=== PATIENT | male | born 1965 | race Caucasian/White ===

== ENCOUNTER 2018-02-19 07:22 | Emergency (ER) | payer BC ==
[2018-02-19] MEDS ORDERED: KETOROLAC 60 MG/2 ML VIAL IM STA (07:50)
--- NOTE | 2018-02-19 07:52 | ED ---
General Adult HPI - General Chief complaint: Fall Stated complaint: Fall-SHoulder and Hip Pain Time Seen by Provider: 02/19/18 07:22 Source: patient, RN notes reviewed Mode of arrival: ambulatory Limitations: no limitations - History of Present Illness Initial comments: This is a 53-year-old male who states she was standing on a chair when his left leg gave out which occasionally will he fell off the chair landed on his left shoulder and his left lower back. Patient comes in after a week of pain and states his shoulder still hurts in his left lower back hurts as well. Patient states the pain does not seem to be improving patient states not taking any pain medicines at all at this time he is not taking any Aleve or Motrin. Patient denies any head trauma or neck pain. Patient denies any chest pain or abdominal pain. Patient denies any upper back pain. Patient denies any other problems at this time. - Related Data Previous Rx's Medication Instructions Recorded Hydrocodone/Acetaminophen [[place] 1 each PO Q4HR PRN #14 tab 02/19/18 5-325] Ibuprofen [Motrin] 600 mg PO Q6HR PRN #20 tab 02/19/18 Allergies Allergy/AdvReac Type Severity Reaction Status Date / Time celecoxib [From Celebrex] Allergy Rash/Hives Verified 02/19/18 07:27 Review of Systems ROS Statement: Those systems with pertinent positive or pertinent negative responses have been documented in the HPI. ROS Other: All systems not noted in ROS Statement are negative. Past Medical History Additional Past Medical History / Comment(s): chronic back pain History of Any Multi-Drug Resistant Organisms: None Reported Past Surgical History: Back Surgery, Orthopedic Surgery Past Psychological History: No Psychological Hx Reported Smoking Status: Former smoker Past Alcohol Use History: Occasional Past Drug Use History: None Reported General Exam - General Exam Comments Initial Comments: GENERAL Patient is well-developed and well-nourished. Patient is in mild distress. EYES Patient's pupils are equal and round. Extraocular motion is intact SKIN Unremarkable NEURO The patient is alert and oriented 3 PYSCH Patient has normal interpersonal interactions. MUSCULOSKELETAL Patient has some tenderness in the left lower back. Patient has some lateral shoulder tenderness but he has full range of motion of that shoulder. Patient has full range of motion of his left hip as well. Limitations: no limitations Course Vital Signs 02/19/18 07:24 Temperature 98.0 F Pulse Rate 77 Respiratory 18 Rate Blood Pressure 150/85 O2 Sat by Pulse 99 Oximetry Medical Decision Making - Medical Decision Making Results the shoulder and hip pelvis and lumbar spine show no acute abnormalities. Disposition Clinical Impression: Shoulder contusion, Lumbar strain Disposition: HOME SELF-CARE Condition: Good Instructions: Low Back Strain (ED) Prescriptions: Hydrocodone/Acetaminophen [Waxhaw 5-325] 1 each PO Q4HR PRN #14 tab PRN Reason: Pain Ibuprofen [Motrin] 600 mg PO Q6HR PRN #20 tab PRN Reason: For pain Is patient prescribed a controlled substance at d/c from ED?: Yes When asked, does pt state using other controlled substances?: No Referrals: None,Stated [Primary Care Provider] - 1-2 days Time of Disposition: 08:49
--- NOTE | 2018-02-19 08:35 | XR ---
EXAMINATION TYPE: XR Hip Complete LT , 2 VIEWS DATE OF EXAM ORDERED: 02/19/2018 HISTORY: Pain. COMPARISON: None. FINDINGS: There is heterotopic new bone formation adjacent to the greater trochanter of the left hip . No fracture is identified. IMPRESSION: NO ACUTE OSSEOUS LESION.
--- NOTE | 2018-02-19 08:36 | XR ---
EXAMINATION TYPE: XR pelvis AP view , ONE VIEW DATE OF EXAM ORDERED: 02/19/2018 HISTORY: Pain. COMPARISON: None. FINDINGS: Osseous structures about the pelvis are normal. No fracture or dislocation is seen. There are degenerative changes of both hips. There is heterotopic new bone seen adjacent to the greater tro chanter of the left hip. IMPRESSION: NO ACUTE OSSEOUS LESION.
--- NOTE | 2018-02-19 08:38 | XR ---
EXAMINATION TYPE: XR lumbar spine 2 or 3V , 3 VIEWS DATE OF EXAM ORDERED: 02/19/2018 HISTORY: Pain. COMPARISON: Previous study dated 04/07/2009. FINDINGS: There is a mild dextroscoliosis. There is a mild retrograde listhesis of L3 on L4. Alignment otherwise maintained. There is degenerati ve disc disease most marked at L3-4. This hypertrophic spondylosis and mild spondylosis deformans. Th e pedicles are intact. There is no spondylolysis. IMPRESSION: 1. NO ACUTE OSSEOUS LESION. 2. MODERATE DEGENERATIVE CHANGE.
--- NOTE | 2018-02-19 08:40 | XR ---
EXAMINATION TYPE: XR shoulder complete LT , 3 VIEWS DATE OF EXAM ORDERED: 02/19/2018 HISTORY: Pain. COMPARISON: None. FINDINGS: There is osseous malunion of a fracture of the distal one third of the left clavicle. No a cute fracture is seen. No dislocation is evident. IMPRESSION: 1. NO ACUTE OSSEOUS LESION. 2. OLD, MALUNION FRACTURE OF THE DISTAL LEFT CLAVICLE. CODE P: SUBSEQUENT ENCOUNTER FOR CLOSED FRACTURE WITH MALUNION.
[2018-02-19 09:11] VITALS: BP 149/83; PULSE 73; RESP 16; TEMP 97.7
== END 2018-02-19 09:14 | disposition home or self-care (01) ==
LOC: EC 07:22
DX: S39.012A Strain of muscle, fascia and tendon of lower back, initial encounter (principal); S40.012A Contusion of left shoulder, initial encounter; Z87.891 Personal history of nicotine dependence; Z88.6 Allergy status to analgesic agent; W07.XXXA Fall from chair, initial encounter
CPT/HCPCS: 72100; 72170; 73030; 73502; 99283; 96372; J1885

== ENCOUNTER 2020-06-04 09:51 | Observation (INO) | payer BC, MEDICARE ==
[2020-06-04] MEDS ORDERED: IPRATROPIUM-ALBUTEROL 3 ML NEB INHALATION STA (10:38)
--- NOTE | 2020-06-04 10:39 | ED ---
Chest Pain HPI - General Chief Complaint: Chest Pain Stated Complaint: Chest pain Time Seen by Provider: 06/04/20 09:55 Source: patient Mode of arrival: ambulatory Limitations: no limitations - History of Present Illness Initial Comments: Patient is a 55-year-old male with past history of asthma who presents to the emergency department with reported chest pain and shortness of breath. Patient reports that for the past month he feels as if his asthma has been acting up on him. States he wakes up every day with chest pressure and inability to his br eath. Reports he does not have any inhalers at home to use. Has a mild productive cough with yellow sputum. No fevers or chills. No sick contacts or similar symptoms. No contact with anyone positive of Covid. Denies any calf pain or swelling. No recent travel. No history of DVT or PE. Patient reports that he has been drinking every day to help drowned out his symptoms. Attempts to try and quit drinking at home on his own however has been unsuccessful. Denies any withdrawal seizures. States he drinks a fifth per day. Reports to feeling depressed however not suicidal. Has had a previous stress test however this was when he was 31 years old. No ripping or tearing sensation to his back. No other alleviating, precipitating or modifying factors - Related Data Home Medications Medication Instructions Recorded Confirmed Multivitamins, Thera [Multivitamin 1 tab PO DAILY 06/04/20 06/04/20 (formulary)] Allergies Allergy/AdvReac Type Severity Reaction Status Date / Time celecoxib [From Celebrex] Allergy Rash/Hives Verified 06/04/20 11:00 Review of Systems ROS Statement: Those systems with pertinent positive or pertinent negative responses have been documented in the HPI. ROS Other: All systems not noted in ROS Statement are negative. EKG Findings - EKG Comments: EKG Findings:: EKG demonstrates a normal sinus rhythm with a ventricular rate of 80. ND interval 134. QRS 132. QTC of 463. Right bundle branch block present. No acute ST segment elevations or depressions concerning for ischemic changes or infarction. Past Medical History Past Medical History: Asthma Additional Past Medical History / Comment(s): chronic back pain History of Any Multi-Drug Resistant Organisms: None Reported Past Surgical History: Back Surgery, Orthopedic Surgery Additional Past Surgical History / Comment(s): shoulders, femer Past Psychological History: Depression Smoking Status: Former smoker Past Alcohol Use History: Daily Past Drug Use History: None Reported - Past Family History Father Family Medical History: Cancer Additional Family Medical History / Comment(s): Father from metastatic cancer/lung cancer Mother Family Medical History: Renal Disease Additional Family Medical History / Comment(s): Mother was on dialysis. She is . General Exam Limitations: no limitations Course Vital Signs 06/04/20 06/04/20 06/04/20 09:52 10:25 10:30 Temperature 98.4 F Pulse Rate 89 87 Pulse Rate [ 83 Curing Press Operator ] Respiratory 18 16 Rate Blood Pressure 164/97 150/101 O2 Sat by Pulse 100 97 Oximetry 06/04/20 06/04/20 06/04/20 10:48 10:57 11:00 Temperature Pulse Rate 84 88 85 Pulse Rate [ Curing Press Operator ] Respiratory 16 Rate Blood Pressure O2 Sat by Pulse 97 Oximetry 06/04/20 06/04/20 11:30 12:04 Temperature Pulse Rate 84 85 Pulse Rate [ Curing Press Operator ] Respiratory 16 16 Rate Blood Pressure 147/95 139/89 O2 Sat by Pulse 98 98 Oximetry Chest Pain MDM - MDM Upon arrival the patient is placed into room 2. A thorough history and physical exam is performed. Patient is hooked up to continuous pulse ox and cardiac monitoring. A 12-lead EKG is performed. Laboratory studies are conducted. D- dimer 0.51 which is age appropriate. Serum alcohol is 151. Troponin is negative. Chest x-ray demonstrates hyperinflated lungs. I discuss the diagnosis, differential and treatment options. I did recommend hospital admission orders from the patient's troponins and get a cardiology consultation. Patient will be placed on alcohol withdrawal for occult. The patient did agree to this plan. I discussed case with Dr. Quesada who agreed to admission. The patient was then transferred to the floor in stable condition Disposition Clinical Impression: Chest pain, Alcohol abuse, COPD (chronic obstructive pulmonary disease) Disposition: ADMITTED IP TO THIS HOSP Condition: Stable Is patient prescribed a controlled substance at d/c from ED?: No Decision to Admit Reason: Admit from EC Decision Date: 06/04/20 Decision Time: 12:14
[2020-06-04 10:42] LABS: Basophils # (A) 0.1 k/uL (0-0.2); Basophils % (A) 1 %; Eosinophils # (A) 0.1 k/uL (0-0.7); Eosinophils % (A) 1 %; HCT 49.1 % (39.0-53.0); HGB 16.2 gm/dL (13.0-17.5); Lymphocytes % (A) 15 %; MCH 32.5 pg (25.0-35.0); MCV 98.4 fL (80.0-100.0); Mean Platelet Volume 6.7; Monocytes # (A) 0.6 k/uL (0-1.0); Monocytes % (A) 9 %; Neutrophils # (A) 4.8 k/uL (1.3-7.7); Neutrophils % (A) 70 %; Platelet Count 324 k/uL (150-450); RBC 4.99 m/uL (4.30-5.90); RDW 12.3 % (11.5-15.5); WBC 6.8 k/uL (3.8-10.6)
[2020-06-04 10:48] LABS: Partial Thromboplastin Time 22.5 sec (22.0-30.0); Prothrombin Time 10.6 sec (9.0-12.0)
--- NOTE | 2020-06-04 10:49 | XR ---
EXAMINATION TYPE: XR chest 2V DATE OF EXAM: 06/04/2020 COMPARISON: 04/07/2009 TECHNIQUE: PA and lateral views submitted. HISTORY: Chest pain FINDINGS: The lungs are clear and there is no pneumothorax, pleural effusion, or focal pneumonia. Arthropathy of the shoulders. Hypertrophic and degenerative change of the spine. Hyperinflation of the lungs. No overt failure. Heart size normal. No overt failure. IMPRESSION: 1. No acute process. Correlate for COPD or asthma.
[2020-06-04 10:50] LABS: ALT 42 U/L (4-49); AST 70 U/L (17-59); African American GFR (CKD) >90 (>60 ml/min/1.73 sqM); Albumin 4.8 g/dL (3.5-5.0); Alkaline Phosphatase 90 U/L (38-126); Anion Gap 10 mmol/L; Blood Urea Nitrogen 7 mg/dL (9-20); Calcium 9.4 mg/dL (8.4-10.2); Carbon Dioxide 26 mmol/L (22-30); Chloride 102 mmol/L (98-107); Glucose 108 mg/dL (74-99); Magnesium 2.1 mg/dL (1.6-2.3); Non-African American GFR(CKD) >90 (>60 ml/min/1.73 sqM); Potassium 3.8 mmol/L (3.5-5.1); Sodium 138 mmol/L (137-145); Total Bilirubin 0.7 mg/dL (0.2-1.3); Total Protein 7.6 g/dL (6.3-8.2)
[2020-06-04 10:57] LABS: Alcohol 151 mg/dL
[2020-06-04] MEDS ORDERED: THIAMINE 100 MG/ML 2 ML VIAL IM STA (12:12)
[2020-06-04] MEDS ORDERED: LORazepam 2 MG/ML INJ IV PRN (12:12)
[2020-06-04] MEDS ORDERED: NALOXONE 0.4 MG/ML 1 ML VIAL IV PRN (12:15)
[2020-06-04] MEDS ORDERED: methylPREDNISolone SOD SUCCI 125 MG/2 ML VIAL IV STA (12:23)
[2020-06-04] MEDS: SODIUM CHLORIDE 0.9% 1,000 ML IV SCH (13:00)
[2020-06-04] MEDS ORDERED: HYDROmorphone 0.5 MG/0.5 ML SYRINGE IVP PRN (13:56)
[2020-06-04] MEDS ORDERED: TEMAZEPAM 15 MG CAP PO PRN (13:56)
[2020-06-04] MEDS ORDERED: HYDROcodone/APAP 5-325MG 1 EACH TAB PO PRN (13:56)
[2020-06-04] MEDS ORDERED: cloNIDine HCL 0.1 MG TAB PO PRN (13:56)
[2020-06-04] MEDS: LORazepam 2 MG/ML INJ IV PRN ×2 (14:21→21:09)
--- NOTE | 2020-06-04 15:48 | P.CRDCN ---
History of Present Illness Consult date: 06/04/20 Chief complaint: Chest tightness History of present illness: This is a 55-year-old gentleman who was somewhat poor historian with no significant past medical history of coronary artery disease or congestive heart failure or cardiac arrhythmia but significant history of drinking alcohol on daily basis presented to the hospital complaining of chest tightness as well as multiple symptoms including extensive cough as well as sputum production. The patient stated that his symptoms started about 3 weeks ago and he's been coughing every day since then. He produced significant amount of sputum. He wasn't sure if he developed any fever or any chills. For the last several days he has been experiencing chest tightness without any radiation to the arms or neck or shoulders. He stated that the chest tightness is mainly coming after an extensive cough. Also he describes shortness of breath. No dizziness or lightheadedness and no syncope. No sweating. The patient stated that he has been drinking whiskey every day on daily basis.we consulted to see the patient mainly for further evaluation of chest discomfort. The first set of troponin came in to be unremarkable. The EKG showed sinus rhythm with RBBB. The chest x-ray did not show any acute abnormalities. Past Medical History Past Medical History: Asthma Additional Past Medical History / Comment(s): chronic back pain History of Any Multi-Drug Resistant Organisms: None Reported Past Surgical History: Back Surgery, Orthopedic Surgery Additional Past Surgical History / Comment(s): shoulders, femer Past Anesthesia/Blood Transfusion Reactions: No Reported Reaction Past Psychological History: Depression Smoking Status: Former smoker Past Alcohol Use History: Daily Past Drug Use History: None Reported - Past Family History Father Family Medical History: Cancer Additional Family Medical History / Comment(s): Father from metastatic cancer/lung cancer Mother Family Medical History: Renal Disease Additional Family Medical History / Comment(s): Mother was on dialysis. She is . Medications and Allergies Home Medications Medication Instructions Recorded Confirmed Type Multivitamins, Thera [Multivitamin 1 tab PO DAILY 06/04/20 06/04/20 History (formulary)] Allergies Allergy/AdvReac Type Severity Reaction Status Date / Time celecoxib [From Celebrex] Allergy Rash/Hives Verified 06/04/20 11:00 Physical Exam Vitals: Vital Signs Temp Pulse Pulse Pulse Resp BP BP 06/04/20 13:23 98 F 83 16 173/97 06/04/20 12:56 78 16 160/96 06/04/20 12:04 85 16 139/89 06/04/20 11:30 84 16 147/95 06/04/20 11:00 85 16 06/04/20 10:57 88 06/04/20 10:48 84 06/04/20 10:30 87 16 150/101 06/04/20 10:25 83 06/04/20 09:52 98.4 F 89 18 164/97 Pulse Ox 06/04/20 13:23 97 06/04/20 12:56 100 06/04/20 12:04 98 06/04/20 11:30 98 06/04/20 11:00 97 06/04/20 10:57 06/04/20 10:48 06/04/20 10:30 97 06/04/20 10:25 06/04/20 09:52 100 Intake and Output 06/04/20 06/04/20 06/04/20 06:59 14:59 22:59 Other: Weight 86.183 kg - Constitutional General appearance: no acute distress - Respiratory Respiratory: bilateral: diminished - Cardiovascular Rhythm: regular Heart sounds: normal: S1, S2 Results 06/04/20 10:14 06/04/20 10:14 Cardiac Enzymes 06/04/20 06/04/20 Range/Units 10:14 10:14 AST 70 H (17-59) U/L Troponin I <0.012 (0.000-0.034) ng/mL Coagulation 06/04/20 Range/Units 10:14 PT 10.6 (9.0-12.0) sec APTT 22.5 (22.0-30.0) sec CBC 06/04/20 Range/Units 10:14 WBC 6.8 (3.8-10.6) k/uL RBC 4.99 (4.30-5.90) m/uL Hgb 16.2 (13.0-17.5) gm/dL Hct 49.1 (39.0-53.0) % Plt Count 324 (150-450) k/uL Comprehensive Metabolic Panel 06/04/20 Range/Units 10:14 Sodium 138 (137-145) mmol/L Potassium 3.8 (3.5-5.1) mmol/L Chloride 102 (98-107) mmol/L Carbon Dioxide 26 (22-30) mmol/L BUN 7 L (9-20) mg/dL Creatinine 0.71 (0.66-1.25) mg/dL Glucose 108 H (74-99) mg/dL Calcium 9.4 (8.4-10.2) mg/dL AST 70 H (17-59) U/L ALT 42 (4-49) U/L Alkaline Phosphatase 90 (38-126) U/L Total Protein 7.6 (6.3-8.2) g/dL Albumin 4.8 (3.5-5.0) g/dL Current Medications Generic Name Dose Route Start Last Admin Trade Name Freq PRN Reason Stop Dose Admin Hydrocodone Bitart/Acetaminophen 1 each 06/04/20 13:56 Soldier 5-325 PO Q6HR PRN Pain Albuterol/Ipratropium 3 ml 06/04/20 16:00 Duoneb 0.5 Mg-3 Mg/3 Ml Soln INHALATION RT-Q4H CYNTHIA Clonidine 0.1 mg 06/04/20 13:56 Catapres PO Q4HR PRN Hypertension Clonidine 0.1 mg 06/04/20 13:56 Catapres PO TID CYNTHIA Folic Acid 1 mg 06/05/20 12:00 Folic Acid PO DAILY@1200 [facility] Heparin Sodium (Porcine) 5,000 unit 06/04/20 14:00 Heparin SQ Q12HR CYNTHIA Hydromorphone HCl 0.5 mg 06/04/20 13:56 Dilaudid IVP Q3HR PRN Severe Pain Sodium Chloride 1,000 mls @ 20 mls/hr 06/04/20 12:15 06/04/20 13:00 Saline 0.9% IV 20 mls/hr .Q24H CYNTHIA Administration Lorazepam 1 mg 06/04/20 12:12 Ativan IV Q2HR PRN CIWA 8 or 9 Lorazepam 1 mg 06/04/20 12:12 06/04/20 14:21 Ativan IV 1 mg Q1HR PRN Administration CIWA 10 to 15 Lorazepam 2 mg 06/04/20 12:12 Ativan IV 06/06/20 12:12 Q10M PRN CIWA 16 or higher Lorazepam 1 mg 06/04/20 13:36 Ativan PO Q1HR PRN Agitation Multivitamins 1 each 06/05/20 12:00 Theragran PO DAILY@1200 CYNTHIA Naloxone HCl 0.2 mg 06/04/20 12:15 Narcan IV Q2M PRN Opioid Reversal Pantoprazole Sodium 40 mg 06/05/20 07:30 Protonix PO AC-BRKFST CYNTHIA Temazepam 15 mg 06/04/20 13:56 Restoril PO HS PRN Insomnia Thiamine HCl 100 mg 06/05/20 12:00 Vitamin B-1 PO DAILY@1200 CYNTHIA Intake and Output 06/04/20 06/04/20 06/04/20 06:59 14:59 22:59 Other: Weight 86.183 kg Patient Weight 06/05/20 06:59 Weight 86.183 kg 06/04/20 10:14 06/04/20 10:14 Assessment and Plan Assessment: Assessment #1 atypical chest discomfort #2 cough and sputum production #3 alcohol abuse #4 showing the buccal Plan #1 rule out acute coronary event #2 follow-up on the serial cardiac enzymes #3 obtain an echocardiogram was Doppler #4 I am concerned about alcohol withdrawal as well as DT #5 follow-up with the patient Thank you for allowing us participate in his care
[2020-06-04] MEDS: IPRATROPIUM-ALBUTEROL 3 ML NEB INHALATION SCH ×2 (15:52→19:45)
[2020-06-04] MEDS: HEPARIN SODIUM,PORCINE 5,000 UNIT/ML 1 ML VIAL SQ SCH ×2 (16:04→21:07)
[2020-06-04] MEDS: cloNIDine HCL 0.1 MG TAB PO SCH ×2 (16:04→21:07)
[2020-06-04] MEDS: LORazepam 1 MG TAB PO PRN (16:04)
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
[2020-06-04 16:52] LABS: Appearance,Urine Clear (Clear); Bilirubin,Urine Negative (Negative); Blood,Urine Negative (Negative); Color,Urine Yellow; Glucose,Urine (UA) Trace (Negative); Ketones,Urine Negative (Negative); Leukocyte Esterase,Urine Negative (Negative); Nitrite,Urine Negative (Negative); PH, Urine 7.5 (5.0-8.0); Protein,Urine Trace (Negative); Specific Gravity,Urine 1.023 (1.001-1.035); Urobilinogen,Urine <2.0 mg/dL (<2.0)
[2020-06-04 17:08] LABS: Amphetamine Screen,Urine Not Detected (NotDetected); Barbiturate Screen,Urine Not Detected (NotDetected); Benzodiazepines Screen,Urine Detected (NotDetected); Cocaine Screen,Urine Not Detected (NotDetected); Methadone Screen, Urine Not Detected (NotDetected); Opiate Screen,Urine Not Detected (NotDetected); Oxycodone Screen, Urine Not Detected (NotDetected); Phencyclidine Screen,Urine Not Detected (NotDetected); Tricyclic Antidepressant,Urine Not Detected (NotDetected); Urn Cannabinoid Scrn Detected (NotDetected)
[2020-06-04] MEDS ORDERED: HALOPERIDOL LACTATE 5 MG/ML 1 ML VIAL IM PRN (17:26)
[2020-06-04] MEDS ORDERED: HALOPERIDOL LACTATE 5 MG/ML 1 ML VIAL IM STA (17:27)
[2020-06-04] MEDS ORDERED: THIAMINE 100 MG TAB PO SCH (17:30)
[2020-06-05] MEDS: IPRATROPIUM-ALBUTEROL 3 ML NEB INHALATION SCH ×6 (00:15→21:29)
[2020-06-05] MEDS: LORazepam 2 MG/ML INJ IV PRN ×5 (04:56→20:48)
[2020-06-05 06:24] LABS: Basophils % (A) 0 %; Eosinophils % (A) 0 %; HCT 44.1 % (39.0-53.0); HGB 14.6 gm/dL (13.0-17.5); Lymphocytes # (A) 0.4 k/uL (1.0-4.8); Lymphocytes % (A) 5 %; MCH 32.4 pg (25.0-35.0); MCHC 33.1 g/dL (31.0-37.0); MCV 97.8 fL (80.0-100.0); Mean Platelet Volume 6.9; Monocytes # (A) 0.5 k/uL (0-1.0); Monocytes % (A) 8 %; Neutrophils # (A) 5.7 k/uL (1.3-7.7); Neutrophils % (A) 85 %; Platelet Count 268 k/uL (150-450); RBC 4.51 m/uL (4.30-5.90); RDW 12.2 % (11.5-15.5); WBC 6.7 k/uL (3.8-10.6)
[2020-06-05 06:40] LABS: African American GFR (CKD) >90 (>60 ml/min/1.73 sqM); Anion Gap 6 mmol/L; Blood Urea Nitrogen 11 mg/dL (9-20); Calcium 9.1 mg/dL (8.4-10.2); Carbon Dioxide 26 mmol/L (22-30); Chloride 103 mmol/L (98-107); Glucose 137 mg/dL (74-99); Non-African American GFR(CKD) >90 (>60 ml/min/1.73 sqM); Potassium 4.2 mmol/L (3.5-5.1); Sodium 135 mmol/L (137-145)
[2020-06-05] MEDS: PANTOPRAZOLE 40 MG TABLET PO SCH (07:04)
[2020-06-05 08:06] LABS: Cholesterol 207 mg/dL (<200); Triglycerides 172 mg/dL (<150)
[2020-06-05 08:14] LABS: LDL Cholesterol,Calculated 62 mg/dL (0-99)
[2020-06-05 08:26] LABS: HDL Cholesterol 111 mg/dL (40-60)
[2020-06-05] MEDS: HEPARIN SODIUM,PORCINE 5,000 UNIT/ML 1 ML VIAL SQ SCH ×2 (08:57→20:53)
[2020-06-05] MEDS: cloNIDine HCL 0.1 MG TAB PO SCH ×3 (08:57→21:00)
--- NOTE | 2020-06-05 09:49 | ECHOF ---
Referral Reason:cp MEASUREMENTS -------- HEIGHT: 167.6 cm WEIGHT: 83.9 kg BP: 136/70 IVSd: 1.5 cm (0.6 - 1.1) LVIDd: 3.7 cm (3.9 - 5.3) LVPWd: 1.5 cm (0.6 - 1.1) IVSs: 2.0 cm LVIDs: 2.1 cm LVPWs: 2.1 cm LAESV Index (A-L): 14.23 ml/m Ao Diam: 3.0 cm (2.0 - 3.7) AV Cusp: 2.1 cm (1.5 - 2.6) LA Diam: 2.7 cm (2.7 - 3.8) MV EXCURSION: 11.800 mm (> 18.000) MV EF SLOPE: 54 mm/s (70 - 150) EPSS: 0.2 cm MV E Omar: 0.66 m/s MV DecT: 253 ms MV A Omar: 0.83 m/s MV E/A Ratio: 0.80 RAP: 5.00 mmHg RVSP: 12.23 mmHg FINDINGS -------- This was a technically good study. The left ventricular size is normal. There is moderate concentric left ventricular hypertrophy. O verall left ventricular systolic function is normal with, an EF between 55 - 60 %. The diastolic fi lling pattern is normal for the age of the patient 8.31. The right ventricle is normal in size. The left atrial size is normal. Normal LA size by volume 22+/-6 ml/m2. The right atrial size is normal. Interatrial and interventricular septum intact. The aortic valve is trileaflet and appears structurally normal. The mitral valve is normal. There is trace mitral regurgitation. The tricuspid valve appears structurally normal. Trace tricuspid regurgitation present. Right migel tricular systolic pressure is normal at < 35 mmHg. There is no pulmonic regurgitation present. The aortic root size is normal. Normal inferior vena cava with normal inspiratory collapse consistent with estimated right atrial pre ssure of 5 mmHg. There is no pericardial effusion. CONCLUSIONS -------- 1. The left ventricular size is normal. 2. There is moderate concentric left ventricular hypertrophy. 3. Overall left ventricular systolic function is normal with, an EF between 55 - 60 %. 4. The diastolic filling pattern is normal for the age of the patient 8.31 5. There is trace mitral regurgitation. 6. Trace tricuspid regurgitation present. RECRUITING ASSISTANT: Tamara Bell RDCS
[2020-06-05] MEDS ORDERED: CAFFEINE CITRATE 60 MG/3 ML VIAL IV PRN (10:35)
[2020-06-05] MEDS ORDERED: AMINOPHYLLINE 500 MG/20 ML VIAL IV PRN (10:35)
[2020-06-05] MEDS ORDERED: REGADENOSON 0.4 MG/5 ML SYRINGE IV ONE (10:35)
[2020-06-05] MEDS: MULTIVITAMINS, THERA 1 EACH TAB PO SCH (13:33)
[2020-06-05] MEDS: FOLIC ACID 1 MG TAB PO SCH (13:33)
[2020-06-05] MEDS: THIAMINE 100 MG TAB PO SCH (13:33)
[2020-06-05 14:29] VITALS: BMI 29.9
[2020-06-05 16:18] VITALS: RESP 18
[2020-06-05] MEDS ORDERED: guaiFENesin SYRUP 100MG/5ML 200 MG/10 ML CUP PO PRN (16:29)
[2020-06-05] MEDS ORDERED: ALBUTEROL HFA INHALER INHALATION PRN (17:20)
[2020-06-05] MEDS: SODIUM CHLORIDE 0.9% 1,000 ML IV SCH (17:22)
--- NOTE | 2020-06-05 17:35 | NM ---
EXAMINATION TYPE: NM stress lexiscan cardiolite DATE OF EXAM: 06/05/2020 COMPARISON: NONE HISTORY: Chest pain TECHNIQUE: After the intravenous administration of 10.56 mCi Tc 99m Sestamibi - Cardiolite resting S PECT images acquired 60 minutes post injection. The patient received 0.4mg Lexiscan, 26.2 mCi Tc 99m Sestamibi - Stress images obtained [address] injection FINDINGS: Review of stress and rest SPECT images demonstrates no distinct perfusion abnormality. Gated analysi s shows normal wall motion with an estimated left ventricular ejection fraction of 58 %. TID 1.0 IMPRESSION: 1. No scintigraphic evidence for reversible ischemia. 2. Ejection fraction 58%.
--- NOTE | 2020-06-05 17:39 | P.PN ---
Subjective Progress Note Date: 06/05/20 Principal diagnosis: Atypical chest pain HISTORY OF PRESENTING ILLNESS Patient had presented yesterday with chest pain which felt like a tightness which occurred after heavy drinking and admits he has been undergoing increased stress and anxiety and depression recently. He had workup including troponins which were negative and an echo which showed normal ejection fraction of 55-60%. He had a Lexiscan nuclear stress test today which showed no perfusion defects and no evidence of ischemia. He denies any further chest pain. REVIEW OF SYSTEMS At the time of my exam: CONSTITUTIONAL: Denies fever or chills. CARDIOVASCULAR: Denies chest pain, shortness of breath, orthopnea, PND or palpitations. RESPIRATORY: Denies cough. GASTROINTESTINAL: Denies abdominal pain, diarrhea, constipation, nausea or vomiting. MUSCULOSKELETAL: Denies myalgias. NEUROLOGIC: Denies numbness, tingling or weakness. ENDOCRINE: Denies fatigue, weight change, polydipsia or polyurina. GENITOURINARY: Denies burning, hematuria or urgency with micturation. HEMATOLOGIC: Denies history of anemia or bleeding. PHYSICAL EXAMINATION Blood pressure 128/82 heart rate 91 afebrile and maintaining oxygen saturation on room air. CONSTITUTIONAL: No apparent distress. HEENT: Head is normocephalic. Pupils are equal, round. Sclerae anicteric. Mucous membranes of the mouth are moist. No JVD. No carotid bruit. CHEST EXAMINATION: Lungs are clear to auscultation. No chest wall tenderness is noted on palpation or with deep breathing. HEART EXAMINATION: Regular rate and rhythm. S1, S2 heard. No murmurs, gallops or rub. ABDOMEN: Soft, nontender. Positive bowel sounds. EXTREMITIES: 2+ peripheral pulses, no lower extremity edema and no calf tenderness. NEUROLOGIC EXAMINATION: Patient is awake, alert and oriented x3. ASSESSMENT 1. atypical chest pain 2. Cough and sputum production 3. Alcohol abuse PLAN Patient's chest pain appears atypical and troponins negative and echo normal with normal nuclear stress test. Possible component of anxiety, panic attack. Blood pressure is well controlled and cholesterol panel shows total cholesterol of 207 however with LDL of 62 and HDL 111. No further cardiology recommendations. Patient is stable for discharge from a cardiology standpoint. Objective - Vital Signs Vital signs: Vital Signs Temp 99.2 F 06/05/20 16:00 Pulse 81 06/05/20 16:17 Resp 18 08/20/20 16:17 BP 130/71 06/05/20 16:00 Pulse Ox 97 06/05/20 16:00 Intake & Output 06/04/20 06/05/20 06/05/20 18:59 06:59 18:59 Weight 86.183 kg 84.3 kg 84.3 kg Other: Voiding Method Toilet Toilet Toilet # Voids 1 3 - Labs CBC & Chem 7: 06/05/20 05:57 06/05/20 05:57 Labs: Abnormal Lab Results - Last 24 Hours (Table) 06/05/20 06/05/20 06/05/20 Range/Units 05:57 05:57 05:57 Lymphocytes # 0.4 L (1.0-4.8) k/uL Sodium 135 L (137-145) mmol/L Glucose 137 H (74-99) mg/dL Triglycerides 172 H (<150) mg/dL Cholesterol 207 H (<200) mg/dL HDL Cholesterol 111 H (40-60) mg/dL
[2020-06-05] MEDS: ALBUTEROL HFA INHALER INHALATION SCH (21:29)
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
[2020-06-06] MEDS: IPRATROPIUM-ALBUTEROL 3 ML NEB INHALATION SCH ×4 (00:24→11:34)
[2020-06-06] MEDS: LORazepam 2 MG/ML INJ IV PRN ×2 (03:48→10:32)
[2020-06-06 04:37] VITALS: PULSE 80
[2020-06-06] MEDS: PANTOPRAZOLE 40 MG TABLET PO SCH (06:52)
[2020-06-06] MEDS: cloNIDine HCL 0.1 MG TAB PO SCH (08:56)
[2020-06-06] MEDS: HEPARIN SODIUM,PORCINE 5,000 UNIT/ML 1 ML VIAL SQ SCH (08:57)
[2020-06-06] MEDS: LORazepam 1 MG TAB PO PRN (09:08)
[2020-06-06] MEDS: ALBUTEROL HFA INHALER INHALATION SCH ×2 (09:08→11:33)
[2020-06-06 11:08] VITALS: BP 136/83; TEMP 99.1
[2020-06-06] MEDS: MULTIVITAMINS, THERA 1 EACH TAB PO SCH (14:17)
[2020-06-06] MEDS: THIAMINE 100 MG TAB PO SCH (14:17)
[2020-06-06] MEDS: FOLIC ACID 1 MG TAB PO SCH (14:17)
[2020-06-06] MEDS: SODIUM CHLORIDE 0.9% 1,000 ML IV SCH (14:19)
--- NOTE | 2020-06-06 20:03 | EST ---
EXERCISE STRESS AGE: 55 SEX: Male HT: 66" WEIGHT: 185 pounds PROTOCOL: Lexiscan Cardiolite STAGE: DURATION OF EXERCISE: HEART RATE REST: 82 BLOOD PRESSURE REST: 148/94 MAXIMUM HEART RATE ACHIEVED: 95 MAXIMUM BLOOD PRESSURE: 148/94 85% MPHR: 100% MPHR: METS: INDICATIONS: Chest pain. CLINICAL INFORMATION: STRESS DATA: Heart rate 82, pressure 148/94 mmHg. Baseline EKG showed sinus mechanism. Lexiscan 0.4 mg was given over 15 seconds per protocol. Max heart rate was 95 beats per minute and maximum pressure was 148/94 mmHg. Clinically the patient did not have any symptoms and the EKG did not show any significant ST or T-wave abnormalities concerning for ischemia. CONCLUSION: 1. Nondiagnostic electrocardiogram stress testing in response to Lexiscan. 2. Please follow up on the Cardiolite portion on separate report from Radiology Department. MMODL / IJN: [id number] /
--- NOTE | 2020-06-11 08:51 | P.DS ---
Providers Date of admission: 06/04/20 12:15 Expected date of discharge: 06/06/20 Attending physician: Vitor Quesada Consults: 06/04/20 12:22 Consult Physician Urgent Consulting Provider: [facility] Consult Reason/Comments: acute chest pain Do you want consulting provider notified?: Yes Primary care physician: Stated None Hospital Course: 55-year-old male with past history of asthma who presents to the emergency department with reported chest pain and shortness of breath. Patient reports that for the past month he feels as if his asthma has been acting up on him. States he wakes up every day with chest pressure and inability to his breath. Reports he does not have any inhalers at home to use. Has a mild productive cough with yellow sputum. No fevers or chills. No sick contacts or similar symptoms. No contact with anyone positive of Covid. Denies any calf pain or swelling. No recent travel. No history of DVT or PE. Patient reports that he has been drinking every day to help drowned out his symptoms. Attempts to try and quit drinking at home on his own however has been unsuccessful. Denies any withdrawal seizures. States he drinks a fifth per day. Reports to feeling depressed however not suicidal. Has had a previous stress test however this was when he was 31 years old. No ripping or tearing sensation to his back. No other alleviating, precipitating or modifying factors Assessment #1 atypical chest discomfort #2 cough and sputum production #3 alcohol abuse #4 showing the buccal Plan #1 rule out acute coronary event #2 follow-up on the serial cardiac enzymes #3 obtain an echocardiogram was Doppler #4 I am concerned about alcohol withdrawal as well as DT #5 follow-up with the patient Patient's chest pain appears atypical and troponins negative and echo normal with normal nuclear stress test. Possible component of anxiety, panic attack. Blood pressure is well controlled and cholesterol panel shows total cholesterol of 207 however with LDL of 62 and HDL 111. No further cardiology recommendations. Patient is stable for discharge from a cardiology standpoint. Patient Condition at Discharge: Stable Plan - Discharge Summary Discharge Rx Participant: No New Discharge Prescriptions: New Moxifloxacin HCl [Avelox] 400 mg PO DAILY #7 tablet cloNIDine HCL [Catapres] 0.1 mg PO TID #90 tab Folic Acid 1 mg PO DAILY@1200 tab Albuterol Inhaler [Ventolin Hfa Inhaler] 2 puff INHALATION RT-QID #1 puff Thiamine [Vitamin B-1] 100 mg PO DAILY@1200 tab Continue Multivitamins, Thera [Multivitamin (formulary)] 1 tab PO DAILY Discharge Medication List Multivitamins, Thera [Multivitamin (formulary)] 1 tab PO DAILY 06/04/20 [History] Albuterol Inhaler [Ventolin Hfa Inhaler] 2 puff INHALATION RT-QID #1 puff 06/06/20 [Rx] Folic Acid 1 mg PO DAILY@1200 tab 06/06/20 [Rx] Moxifloxacin HCl [Avelox] 400 mg PO DAILY #7 tablet 06/06/20 [Rx] Thiamine [Vitamin B-1] 100 mg PO DAILY@1200 tab 06/06/20 [Rx] cloNIDine HCL [Catapres] 0.1 mg PO TID #90 tab 06/06/20 [Rx] Follow up Appointment(s)/Referral(s): None,Stated [Primary Care Provider] - 1-2 days Patient Instructions/Handouts: Chest Pain (DC), Alcohol Withdrawal (DC) Discharge Disposition: HOME SELF-CARE
== END 2020-06-06 15:33 | disposition home or self-care (01) ==
LOC: EC 09:51 → 3NCARDOBS 12:15 → 3SCARD 18:33
PROVIDERS: ADMIT Hospitalist; ATTEND Hospitalist
DX: R07.89 Other chest pain (principal); R05 Cough; F10.239 Alcohol dependence with withdrawal, unspecified; F10.229 Alcohol dependence with intoxication, unspecified; F10.231 Alcohol dependence with withdrawal delirium; K70.10 Alcoholic hepatitis without ascites; Y90.6 Blood alcohol level of 120-199 mg/100 ml; J45.909 Unspecified asthma, uncomplicated; K21.9 Gastro-esophageal reflux disease without esophagitis; M47.896 Other spondylosis, lumbar region; K51.90 Ulcerative colitis, unspecified, without complications; F32.9 Major depressive disorder, single episode, unspecified; F41.9 Anxiety disorder, unspecified; I45.10 Unspecified right bundle-branch block; G89.29 Other chronic pain; M54.9 Dorsalgia, unspecified; Z91.19 Patient's noncompliance with other medical treatment and regimen; Z88.6 Allergy status to analgesic agent; Z98.890 Other specified postprocedural states; Z87.891 Personal history of nicotine dependence; Z87.09 Personal history of other diseases of the respiratory system; Z87.828 Personal history of other (healed) physical injury and trauma; Z80.1 Family history of malignant neoplasm of trachea, bronchus and lung; Z84.1 Family history of disorders of kidney and ureter
CPT/HCPCS: 96376 ×3; 96365; 96366; 96372 ×4; 96375; 93005 ×2; 99285; 36415; 94640 ×4; 93017; 93306; 85379; 83880; 80061; 80053; 80048; 83735; 84484; 85025 ×2; 85610; 85730; 81003; 80306; 71046; 78452; G0378 ×4; G0480; A9500; J2060 ×3; J1644 ×3; J2930; J3411; J0696; J2785; 80320

== ENCOUNTER 2021-03-22 15:25 | Emergency (ER) | payer MEDICARE ==
--- NOTE | 2021-03-22 16:27 | ED ---
General Adult HPI - General Chief complaint: Shortness of Breath Stated complaint: SOB Time Seen by Provider: 03/22/21 16:12 Source: patient, RN notes reviewed, old records reviewed Mode of arrival: ambulatory Limitations: no limitations - History of Present Illness Initial comments: 56-year-old male history of asthma presents for evaluation of dyspnea and cough which is been present for the last 1 year. He states that his daughters had witnessed him having some increased difficulty breathing and recommended that he presented to the emergency department for evaluation. He does admit to smoking marijuana, no current tobacco use. He denies fever. Denies a known contact with coronavirus. He denies central chest pain but does have some chest ti ghtness. No vomiting. No lower extremity pain or swelling. No history of DVT or PE. No history of CAD. - Related Data Previous Rx's Medication Instructions Recorded Albuterol Inhaler [Ventolin Hfa 2 puff INHALATION RT-QID #1 unit 03/22/21 Inhaler] predniSONE 50 mg PO DAILY #5 tab 03/22/21 Allergies Allergy/AdvReac Type Severity Reaction Status Date / Time celecoxib [From Celebrex] Allergy Rash/Hives Verified 03/22/21 16:53 Review of Systems ROS Statement: Those systems with pertinent positive or pertinent negative responses have been documented in the HPI. ROS Other: All systems not noted in ROS Statement are negative. Past Medical History Past Medical History: Asthma Additional Past Medical History / Comment(s): chronic back pain History of Any Multi-Drug Resistant Organisms: None Reported Past Surgical History: Back Surgery, Orthopedic Surgery Additional Past Surgical History / Comment(s): shoulders, femer Past Anesthesia/Blood Transfusion Reactions: No Reported Reaction Past Psychological History: Depression Smoking Status: Former smoker Past Alcohol Use History: Abuse, Daily Past Drug Use History: Marijuana - Past Family History Father Family Medical History: Cancer Additional Family Medical History / Comment(s): Father from metastatic cancer/lung cancer Mother Family Medical History: Renal Disease Additional Family Medical History / Comment(s): Mother was on dialysis. She is . General Exam Limitations: no limitations General appearance: alert, in no apparent distress Head exam: Present: atraumatic, normocephalic Eye exam: Present: normal appearance, PERRL, EOMI ENT exam: Present: normal exam Neck exam: Present: normal inspection. Absent: tenderness, meningismus Respiratory exam: Present: decreased breath sounds. Absent: respiratory distress, wheezes Cardiovascular Exam: Present: regular rate, normal rhythm GI/Abdominal exam: Present: soft, distended Extremities exam: Present: normal inspection, normal capillary refill. Absent: pedal edema, calf tenderness Neurological exam: Present: alert, oriented X3, CN II-XII intact. Absent: motor sensory deficit Psychiatric exam: Present: normal affect, normal mood Skin exam: Present: warm, dry, intact. Absent: cyanosis, diaphoretic Course Vital Signs 03/22/21 03/22/21 03/22/21 15:31 16:35 18:36 Temperature 99.3 F Pulse Rate 96 90 Respiratory 22 22 Rate Blood Pressure 138/95 O2 Sat by Pulse 98 Oximetry 03/22/21 18:59 Temperature Pulse Rate 88 Respiratory Rate Blood Pressure O2 Sat by Pulse Oximetry EKG Findings - EKG Comments: EKG Findings:: EKG: Normal sinus rhythm, right bundle branch block, rate of 80, WI interval 138, QRS duration 132, QTC 477, no ST segment elevation. Medical Decision Making - Medical Decision Making 56-year-old male history of asthma presenting with worsening dyspnea over the course of a year. Patient has stable vitals on arrival bile dyspnea and decreased air entry bilaterally. Chest x-ray is clear. He has a CBC showing normal white blood cell count, mildly elevated hemoglobin are normal electrolytes, negative troponin, negative d-dimer, negative BNP. I did give the patient steroids and albuterol. 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 He is given referral for both. Be started on a short course of steroids for worsening asthma. - Lab Data Result diagrams: 03/22/21 16:35 03/22/21 16:35 Lab Results 03/22/21 03/22/21 03/22/21 Range/Units 16:35 16:35 16:35 WBC 5.7 (3.8-10.6) k/uL RBC 5.22 (4.30-5.90) m/uL Hgb 17.7 H (13.0-17.5) gm/dL Hct 49.8 (39.0-53.0) % MCV 95.4 (80.0-100.0) fL MCH 34.0 (25.0-35.0) pg MCHC 35.6 (31.0-37.0) g/dL RDW 12.3 (11.5-15.5) % Plt Count 285 (150-450) k/uL MPV 6.2 Neutrophils % 59 % Lymphocytes % 28 % Monocytes % 9 % Eosinophils % 1 % Basophils % 2 % Neutrophils # 3.3 (1.3-7.7) k/uL Lymphocytes # 1.6 (1.0-4.8) k/uL Monocytes # 0.5 (0-1.0) k/uL Eosinophils # 0.0 (0-0.7) k/uL Basophils # 0.1 (0-0.2) k/uL PT 12.0 (9.0-12.0) sec INR 1.2 H (<1.2) APTT 24.9 (22.0-30.0) sec D-Dimer 0.40 (<0.60) mg/L FEU Sodium 139 (137-145) mmol/L Potassium 4.2 (3.5-5.1) mmol/L Chloride 103 (98-107) mmol/L Carbon Dioxide 26 (22-30) mmol/L Anion Gap 10 mmol/L BUN 16 (9-20) mg/dL Creatinine 0.94 (0.66-1.25) mg/dL Est GFR (CKD-EPI)AfAm >90 (>60 ml/min/1.73 sqM) Est GFR (CKD-EPI)NonAf >90 (>60 ml/min/1.73 sqM) Glucose 140 H (74-99) mg/dL Calcium 8.9 (8.4-10.2) mg/dL Magnesium 2.2 (1.6-2.3) mg/dL Total Bilirubin 1.3 (0.2-1.3) mg/dL AST 103 H (17-59) U/L ALT 46 (4-49) U/L Alkaline Phosphatase 104 (38-126) U/L Troponin I (0.000-0.034) ng/mL NT-Pro-B Natriuret Pep pg/mL Total Protein 7.1 (6.3-8.2) g/dL Albumin 4.3 (3.5-5.0) g/dL 03/22/21 03/22/21 Range/Units 16:35 16:35 WBC (3.8-10.6) k/uL RBC (4.30-5.90) m/uL Hgb (13.0-17.5) gm/dL Hct (39.0-53.0) % MCV (80.0-100.0) fL MCH (25.0-35.0) pg MCHC (31.0-37.0) g/dL RDW (11.5-15.5) % Plt Count (150-450) k/uL MPV Neutrophils % % Lymphocytes % % Monocytes % % Eosinophils % % Basophils % % Neutrophils # (1.3-7.7) k/uL Lymphocytes # (1.0-4.8) k/uL Monocytes # (0-1.0) k/uL Eosinophils # (0-0.7) k/uL Basophils # (0-0.2) k/uL PT (9.0-12.0) sec INR (<1.2) APTT (22.0-30.0) sec D-Dimer (<0.60) mg/L FEU Sodium (137-145) mmol/L Potassium (3.5-5.1) mmol/L Chloride (98-107) mmol/L Carbon Dioxide (22-30) mmol/L Anion Gap mmol/L BUN (9-20) mg/dL Creatinine (0.66-1.25) mg/dL Est GFR (CKD-EPI)AfAm (>60 ml/min/1.73 sqM) Est GFR (CKD-EPI)NonAf (>60 ml/min/1.73 sqM) Glucose (74-99) mg/dL Calcium (8.4-10.2) mg/dL Magnesium (1.6-2.3) mg/dL Total Bilirubin (0.2-1.3) mg/dL AST (17-59) U/L ALT (4-49) U/L Alkaline Phosphatase (38-126) U/L Troponin I <0.012 (0.000-0.034) ng/mL NT-Pro-B Natriuret Pep <11 pg/mL Total Protein (6.3-8.2) g/dL Albumin (3.5-5.0) g/dL Disposition Clinical Impression: Asthma with acute exacerbation Disposition: HOME SELF-CARE Condition: Fair Instructions (If sedation given, give patient instructions): Asthma (ED) Prescriptions: predniSONE 50 mg PO DAILY #5 tab Albuterol Inhaler [Ventolin Hfa Inhaler] 2 puff INHALATION RT-QID #1 unit Is patient prescribed a controlled substance at d/c from ED?: No Referrals: None,Stated [Primary Care Provider] - 1-2 days Sanjay Juan [STAFF PHYSICIAN] - 1-2 days Prosper Goodwin MD [STAFF PHYSICIAN] - 1-2 days Time of Disposition: 19:13
[2021-03-22 16:50] LABS: Basophils # (A) 0.1 k/uL (0-0.2); Basophils % (A) 2 %; Eosinophils % (A) 1 %; HCT 49.8 % (39.0-53.0); HGB 17.7 gm/dL (13.0-17.5); Lymphocytes # (A) 1.6 k/uL (1.0-4.8); Lymphocytes % (A) 28 %; MCHC 35.6 g/dL (31.0-37.0); MCV 95.4 fL (80.0-100.0); Mean Platelet Volume 6.2; Monocytes # (A) 0.5 k/uL (0-1.0); Monocytes % (A) 9 %; Neutrophils # (A) 3.3 k/uL (1.3-7.7); Neutrophils % (A) 59 %; Platelet Count 285 k/uL (150-450); RBC 5.22 m/uL (4.30-5.90); RDW 12.3 % (11.5-15.5); WBC 5.7 k/uL (3.8-10.6)
[2021-03-22] MEDS ORDERED: LORazepam 1 MG TAB PO STA (17:01)
[2021-03-22 17:05] LABS: D-Dimer 0.4 mg/L FEU (<0.60); INR 1.2 (<1.2); Partial Thromboplastin Time 24.9 sec (22.0-30.0)
[2021-03-22 17:09] LABS: ALT 46 U/L (4-49); AST 103 U/L (17-59); African American GFR (CKD) >90 (>60 ml/min/1.73 sqM); Albumin 4.3 g/dL (3.5-5.0); Alkaline Phosphatase 104 U/L (38-126); Anion Gap 10 mmol/L; Blood Urea Nitrogen 16 mg/dL (9-20); Calcium 8.9 mg/dL (8.4-10.2); Carbon Dioxide 26 mmol/L (22-30); Chloride 103 mmol/L (98-107); Glucose 140 mg/dL (74-99); Magnesium 2.2 mg/dL (1.6-2.3); Non-African American GFR(CKD) >90 (>60 ml/min/1.73 sqM); Potassium 4.2 mmol/L (3.5-5.1); Sodium 139 mmol/L (137-145); Total Bilirubin 1.3 mg/dL (0.2-1.3); Total Protein 7.1 g/dL (6.3-8.2)
--- NOTE | 2021-03-22 17:16 | XR ---
EXAMINATION TYPE: XR chest 2V DATE OF EXAM: 03/22/2021 COMPARISON: 06/04/2020 HISTORY: Chest pain TECHNIQUE: 2 views FINDINGS: Heart and mediastinum are normal. Lungs are clear. Diaphragm is normal. Bony thorax is inta ct. IMPRESSION: Normal chest. No change.
[2021-03-22] MEDS ORDERED: ALBUTEROL NEBULIZED 2.5 MG/3 ML INHALATION STA (17:33)
[2021-03-22] MEDS ORDERED: IPRATROPIUM-ALBUTEROL 3 ML NEB INHALATION STA (17:33)
[2021-03-22] MEDS ORDERED: DEXAMETHASONE SOD PHOSPHATE 10 MG/ML 1 ML VIAL IV STA (17:33)
[2021-03-22 19:30] VITALS: BP 136/97; PULSE 94; RESP 18; TEMP 97.9
== END 2021-03-22 19:25 | disposition home or self-care (01) ==
LOC: EC 15:25
DX: J45.901 Unspecified asthma with (acute) exacerbation (principal); F32.9 Major depressive disorder, single episode, unspecified; F12.90 Cannabis use, unspecified, uncomplicated; Z79.51 Long term (current) use of inhaled steroids; Z87.891 Personal history of nicotine dependence
CPT/HCPCS: 36415; 94640; 93005; 85379; 83880; 80053; 83735; 84484; 85025; 85610; 85730; 71046; 99285; 96374; J1100

== ENCOUNTER 2021-07-28 07:58 | Observation (INO) | payer MEDICARE ==
[2021-07-28] MEDS ORDERED: SODIUM CHLORIDE 0.9% 1,000 ML IV STA (08:12)
[2021-07-28] MEDS ORDERED: ONDANSETRON 4 MG/2 ML VIAL IVP STA (08:13)
[2021-07-28] MEDS ORDERED: LORazepam 2 MG/ML INJ IV STA ×2 (08:13→14:32)
--- NOTE | 2021-07-28 08:15 | ED ---
General Adult HPI - General Chief complaint: Abdominal Pain Stated complaint: abd pain Time Seen by Provider: 07/28/21 08:04 Source: patient, RN notes reviewed Mode of arrival: ambulatory Limitations: no limitations - History of Present Illness Initial comments: Patient is a 56-year-old male presented to the emergency room today with a chief complaint of abdominal discomfort over the last few weeks. He does admit that symptoms increase when he eats or drinks. He does feel some discomfort in the right upper quadrant. He does admit that his had some nausea vomiting after eating and drinking. Patient states that he's also had some bouts of diarrhea a back and forth. He does admit that over the last week it's been normal. Patient does admit that he is a daily drinker approximate to 10 beers per day. Last drink was approximately 2 days ago. Patient denies any history of withdrawal seizures. He denies any other complaints or any other symptoms at this time. Patient denies any recent fever, chills, shortness of breath, chest pain, headaches or visual changes, or any other complaints. - Related Data Home Medications Medication Instructions Recorded Confirmed No Known Home Medications 07/28/21 07/28/21 Allergies Allergy/AdvReac Type Severity Reaction Status Date / Time celecoxib [From Celebrex] Allergy Rash/Hives Verified 07/28/21 08:45 Review of Systems ROS Statement: Those systems with pertinent positive or pertinent negative responses have been documented in the HPI. ROS Other: All systems not noted in ROS Statement are negative. Past Medical History Past Medical History: Asthma Additional Past Medical History / Comment(s): chronic back pain History of Any Multi-Drug Resistant Organisms: None Reported Past Surgical History: Back Surgery, Orthopedic Surgery Additional Past Surgical History / Comment(s): shoulders, femur Past Anesthesia/Blood Transfusion Reactions: No Reported Reaction Past Psychological History: Depression Smoking Status: Never smoker Past Alcohol Use History: Abuse, Daily Past Drug Use History: Marijuana - Past Family History Father Family Medical History: Cancer Additional Family Medical History / Comment(s): Father from metastatic cancer/lung cancer Mother Family Medical History: Renal Disease Additional Family Medical History / Comment(s): Mother was on dialysis. She is . General Exam - General Exam Comments Initial Comments: General: The patient is awake and alert, in no distress, and does not appear acutely ill. Eye: extra-ocular movements are intact. No nystagmus. There is normal conjunctiva bilaterally. No signs of icterus. Ears, nose, mouth and throat: There are moist mucous membranes and no oral lesions. Neck: The neck is supple, there is no tenderness or JVD. Cardiovascular: There is a regular rate and rhythm. No murmur, rub or gallop is appreciated. Respiratory: Lungs are clear to auscultation, respirations are non-labored, breath sounds are equal. No wheezes, stridor, rales, or rhonchi. Gastrointestinal: Abdomen is soft on palpation. He does have tenderness in epigastric right upper quadrants. No rebound, guarding. Musculoskeletal: Normal ROM, no tenderness. Strength 5/5. Sensation intact. Neurological: A&O x 3. CN II-XII intact, There are no obvious motor or sensory deficits. Coordination appears grossly intact. Speech is normal. Skin: Skin is warm and dry and no rashes or lesions are noted. Psychiatric: Cooperative, appropriate mood & affect, normal judgment. Limitations: no limitations Course Vital Signs 07/28/21 08:00 Temperature 98.4 F Pulse Rate 79 Respiratory 18 Rate Blood Pressure 173/102 O2 Sat by Pulse 99 Oximetry Medical Decision Making - Medical Decision Making Patient's ultrasound reviewed and does show evidence of possible gallstones versus sludge. Patient did have mildly elevated bilirubin. Does have tenderness in the right upper quadrant. Case was discussed with Dr. Regan adams recommend admitting the patient started on IV antibiotics. Patient given doses of Rocephin, Flagyl here in the ER. Will be admitted to the hospital. He does have history of daily drinking. Will maintain on the CIWA scale. Denies any history of withdrawals. - Lab Data Result diagrams: 07/28/21 08:19 07/28/21 08:19 Lab Results 07/28/21 07/28/21 07/28/21 Range/Units 08:19 08:19 08:19 WBC 6.3 (3.8-10.6) k/uL RBC 4.52 (4.30-5.90) m/uL Hgb 16.1 (13.0-17.5) gm/dL Hct 46.0 (39.0-53.0) % MCV 101.7 H (80.0-100.0) fL MCH 35.7 H (25.0-35.0) pg MCHC 35.1 (31.0-37.0) g/dL RDW 12.8 (11.5-15.5) % Plt Count 322 (150-450) k/uL MPV 6.8 Neutrophils % 69 % Lymphocytes % 18 % Monocytes % 8 % Eosinophils % 2 % Basophils % 1 % Neutrophils # 4.4 (1.3-7.7) k/uL Lymphocytes # 1.2 (1.0-4.8) k/uL Monocytes # 0.5 (0-1.0) k/uL Eosinophils # 0.1 (0-0.7) k/uL Basophils # 0.1 (0-0.2) k/uL Macrocytosis Slight PT 11.5 (9.0-12.0) sec INR 1.1 (<1.2) APTT 22.6 (22.0-30.0) sec Sodium 136 L (137-145) mmol/L Potassium 3.8 (3.5-5.1) mmol/L Chloride 98 (98-107) mmol/L Carbon Dioxide 28 (22-30) mmol/L Anion Gap 10 mmol/L BUN 7 L (9-20) mg/dL Creatinine 0.82 (0.66-1.25) mg/dL Est GFR (CKD-EPI)AfAm >90 (>60 ml/min/1.73 sqM) Est GFR (CKD-EPI)NonAf >90 (>60 ml/min/1.73 sqM) Glucose 136 H (74-99) mg/dL Calcium 9.5 (8.4-10.2) mg/dL Total Bilirubin 2.2 H (0.2-1.3) mg/dL AST 61 H (17-59) U/L ALT 31 (4-49) U/L Alkaline Phosphatase 104 (38-126) U/L Total Protein 7.5 (6.3-8.2) g/dL Albumin 4.4 (3.5-5.0) g/dL Amylase 60 (30-110) U/L Lipase 63 (23-300) U/L Urine Color Urine Appearance (Clear) Urine pH (5.0-8.0) Ur Specific Hiram (1.001-1.035) Urine Protein (Negative) Urine Glucose (UA) (Negative) Urine Ketones (Negative) Urine Blood (Negative) Urine Nitrite (Negative) Urine Bilirubin (Negative) Urine Urobilinogen (<2.0) mg/dL Ur Leukocyte Esterase (Negative) 07/28/21 Range/Units 08:19 WBC (3.8-10.6) k/uL RBC (4.30-5.90) m/uL Hgb (13.0-17.5) gm/dL Hct (39.0-53.0) % MCV (80.0-100.0) fL MCH (25.0-35.0) pg MCHC (31.0-37.0) g/dL RDW (11.5-15.5) % Plt Count (150-450) k/uL MPV Neutrophils % % Lymphocytes % % Monocytes % % Eosinophils % % Basophils % % Neutrophils # (1.3-7.7) k/uL Lymphocytes # (1.0-4.8) k/uL Monocytes # (0-1.0) k/uL Eosinophils # (0-0.7) k/uL Basophils # (0-0.2) k/uL Macrocytosis PT (9.0-12.0) sec INR (<1.2) APTT (22.0-30.0) sec Sodium (137-145) mmol/L Potassium (3.5-5.1) mmol/L Chloride (98-107) mmol/L Carbon Dioxide (22-30) mmol/L Anion Gap mmol/L BUN (9-20) mg/dL Creatinine (0.66-1.25) mg/dL Est GFR (CKD-EPI)AfAm (>60 ml/min/1.73 sqM) Est GFR (CKD-EPI)NonAf (>60 ml/min/1.73 sqM) Glucose (74-99) mg/dL Calcium (8.4-10.2) mg/dL Total Bilirubin (0.2-1.3) mg/dL AST (17-59) U/L ALT (4-49) U/L Alkaline Phosphatase (38-126) U/L Total Protein (6.3-8.2) g/dL Albumin (3.5-5.0) g/dL Amylase (30-110) U/L Lipase (23-300) U/L Urine Color Yellow Urine Appearance Clear (Clear) Urine pH 6.5 (5.0-8.0) Ur Specific Hiram 1.021 (1.001-1.035) Urine Protein Trace H (Negative) Urine Glucose (UA) Negative (Negative) Urine Ketones Negative (Negative) Urine Blood Negative (Negative) Urine Nitrite Negative (Negative) Urine Bilirubin Negative (Negative) Urine Urobilinogen <2.0 (<2.0) mg/dL Ur Leukocyte Esterase Negative (Negative) Disposition Clinical Impression: Cholelithiasis, Biliary colic Disposition: ADMITTED IP TO THIS HOSP Condition: Good Is patient prescribed a controlled substance at d/c from ED?: No Referrals: None,Stated [Primary Care Provider] - 1-2 days Time of Disposition: 11:38
[2021-07-28 09:12] LABS: Appearance,Urine Clear (Clear); Bilirubin,Urine Negative (Negative); Blood,Urine Negative (Negative); Color,Urine Yellow; Glucose,Urine (UA) Negative (Negative); Ketones,Urine Negative (Negative); Leukocyte Esterase,Urine Negative (Negative); Nitrite,Urine Negative (Negative); PH, Urine 6.5 (5.0-8.0); Protein,Urine Trace (Negative); Specific Gravity,Urine 1.021 (1.001-1.035); Urobilinogen,Urine <2.0 mg/dL (<2.0)
[2021-07-28 09:13] LABS: Basophils # (A) 0.1 k/uL (0-0.2); Basophils % (A) 1 %; Eosinophils # (A) 0.1 k/uL (0-0.7); Eosinophils % (A) 2 %; HGB 16.1 gm/dL (13.0-17.5); Lymphocytes # (A) 1.2 k/uL (1.0-4.8); Lymphocytes % (A) 18 %; MCH 35.7 pg (25.0-35.0); MCHC 35.1 g/dL (31.0-37.0); MCV 101.7 fL (80.0-100.0); Macrocytosis Slight; Mean Platelet Volume 6.8; Monocytes # (A) 0.5 k/uL (0-1.0); Monocytes % (A) 8 %; Neutrophils # (A) 4.4 k/uL (1.3-7.7); Neutrophils % (A) 69 %; Platelet Count 322 k/uL (150-450); RBC 4.52 m/uL (4.30-5.90); RDW 12.8 % (11.5-15.5); WBC 6.3 k/uL (3.8-10.6)
--- NOTE | 2021-07-28 09:16 | US ---
EXAMINATION TYPE: US abdomen limited DATE OF EXAM: 07/28/2021 COMPARISON: NONE CLINICAL HISTORY: pain. EXAM MEASUREMENTS: Liver Length: 19.1 cm Gallbladder Wall: 0.2 cm CBD: 0.6 cm Right Kidney: 10.8x6.0x6.6 cm Pancreas: wnl Liver: Increased attenuation Gallbladder: Small amount of sludge seen within the GB Evidence for sonographic Chew's sign: No CBD: wnl Right Kidney: wnl Visualized liver heterogeneously hyperechoic. Gallbladder shows dependent small stones and/or gallbla dder sludge. No surrounding fluid or abnormal gallbladder wall thickening. No biliary dilatation. IMPRESSION: Gallbladder sludge and/or small stones without secondary ultrasound evidence for acute ch olecystitis. Diffuse fatty infiltration and/or underlying hepatocellular disease in the liver. Poorly clinically.
[2021-07-28 09:29] LABS: INR 1.1 (<1.2); Partial Thromboplastin Time 22.6 sec (22.0-30.0); Prothrombin Time 11.5 sec (9.0-12.0)
[2021-07-28 09:43] LABS: ALT 31 U/L (4-49); AST 61 U/L (17-59); African American GFR (CKD) >90 (>60 ml/min/1.73 sqM); Albumin 4.4 g/dL (3.5-5.0); Alkaline Phosphatase 104 U/L (38-126); Amylase 60 U/L (30-110); Anion Gap 10 mmol/L; Blood Urea Nitrogen 7 mg/dL (9-20); Calcium 9.5 mg/dL (8.4-10.2); Carbon Dioxide 28 mmol/L (22-30); Chloride 98 mmol/L (98-107); Glucose 136 mg/dL (74-99); Lipase 63 U/L (23-300); Non-African American GFR(CKD) >90 (>60 ml/min/1.73 sqM); Potassium 3.8 mmol/L (3.5-5.1); Sodium 136 mmol/L (137-145); Total Bilirubin 2.2 mg/dL (0.2-1.3); Total Protein 7.5 g/dL (6.3-8.2)
[2021-07-28] MEDS ORDERED: MORPHINE SULFATE 4 MG/ML SYRINGE IVP STA (11:32)
[2021-07-28] MEDS ORDERED: metroNIDAZOLE-NS PMX 500 MG in SALINE 1 100ML.BAG IVPB STA (11:37)
[2021-07-28] MEDS ORDERED: NALOXONE 0.4 MG/ML 1 ML VIAL IV PRN (11:40)
[2021-07-28] MEDS ORDERED: THIAMINE 100 MG/ML 2 ML VIAL IM STA (11:42)
[2021-07-28] MEDS ORDERED: LORazepam 2 MG/ML INJ IV PRN ×2 (11:42)
[2021-07-28] MEDS: SODIUM CHLORIDE 0.9% 1,000 ML IV SCH (13:46)
--- NOTE | 2021-07-28 14:41 | P.GSHP ---
History of Present Illness H&P Date: 07/28/21 CHIEF COMPLAINT: Abdominal pain HISTORY OF PRESENT ILLNESS: This is a 56-year-old male who presented to the emergency room with complaints of right upper quadrant abdominal pain for the past month. He reports the pain is intermittent and it is worse after eating greasy meals. Over the last few days he reports the pain has become more severe. He has also been vomiting. He reports having small loose stools. He denies any fever or chills or sweats. Patient also drinks about 10 beers daily. His last alcoholic drink was about 2 days ago. He currently denies any withdrawal symptoms. PAST MEDICAL HISTORY: Asthma, COPD, adrenal gland cyst PAST SURGICAL HISTORY: Orthopedic surgeries MEDICATIONS: See list. ALLERGIES: See list. SOCIAL HISTORY: No illicit drug use. Patient smokes marijuana REVIEW OF SYSTEMS: CONSTITUTIONAL: Denies fever or chills. HEENT: Denies blurred vision, vision changes, or eye pain. Denies hemoptysis CARDIOVASCULAR: Denies chest pain or pressure. RESPIRATORY: No shortness of breath. GASTROINTESTINAL: See HPI for pertinent findings HEMATOLOGIC: Denies bleeding disorders. GENITOURINARY: Denies any blood in urine or increased urinary frequency. SKIN: Denies pruitis. Denies rash. PHYSICAL EXAM: VITAL SIGNS: Reviewed GENERAL: Well-developed in no acute distress. HEENT: No sclera icterus. Extraocular movements grossly intact. Moist buccal mucosa. Head is atraumatic, normocephalic. No nasal drainage. ABDOMEN: Soft. Distended. Right upper quadrant tenderness with palpation NEUROLOGIC: Alert and oriented. Cranial nerves II through XII grossly intact. No tremors LABORATORY DATA: WBC is 6.3 hemoglobin is 16.1 platelets are 322 INR is 1.1 sodium 136 potassium 3.8 BUN 7 creatinine 0.8 to glucose 136 total bilirubin 2.2 AST 61 ALT 31 lipase 63 Urinalysis negative for infection COVID-19 not detected IMAGING: Abdominal ultrasound shows gallbladder sludge and/or small stones without secondary ultrasound evidence of acute cholecystitis. Diffuse fatty infiltration and/or underlying hepatocellular disease of the liver ASSESSMENT: 1. Acute cholecystitis. Patient with right upper quadrant abdominal pain and ultrasound findings of gallbladder sludge and small stones 2. Daily alcohol use PLAN: -Patient scheduled for laparoscopic cholecystectomy tomorrow, 07/29/[address] loomis -Patient can have full liquid diet today and then nothing by mouth after midnight -Continue IV fluids -Continue pain medication as needed -Continue IV antibiotics -Continue antiemetics -Continue CIWA protocol for alcohol symptoms -We'll give 1 dose of Ativan IV 1 now due to patient's anxiety -GI prophylaxis Protonix and DVT prophylaxis subcu heparin Physician Tutoring Manager note has been reviewed by physician. Signing provider agrees with the documented findings, assessment, and plan of care. Past Medical History Past Medical History: Asthma Additional Past Medical History / Comment(s): chronic back pain History of Any Multi-Drug Resistant Organisms: None Reported Past Surgical History: Back Surgery, Orthopedic Surgery Additional Past Surgical History / Comment(s): shoulders, femur Past Anesthesia/Blood Transfusion Reactions: No Reported Reaction Past Psychological History: Depression Additional Psychological History / Comment(s): Pt resides alone. He states he has hx of depression but no thoughts of suicide. He states that he feels like he is "losing my mind". He is independent. Smoking Status: Never smoker Past Alcohol Use History: Abuse, Daily Additional Past Alcohol Use History / Comment(s): Pt states in the past he drank beer-unable to state amount of daily consumption but states past few months he has been drinking over a pint a day of whiskey. Last drank today, 06/04/20 Past Drug Use History: Marijuana - Past Family History Father Family Medical History: Cancer Additional Family Medical History / Comment(s): Father from metastatic cancer/lung cancer Mother Family Medical History: Renal Disease Additional Family Medical History / Comment(s): Mother was on dialysis. She is . Medications and Allergies Home Medications Medication Instructions Recorded Confirmed Type No Known Home Medications 07/28/21 07/28/21 History Allergies Allergy/AdvReac Type Severity Reaction Status Date / Time celecoxib [From Celebrex] Allergy Rash/Hives Verified 07/28/21 08:45 Surgical - Exam Vital Signs Temp Pulse Resp BP Pulse Ox 98.4 F 79 18 173/102 99 07/28/21 08:00 07/28/21 08:00 07/28/21 08:00 07/28/21 08:00 07/28/21 08:00 Results - Labs 07/28/21 08:19 07/28/21 08:19 Abnormal Lab Results - Last 24 Hours (Table) 07/28/21 07/28/21 07/28/21 Range/Units 08:19 08:19 08:19 MCV 101.7 H (80.0-100.0) fL MCH 35.7 H (25.0-35.0) pg Sodium 136 L (137-145) mmol/L BUN 7 L (9-20) mg/dL Glucose 136 H (74-99) mg/dL Total Bilirubin 2.2 H (0.2-1.3) mg/dL AST 61 H (17-59) U/L Urine Protein Trace H (Negative) Diabetes panel 07/28/21 Range/Units 08:19 Sodium 136 L (137-145) mmol/L Potassium 3.8 (3.5-5.1) mmol/L Chloride 98 (98-107) mmol/L Carbon Dioxide 28 (22-30) mmol/L BUN 7 L (9-20) mg/dL Creatinine 0.82 (0.66-1.25) mg/dL Glucose 136 H (74-99) mg/dL Calcium 9.5 (8.4-10.2) mg/dL AST 61 H (17-59) U/L ALT 31 (4-49) U/L Alkaline Phosphatase 104 (38-126) U/L Total Protein 7.5 (6.3-8.2) g/dL Albumin 4.4 (3.5-5.0) g/dL Calcium panel 07/28/21 Range/Units 08:19 Calcium 9.5 (8.4-10.2) mg/dL Albumin 4.4 (3.5-5.0) g/dL Pituitary panel 07/28/21 Range/Units 08:19 Sodium 136 L (137-145) mmol/L Potassium 3.8 (3.5-5.1) mmol/L Chloride 98 (98-107) mmol/L Carbon Dioxide 28 (22-30) mmol/L BUN 7 L (9-20) mg/dL Creatinine 0.82 (0.66-1.25) mg/dL Glucose 136 H (74-99) mg/dL Calcium 9.5 (8.4-10.2) mg/dL Adrenal panel 07/28/21 Range/Units 08:19 Sodium 136 L (137-145) mmol/L Potassium 3.8 (3.5-5.1) mmol/L Chloride 98 (98-107) mmol/L Carbon Dioxide 28 (22-30) mmol/L BUN 7 L (9-20) mg/dL Creatinine 0.82 (0.66-1.25) mg/dL Glucose 136 H (74-99) mg/dL Calcium 9.5 (8.4-10.2) mg/dL Total Bilirubin 2.2 H (0.2-1.3) mg/dL AST 61 H (17-59) U/L ALT 31 (4-49) U/L Alkaline Phosphatase 104 (38-126) U/L Total Protein 7.5 (6.3-8.2) g/dL Albumin 4.4 (3.5-5.0) g/dL
[2021-07-28] MEDS: HYDROmorphone 1 MG/ML 1 ML SYRINGE IVP PRN ×2 (15:12→19:36)
[2021-07-28] MEDS: THIAMINE 100 MG TAB PO SCH (15:14)
[2021-07-28] MEDS: PANTOPRAZOLE 40 MG TABLET PO SCH (15:18)
[2021-07-28] MEDS: PIPERACILLIN-TAZOBACTAM 3.375 GM in SODIUM CHLORIDE 0.9% 100 ML IVPB SCH (16:17)
[2021-07-28] MEDS: HEPARIN SODIUM,PORCINE/PF 5,000 UNIT/0.5 ML SYRINGE SQ SCH (19:35)
[2021-07-29] MEDS: PIPERACILLIN-TAZOBACTAM 3.375 GM in SODIUM CHLORIDE 0.9% 100 ML IVPB SCH ×3 (02:03→17:13)
[2021-07-29] MEDS: SODIUM CHLORIDE 0.9% 1,000 ML IV SCH ×2 (03:59→19:17)
[2021-07-29 05:01] LABS: Hepatitis A Antibody IgM Nonreactive (Nonreactive); Hepatitis B Core IgM Nonreactive (Nonreactive); Hepatitis B Surface Antigen Nonreactive (Nonreactive); Hepatitis C IgG Antibody Nonreactive (Nonreactive)
[2021-07-29 05:49] LABS: Basophils % (A) 1 %; Eosinophils # (A) 0.2 k/uL (0-0.7); Eosinophils % (A) 3 %; HCT 39.2 % (39.0-53.0); HGB 13.3 gm/dL (13.0-17.5); Lymphocytes # (A) 1.1 k/uL (1.0-4.8); Lymphocytes % (A) 23 %; MCH 35.6 pg (25.0-35.0); MCHC 33.9 g/dL (31.0-37.0); Macrocytosis Slight; Mean Platelet Volume 6.7; Monocytes # (A) 0.3 k/uL (0-1.0); Monocytes % (A) 7 %; Neutrophils # (A) 2.9 k/uL (1.3-7.7); Neutrophils % (A) 63 %; Platelet Count 226 k/uL (150-450); RBC 3.73 m/uL (4.30-5.90); RDW 12.1 % (11.5-15.5); WBC 4.6 k/uL (3.8-10.6)
[2021-07-29 06:15] LABS: ALT 21 U/L (4-49); AST 44 U/L (17-59); African American GFR (CKD) >90 (>60 ml/min/1.73 sqM); Albumin 3.3 g/dL (3.5-5.0); Albumin/Globulin Ratio 1.3; Alkaline Phosphatase 69 U/L (38-126); Anion Gap 4 mmol/L; Blood Urea Nitrogen 4 mg/dL (9-20); Calcium 8.3 mg/dL (8.4-10.2); Carbon Dioxide 28 mmol/L (22-30); Chloride 103 mmol/L (98-107); Globulin 2.5 g/dL; Glucose 121 mg/dL (74-99); Non-African American GFR(CKD) >90 (>60 ml/min/1.73 sqM); Potassium 3.5 mmol/L (3.5-5.1); Sodium 135 mmol/L (137-145); Total Bilirubin 1.4 mg/dL (0.2-1.3); Total Protein 5.8 g/dL (6.3-8.2)
[2021-07-29] MEDS: THIAMINE 100 MG TAB PO SCH ×2 (08:20→17:13)
[2021-07-29] MEDS: ONDANSETRON 4 MG/2 ML VIAL IVP PRN (08:20)
[2021-07-29] MEDS: PANTOPRAZOLE 40 MG TABLET PO SCH (08:20)
[2021-07-29] MEDS: HEPARIN SODIUM,PORCINE/PF 5,000 UNIT/0.5 ML SYRINGE SQ SCH ×2 (08:21→21:14)
[2021-07-29] MEDS: LORazepam 2 MG/ML INJ IV PRN ×2 (08:58→15:45)
[2021-07-29] MEDS: HYDROmorphone 1 MG/ML 1 ML SYRINGE IVP PRN ×3 (14:16→21:14)
[2021-07-29] MEDS ORDERED: IV FLUID CONTINUATION 1,000 ML IV ONE ×2 (17:58→19:15)
[2021-07-29] MEDS ORDERED: BUPIVACAINE (PF) 0.25% 30 ML VIAL SQ ONE ×2 (18:30→19:33)
[2021-07-29] MEDS ORDERED: fentaNYL (PF) 50 MCG/ML 2 ML AMP ONE (19:58)
[2021-07-29] MEDS ORDERED: PROPOFOL 10 MG/ML 20 ML VIAL IV ONE (19:58)
[2021-07-29] MEDS ORDERED: MIDAZOLAM 2 MG/2 ML VIAL ONE (19:58)
[2021-07-29] MEDS ORDERED: SUCCINYLCHOLINE CHLORIDE 100 MG/5 ML SYR IV ONE (19:58)
[2021-07-29] MEDS ORDERED: ONDANSETRON 4 MG/2 ML VIAL ONE (19:58)
[2021-07-29] MEDS ORDERED: KETOROLAC 15 MG/ML 1 ML VIAL ONE (19:58)
--- NOTE | 2021-07-29 20:00 | P.OP ---
Date of Procedure: 07/29/21 Preoperative Diagnosis: Cholelithiasis Cholecystitis Postoperative Diagnosis: Cholelithiasis Cholecystitis Procedure(s) Performed: Laparoscopic cholecystectomy Anesthesia: RICHARD Surgeon: Dashawn Franks Estimated Blood Loss (ml): 5 Pathology: none sent Condition: stable Disposition: PACU Description of Procedure: The patient was placed on the operating table. The patient received a general endotracheal tube anesthesia. The patients abdomen was prepped and draped in the usual sterile fashion. Through an infraumbilical stab incision, the fascia of the anterior abdominal wall was grasped with a pair of Kochers and then the Veress needle was placed in the peritoneal cavity. Position of the Veress needle was confirmed with positive drop test. The abdomen was then insufflated. After adequate insufflation, the 10 mm trocar was placed in the peritoneal cavity. Following this the laparoscope was placed in the peritoneal cavity. The patient was placed in the head-up, right side up position and then a 5 mm trocar was placed in the right lateral and right subcostal position under direct visualization. A 8 mm trocar was placed in the epigastric position. The gallbladder was grasped in the fundus and infundibulum. Traction on the gallbladder was placed in the lateral and the cephalad positions. The triangle of Calot was visualized.. The cystic duct was bluntly dissected until the union of the cystic duct and common bile duct was seen. A critical view of safety was achieved. The cystic duct was then divided and sealed with the Harmonic scissors. A PDS Endoloop was then placed throughout the cystic duct stump. The cystic artery divided and sealed with the Harmonic scissors. The gallbladder was then removed from the liver bed using Harmonic scissors. The gallbladder was then extracted through the epigastric port site. Operative field was checked for any bleeding spots and Harmonic scissors was used to coagulate the liver bed. The abdomen was irrigated. The trocars were removed. The skin was closed using interrupted 3-0 Vicryl suture. Dermabond dressing were applied. The patient tolerated the procedure well.
[2021-07-29] MEDS ORDERED: diphenhydrAMINE 50 MG/ML 1 ML VIAL ONE (20:01)
[2021-07-29] MEDS ORDERED: diphenhydrAMINE 50 MG/ML 1 ML VIAL IVP ONE (20:03)
[2021-07-29] MEDS ORDERED: HYDROmorphone 0.5 MG/0.5 ML SYRINGE IVP ONE ×2 (20:05→20:10)
[2021-07-29] MEDS ORDERED: LACTATED RINGERS 1,000 ML IV ONE (20:33)
[2021-07-29] MEDS ORDERED: MELATONIN 5 MG TABLET PO SCH (22:15)
[2021-07-30] MEDS: PIPERACILLIN-TAZOBACTAM 3.375 GM in SODIUM CHLORIDE 0.9% 100 ML IVPB SCH ×2 (00:12→07:55)
[2021-07-30] MEDS: HYDROmorphone 1 MG/ML 1 ML SYRINGE IVP PRN ×4 (00:19→08:52)
[2021-07-30] MEDS: SODIUM CHLORIDE 0.9% 1,000 ML IV SCH (03:05)
[2021-07-30 07:48] VITALS: BP 144/80; PULSE 75; RESP 16; TEMP 98.8
[2021-07-30] MEDS: HEPARIN SODIUM,PORCINE/PF 5,000 UNIT/0.5 ML SYRINGE SQ SCH (07:55)
[2021-07-30] MEDS: PANTOPRAZOLE 40 MG TABLET PO SCH (07:55)
[2021-07-30] MEDS: THIAMINE 100 MG TAB PO SCH (07:55)
[2021-07-30] MEDS: ONDANSETRON 4 MG/2 ML VIAL IVP PRN (07:55)
[2021-07-30] MEDS ORDERED: HYDROcodone/APAP 5-325MG 1 EACH TAB PO PRN (08:37)
--- NOTE | 2021-07-30 14:34 | P.DS ---
Providers Date of admission: 07/28/21 11:57 Expected date of discharge: 07/30/21 Attending physician: Dashawn Franks Consults: 07/29/21 20:00 Consult Physician Routine Consulting Provider: Vitor Quesada Consult Reason/Comments: Medical management Do you want consulting provider notified?: Yes Primary care physician: Stated None Hospital Course: Discharge diagnosis 1. Cholelithiasis and cholecystitis status post laparoscopic cholecystectomy 2. Daily alcohol use Hospital course This is a 56-year-old male presented with right upper quadrant abdominal pain with nausea and vomiting. Abdominal ultrasound shows gallbladder sludge and/or small stones without secondary ultrasound evidence of acute cholecystitis. Diffuse fatty infiltration and/or underlying hepatocellular disease of the liver. Patient is status post endoscopic cholecystectomy. He reports that his pain is controlled. He is tolerating diet. He is having flatus. He is up and ambulating. He is afebrile. He is stable for discharge. Please refer to chart for any further details. Physician Cigarette Packer note has been reviewed by physician. Signing provider agrees with the documented findings, assessment, and plan of care. Patient Condition at Discharge: Stable Plan - Discharge Summary Discharge Rx Participant: No New Discharge Prescriptions: New HYDROcodone/APAP 5-325MG [Cowarts 5-325] 1 tab PO Q6HR PRN 3 Days #12 tab PRN Reason: Pain Discharge Medication List HYDROcodone/APAP 5-325MG [C[place]arts 5-325] 1 tab PO Q6HR PRN 3 Days #12 tab 07/30/21 [Rx] Follow up Appointment(s)/Referral(s): None,Stated [Primary Care Provider] - 1-2 days Dashawn Franks MD [STAFF PHYSICIAN] - 1 Week Patient Instructions/Handouts: *Surgery [facility] - Laparoscopic Cholecystectomy Discharge Instructions, At-Risk Alcohol Use (DC) Activity/Diet/Wound Care/Special Instructions: No driving while taking [place] No lifting over 10 pounds You may shower. No soaking or tub baths for 2 weeks Very light activity until you are reevaluated at your follow up appointment with your surgeon Recommend to not drink alcohol while taking Cowarts Discharge Disposition: HOME SELF-CARE
== END 2021-07-30 11:47 | disposition home or self-care (01) ==
LOC: EC 07:58 → 1SOBS 11:57 → 6NMEDSUR 12:03
PROVIDERS: ADMIT Surgery; ATTEND Surgery
DX: K81.2 Acute cholecystitis with chronic cholecystitis (principal); J44.9 Chronic obstructive pulmonary disease, unspecified; E27.8 Other specified disorders of adrenal gland; G89.29 Other chronic pain; M54.9 Dorsalgia, unspecified; F32.9 Major depressive disorder, single episode, unspecified; K76.0 Fatty (change of) liver, not elsewhere classified; F41.9 Anxiety disorder, unspecified; Z20.822 Contact with and (suspected) exposure to COVID-19; Z79.899 Other long term (current) drug therapy; Z88.6 Allergy status to analgesic agent; Z72.89 Other problems related to lifestyle; Z84.1 Family history of disorders of kidney and ureter; Z80.1 Family history of malignant neoplasm of trachea, bronchus and lung
CPT/HCPCS: 96376 ×2; 96372 ×3; 96375 ×2; 96361; 96374; 99285; 36415; 88304; 80053 ×2; 80074; 82150; 83690; 85025 ×2; 85610; 85730; 81003; 87040; 87635; 76705; 47562; G0378 ×3; J2543 ×3; J2250; J2060 ×2; J2270; J1200; J3411; J2405 ×3; J0696; J3010; J1170 ×4; J1885; J0330; J2704; J1644 ×3

== ENCOUNTER 2022-01-09 07:01 | Emergency (ER) | payer MEDICARE ==
[2022-01-09 07:04] VITALS: TEMP 97.7
[2022-01-09] MEDS ORDERED: MORPHINE SULFATE 4 MG/ML SYRINGE IV STA (07:25)
[2022-01-09] MEDS ORDERED: LIDOCAINE 5% PATCH TOPICAL STA (07:25)
[2022-01-09] MEDS ORDERED: SODIUM CHLORIDE 0.9% 1,000 ML IV STA (07:25)
[2022-01-09] MEDS ORDERED: KETOROLAC 15 MG/ML 1 ML VIAL IVP STA (07:25)
--- NOTE | 2022-01-09 07:31 | ED ---
General Adult HPI - General Chief complaint: Chest Pain Stated complaint: Chest pain Time Seen by Provider: 01/09/22 07:05 Source: patient, family Mode of arrival: ambulatory Limitations: no limitations - History of Present Illness Initial comments: Dictation was produced using [employer] dictation software. please excuse any grammatical, word or spelling errors. Chief Complaint: 56-year-old male presents to the emergency department for 1 month of chest pain, diarrhea History of Present Illness: This 56-year-old male who states that he has past medical history of asthma. He smokes marijuana and drink alcohol daily. He is here to emergency department for left anterior chest pain. He states that right above his ribs. [place] when he takes a deep breath especially severe when he coughs. He smokes marijuana which causes him to cough. Whenever he coughs he feels an intense sharp pain. Patient states she's had this pain ongoing for a month. States that he is also having associated one month of diarrhea. He does feel some nausea. Denies any constitutional symptoms. Patient denies any abdominal pain. The ROS documented in this emergency department record has been reviewed and confirmed by me. Those systems with pertinent positive or negative responses have been documented in the HPI. All other systems are other negative and/or noncontributory. PHYSICAL EXAM: General Impression: Alert and oriented x3, not in acute distress HEENT: Normocephalic atraumatic, extra-ocular movements intact, pupils equal and reactive to light bilaterally, mucous membranes moist. Cardiovascular: Heart regular rate and rhythm Chest: Able to complete full sentences, no retractions, no tachypnea, reproducible operatory chest pain over his left costochondral junction at approximately the ninth rib joint Abdomen: abdomen soft, non-tender, non-distended, no organomegaly Musculoskeletal: Pulses present and equal in all extremities, no peripheral edema Motor: no focal deficits noted Neurological: CN II-XII grossly intact, no focal motor or sensory deficits noted Skin: Intact with no visualized rashes Psych: Normal affect and mood ED course: 56-year-old male presents to the emergency department clinical presentation consistent with musculoskeletal chest pain. States he also has associated one month of diarrhea and nausea. Vital signs upon arrival shows heart rate 111, rest of vital signs within acceptable limits. EKG shows heart rate of 78.Laboratory evaluation obtained. CBC, metabolic panel is unremarkable. Serum alcohol is 48. Chest x-ray shows no acute processes. Patient given analgesics observed in emergency department. Patient reevaluated 8:30 AM. Patient stable medical condition. Patient agreeable for discharge. He appears to be well with slight improvement of symptoms. Patient encouraged to follow up with his primary care doctor. He is given referral to another primary care doctor's that he may be interested in. Patient also encouraged to look into be admitted to [facility] for alcohol detoxification. Patient given starter pack for oral analgesics. EKG interpretation: Ventricular rate 70, sinus rhythm,. 152, care is 135, QTc 454. No NE prolongation, no QTC prolongation, no ST or T-wave changes noted. EKG compared to 03/22/2021 showing no changes. Overall, this EKG is unrem arkable - Related Data Previous Rx's Medication Instructions Recorded HYDROcodone/APAP 5-325MG [[place] 1 tab PO Q6HR PRN 3 Days #12 tab 07/30/21 5-325] Allergies Allergy/AdvReac Type Severity Reaction Status Date / Time celecoxib [From Celebrex] Allergy Rash/Hives Verified 01/09/22 07:04 Review of Systems ROS Statement: Those systems with pertinent positive or pertinent negative responses have been documented in the HPI. ROS Other: All systems not noted in ROS Statement are negative. Past Medical History Past Medical History: Asthma Additional Past Medical History / Comment(s): chronic back pain History of Any Multi-Drug Resistant Organisms: None Reported Past Surgical History: Back Surgery, Orthopedic Surgery Additional Past Surgical History / Comment(s): shoulders, femur Past Anesthesia/Blood Transfusion Reactions: No Reported Reaction Past Psychological History: Depression Smoking Status: Never smoker Past Alcohol Use History: Abuse, Daily Past Drug Use History: Marijuana - Past Family History Father Family Medical History: Cancer Additional Family Medical History / Comment(s): Father from metastatic cancer/lung cancer Mother Family Medical History: Renal Disease Additional Family Medical History / Comment(s): Mother was on dialysis. She is . General Exam Limitations: no limitations Course Vital Signs 01/09/22 07:01 Temperature 97.7 F Pulse Rate 111 H Respiratory 22 Rate O2 Sat by Pulse 99 Oximetry Medical Decision Making - Lab Data Result diagrams: 01/09/22 07:35 01/09/22 07:35 Lab Results 01/09/22 01/09/22 Range/Units 07:35 07:35 WBC 5.1 (3.8-10.6) k/uL RBC 4.73 (4.30-5.90) m/uL Hgb 15.5 (13.0-17.5) gm/dL Hct 47.6 (39.0-53.0) % MCV 100.7 H (80.0-100.0) fL MCH 32.8 (25.0-35.0) pg MCHC 32.6 (31.0-37.0) g/dL RDW 12.9 (11.5-15.5) % Plt Count 378 (150-450) k/uL MPV 6.9 Neutrophils % 60 % Lymphocytes % 26 % Monocytes % 7 % Eosinophils % 2 % Basophils % 2 % Neutrophils # 3.1 (1.3-7.7) k/uL Lymphocytes # 1.3 (1.0-4.8) k/uL Monocytes # 0.3 (0-1.0) k/uL Eosinophils # 0.1 (0-0.7) k/uL Basophils # 0.1 (0-0.2) k/uL Sodium 138 (137-145) mmol/L Potassium 4.3 (3.5-5.1) mmol/L Chloride 105 (98-107) mmol/L Carbon Dioxide 23 (22-30) mmol/L Anion Gap 10 mmol/L BUN 12 (9-20) mg/dL Creatinine 0.85 (0.66-1.25) mg/dL Est GFR (CKD-EPI)AfAm >90 (>60 ml/min/1.73 sqM) Est GFR (CKD-EPI)NonAf >90 (>60 ml/min/1.73 sqM) Glucose 141 H (74-99) mg/dL Calcium 8.8 (8.4-10.2) mg/dL Magnesium 2.1 (1.6-2.3) mg/dL Serum Alcohol 48 mg/dL Disposition Clinical Impression: Chronic alcohol abuse, Costochondritis Disposition: HOME SELF-CARE Condition: Fair Instructions (If sedation given, give patient instructions): Costochondritis (ED) Additional Instructions: Please consider being admitted to [facility] detox facility Is patient prescribed a controlled substance at d/c from ED?: No Referrals: Charline Galloway MD [REFERRING] - 1-2 days Meghan Euceda MD [STAFF PHYSICIAN] - 1-2 days
[2022-01-09] MEDS ORDERED: ONDANSETRON 4 MG/2 ML VIAL IVP STA (07:35)
[2022-01-09 07:42] LABS: Basophils # (A) 0.1 k/uL (0-0.2); Basophils % (A) 2 %; Eosinophils # (A) 0.1 k/uL (0-0.7); Eosinophils % (A) 2 %; HCT 47.6 % (39.0-53.0); HGB 15.5 gm/dL (13.0-17.5); Lymphocytes # (A) 1.3 k/uL (1.0-4.8); Lymphocytes % (A) 26 %; MCH 32.8 pg (25.0-35.0); MCHC 32.6 g/dL (31.0-37.0); MCV 100.7 fL (80.0-100.0); Mean Platelet Volume 6.9; Monocytes # (A) 0.3 k/uL (0-1.0); Monocytes % (A) 7 %; Neutrophils # (A) 3.1 k/uL (1.3-7.7); Neutrophils % (A) 60 %; Platelet Count 378 k/uL (150-450); RBC 4.73 m/uL (4.30-5.90); RDW 12.9 % (11.5-15.5); WBC 5.1 k/uL (3.8-10.6)
[2022-01-09 07:56] LABS: African American GFR (CKD) >90 (>60 ml/min/1.73 sqM); Alcohol 48 mg/dL; Anion Gap 10 mmol/L; Blood Urea Nitrogen 12 mg/dL (9-20); Calcium 8.8 mg/dL (8.4-10.2); Carbon Dioxide 23 mmol/L (22-30); Chloride 105 mmol/L (98-107); Glucose 141 mg/dL (74-99); Magnesium 2.1 mg/dL (1.6-2.3); Non-African American GFR(CKD) >90 (>60 ml/min/1.73 sqM); Potassium 4.3 mmol/L (3.5-5.1); Sodium 138 mmol/L (137-145)
--- NOTE | 2022-01-09 08:06 | XR ---
EXAMINATION TYPE: XR chest 2V DATE OF EXAM: 01/09/2022 7:42 AM COMPARISON:Multiple radiographs, with the most recent on 03/22/2021 TECHNIQUE: XR chest 2V Frontal and lateral views of the chest. CLINICAL INDICATION:Male, 56 years old with history of costochondritis; FINDINGS: Lungs/Pleura: There is no evidence of pleural effusion, focal consolidation, or pneumothorax. Pulmonary vascularity: Unremarkable. Heart/mediastinum: Cardiomediastinal silhouette is unremarkable. Musculoskeletal: No acute osseous pathology. IMPRESSION: No acute cardiopulmonary disease/process.
[2022-01-09] MEDS ORDERED: ACET/COD 300 MG/30 MG STARTER PACK 6 TAB BTL PO STA (08:35)
[2022-01-09 08:41] VITALS: BP 154/89; PULSE 78; RESP 16
== END 2022-01-09 08:47 | disposition home or self-care (01) ==
LOC: EC 07:01
DX: M94.0 Chondrocostal junction syndrome [Tietze] (principal); F10.10 Alcohol abuse, uncomplicated; Z88.6 Allergy status to analgesic agent; J45.909 Unspecified asthma, uncomplicated
CPT/HCPCS: 99285; 96374; 96375; 96361; 36415; 93005; 80048; 83735; 85025; 71046; G0480; J2270; J2405; J1885; 80320

== ENCOUNTER 2022-07-08 14:09 | Emergency (ER) | payer OTHER, MEDICARE ==
[2022-07-08 14:24] VITALS: TEMP 98.4
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
[2022-07-08 16:02] VITALS: BP 127/85; PULSE 88; RESP 17
== END 2022-07-08 16:02 | disposition home or self-care (01) ==
LOC: EC 14:09
DX: Z04.1 Encounter for examination and observation following transport accident (principal); F10.129 Alcohol abuse with intoxication, unspecified; J45.909 Unspecified asthma, uncomplicated; Z88.6 Allergy status to analgesic agent; V47.5XXA Car driver injured in collision with fixed or stationary object in traffic accident, initial encounter
CPT/HCPCS: 70450; 72125; 99284

== ENCOUNTER 2022-10-16 19:27 | Inpatient (IN) | payer MEDICARE ==
--- NOTE | 2022-10-16 20:36 | XR ---
EXAMINATION TYPE: XR chest 2V DATE OF EXAM: 10/16/2022 COMPARISON: 01/09/2022 HISTORY: Alcohol intoxication Chest pain TECHNIQUE: 2 views FINDINGS: Heart and mediastinum are normal. Lungs are clear. Diaphragm is normal. Bony thorax is inta ct. IMPRESSION: Normal chest. No change.
[2022-10-16] MEDS ORDERED: SODIUM CHLORIDE 0.9% 1,000 ML IV STA ×3 (20:56→22:22)
[2022-10-16] MEDS ORDERED: LORazepam 2 MG/ML INJ IV STA (20:56)
[2022-10-16] MEDS ORDERED: HYDROmorphone 1 MG/ML 1 ML SYRINGE IVP STA ×2 (20:57→22:09)
[2022-10-16 21:40] LABS: ALT 52 U/L (4-49); AST 116 U/L (17-59); African American GFR (CKD) >90 (>60 ml/min/1.73 sqM); Albumin 4.5 g/dL (3.5-5.0); Alkaline Phosphatase 109 U/L (38-126); Anion Gap 11 mmol/L; Blood Urea Nitrogen 11 mg/dL (9-20); Calcium 8.7 mg/dL (8.4-10.2); Carbon Dioxide 26 mmol/L (22-30); Chloride 103 mmol/L (98-107); Creatine Kinase 207 U/L (55-170); Glucose 132 mg/dL (74-99); Lipase 137 U/L (23-300); Magnesium 2.4 mg/dL (1.6-2.3); Non-African American GFR(CKD) >90 (>60 ml/min/1.73 sqM); Sodium 140 mmol/L (137-145); Total Protein 7.4 g/dL (6.3-8.2)
[2022-10-16 21:44] LABS: Basophils # (A) 0.1 k/uL (0-0.2); Basophils % (A) 2 %; Eosinophils # (A) 0.1 k/uL (0-0.7); Eosinophils % (A) 1 %; HCT 51.4 % (39.0-53.0); HGB 18.6 gm/dL (13.0-17.5); Lymphocytes % (A) 19 %; MCH 35.2 pg (25.0-35.0); MCHC 36.3 g/dL (31.0-37.0); MCV 97.1 fL (80.0-100.0); Mean Platelet Volume 8.5; Monocytes # (A) 0.5 k/uL (0-1.0); Monocytes % (A) 9 %; Neutrophils # (A) 3.5 k/uL (1.3-7.7); Neutrophils % (A) 67 %; Platelet Count 203 k/uL (150-450); RBC 5.29 m/uL (4.30-5.90); RDW 12.1 % (11.5-15.5); WBC 5.2 k/uL (3.8-10.6)
[2022-10-16 21:59] LABS: Alcohol 283 mg/dL
--- NOTE | 2022-10-16 22:06 | XR ---
EXAMINATION TYPE: XR KUB DATE OF EXAM: 10/16/2022 COMPARISON: NONE 2 views HISTORY: Abdominal pain TECHNIQUE: 2 views of right FINDINGS: There is no sign of intestinal obstruction or pneumoperitoneum. Fecal pattern is normal. No evidence of a mass. IMPRESSION: Nonacute abdomen.
[2022-10-16 22:23] LABS: INR 1.2 (<1.2); Prothrombin Time 12.6 sec (9.0-12.0)
--- NOTE | 2022-10-16 22:50 | ED ---
Alcohol HPI - General Chief Complaint: Alcohol Stated Complaint: alcohol Poisoning Time Seen by Provider: 10/16/22 20:06 Source: patient, family, RN notes reviewed Mode of arrival: ambulatory Limitations: no limitations - History of Present Illness Initial Comments: 57-year-old male with a history of alcoholism who states he drinks a fifth of whiskey every day plus about 6 beers he's been doing this for several years who is here with his daughters today stating that he wants to get off the alcohol he also states he was somewhat off balance today and also has some abdominal pain he's had decreased oral intake over last several days with markedly diminished urine output he states. He also states he has some generalized abdominal pain. No overt nausea vomiting or other symptoms at this time. He was noted have an elevated temperature upon arrival here though he has had no signs of infectious diseases he states. MD Complaint: alcohol intoxication, alcohol dependence, desires rehab - Related Data Previous Rx's Medication Instructions Recorded HYDROcodone/APAP 5-325MG [[place] 1 tab PO Q6HR PRN 3 Days #12 tab 07/30/21 5-325] Allergies Allergy/AdvReac Type Severity Reaction Status Date / Time celecoxib [From Celebrex] Allergy Rash/Hives Verified 10/16/22 19:34 Review of Systems ROS Statement: Those systems with pertinent positive or pertinent negative responses have been documented in the HPI. ROS Other: All systems not noted in ROS Statement are negative. Past Medical History Past Medical History: Asthma, Hyperlipidemia Additional Past Medical History / Comment(s): chronic back pain History of Any Multi-Drug Resistant Organisms: None Reported Past Surgical History: Back Surgery, Orthopedic Surgery Additional Past Surgical History / Comment(s): shoulders, femur Past Anesthesia/Blood Transfusion Reactions: No Reported Reaction Past Psychological History: Depression Smoking Status: Never smoker Past Alcohol Use History: Abuse, Daily, Heavy Past Drug Use History: Marijuana - Past Family History Father Family Medical History: Cancer Additional Family Medical History / Comment(s): Father from metastatic cancer/lung cancer Mother Family Medical History: Renal Disease Additional Family Medical History / Comment(s): Mother was on dialysis. She is . General Exam - General Exam Comments Initial Comments: This is a well-developed well-nourished awake alert oriented 4 male he does have the smell of alcohol conjoiners on his breath Limitations: no limitations General appearance: alert, in no apparent distress Head exam: Present: atraumatic, normocephalic, normal inspection Eye exam: Present: normal appearance, PERRL, EOMI. Absent: scleral icterus, conjunctival injection, periorbital swelling ENT exam: Present: mucous membranes dry Neck exam: Present: normal inspection, full ROM, other (bruits). Absent: ten derness, meningismus, lymphadenopathy Respiratory exam: Present: normal lung sounds bilaterally. Absent: respiratory distress, wheezes, rales, rhonchi, stridor Cardiovascular Exam: Present: normal rhythm, tachycardia, normal heart sounds. Absent: systolic murmur, diastolic murmur, rubs, gallop, clicks GI/Abdominal exam: Present: soft, tenderness, normal bowel sounds. Absent: distended, guarding, rebound, rigid, bruit, pulsatile mass Extremities exam: Present: normal inspection, full ROM, normal capillary refill. Absent: tenderness, pedal edema, joint swelling, calf tenderness Back exam: Present: normal inspection Neurological exam: Present: alert, oriented X3, CN II-XII intact Psychiatric exam: Present: normal affect, normal mood Skin exam: Present: warm, dry, intact, normal color. Absent: rash Course Vital Signs 10/16/22 19:32 Temperature 100.8 F H Pulse Rate 110 H Respiratory 20 Rate Blood Pressure 150/100 O2 Sat by Pulse 94 L Oximetry Medical Decision Making - Medical Decision Making Discuss [employer] the patient family patient does demonstrate evidence of alcohol intoxication with impending withdrawal patient does have evidence of dehydration swabs are pending at this time and did discuss case with Dr. Perez who is going to see the patient in the emergency department. Was pt. sent in by a medical professional or institution? @ No-[by , PA, SPANISH INSTRUCTOR, urgent care, hospital, or [facility]] Did you speak to anyone other than the patient for history? @ No -[EMS, parent, family, police, friend?] Did you review nursing and triage notes? @ S agree -[agree or disagree, why?] Were old charts reviewed? @ No -[outside hosp., previous admissions, EMS record, old EKG, old radiological studies, urgent care reports/EKGs, [facility] records?] Differential Diagnosis? @ Alcohol Intoxication, abdominal pain-[chest pain, altered mental status abdominal pain women, abdominal pain men, vaginal bleeding, weakness, fever, dyspnea, syncope, headache, dizziness, GI bleed, back pain, seizure] EKG interpreted by me (3pts min.)? @ SS-[none] X-rays interpreted by me (1pt min.)? @ -[none] CT interpreted by me (1pt min.)? @ Yes-[none] U/S interpreted by me (1pt. min.)? @ -[none] What testing was considered but not performed? (CT, X-rays, U/S, labs)? Why? @ [CT, X-rays, U/S, labs? Why?] What meds were considered but not given? Why? @ -[none] Did you discuss the management of the patient with other professionals? @ -[professionals i.e. Dr, PA, SPANISH INSTRUCTOR, Lab, RT, Psych Nurse, Senior Assistant Manager, Fire Manager, Teacher, Enterprise Integration Architect, manager of case management? Give summary] Did you reconcile home meds? @ -[none] Was smoking cessation discussed for >3mins.? @ -[none] Was critical care preformed (if so, how long)? @ -[none] Were there social determinants of health that impacted care today? How? (Ayaan elessness, low income, unemployed, alcoholism, drug addiction, transportation, low edu. Level, literacy, decrease access to med. care, custodial, rehab)? @ -[Homelessness, low income, unemployed, alcoholism, drug addiction, transportation, low edu. Level, literacy, decrease access to med. care, custodial, rehab?] Was there de-escalation of care discussed even if they declined? (Discuss DNR or withdrawal of care, Hospice)? @ -[Discuss DNR or withdrawal of care, Hospice?] What co-morbidities impacted this encounter? (DM, HTN, Smoking, COPD, CAD, Cancer, CVA, Hep., AIDS, mental health diagnosis, sleep apnea, morbid obesity)? @ -[DM, HTN, Smoking, COPD, CAD, Cancer, CVA, Hep., AIDS, mental health diagnosis, sleep apnea, morbid obesity?] Was patient admitted / discharged? @ Admitted-[hospital course] Undiagnosed new problem with uncertain prognosis? @ -[none] Drug Therapy requiring intensive monitoring for toxicity (Heparin, Nitro, Insulin, Cardizem)? @ -[none] Were any procedures done? @ -[none] Diagnosis/symptom? @ Alcohol intoxication, impending alcohol withdrawal alcohol dependence abdominal pain dehydration lactic acidosis-[default] Acute, or Chronic, or Acute on Chronic? @ -[default] Uncomplicated (without systemic symptoms) or Complicated (systemic symptoms)? @ -[default] Side effects of treatment? @ -[none] Exacerbation, Progression, or Severe Exacerbation] @ -[no] Poses a threat to life or bodily function? @ -[no] - Lab Data Result diagrams: 10/16/22 20:53 10/16/22 20:53 Lab Results 10/16/22 10/16/22 10/16/22 Range/Units 20:53 20:53 20:53 WBC 5.2 (3.8-10.6) k/uL RBC 5.29 (4.30-5.90) m/uL Hgb 18.6 H (13.0-17.5) gm/dL Hct 51.4 (39.0-53.0) % MCV 97.1 (80.0-100.0) fL MCH 35.2 H (25.0-35.0) pg MCHC 36.3 (31.0-37.0) g/dL RDW 12.1 (11.5-15.5) % Plt Count 203 (150-450) k/uL MPV 8.5 Neutrophils % 67 % Lymphocytes % 19 % Monocytes % 9 % Eosinophils % 1 % Basophils % 2 % Neutrophils # 3.5 (1.3-7.7) k/uL Lymphocytes # 1.0 (1.0-4.8) k/uL Monocytes # 0.5 (0-1.0) k/uL Eosinophils # 0.1 (0-0.7) k/uL Basophils # 0.1 (0-0.2) k/uL PT 12.6 H (9.0-12.0) sec INR 1.2 H (<1.2) Sodium 140 (137-145) mmol/L Potassium 4.0 (3.5-5.1) mmol/L Chloride 103 (98-107) mmol/L Carbon Dioxide 26 (22-30) mmol/L Anion Gap 11 mmol/L BUN 11 (9-20) mg/dL Creatinine 0.87 (0.66-1.25) mg/dL Est GFR (CKD-EPI)AfAm >90 (>60 ml/min/1.73 sqM) Est GFR (CKD-EPI)NonAf >90 (>60 ml/min/1.73 sqM) Glucose 132 H (74-99) mg/dL Plasma Lactic Acid Carlos (0.7-2.0) mmol/L Calcium 8.7 (8.4-10.2) mg/dL Magnesium 2.4 H (1.6-2.3) mg/dL Total Bilirubin 1.0 (0.2-1.3) mg/dL AST 116 H (17-59) U/L ALT 52 H (4-49) U/L Alkaline Phosphatase 109 (38-126) U/L Creatine Kinase 207 H (55-170) U/L Troponin I (0.000-0.034) ng/mL Total Protein 7.4 (6.3-8.2) g/dL Albumin 4.5 (3.5-5.0) g/dL Lipase 137 (23-300) U/L Serum Alcohol 283 H* mg/dL 10/16/22 10/16/22 Range/Units 20:53 20:53 WBC (3.8-10.6) k/uL RBC (4.30-5.90) m/uL Hgb (13.0-17.5) gm/dL Hct (39.0-53.0) % MCV (80.0-100.0) fL MCH (25.0-35.0) pg MCHC (31.0-37.0) g/dL RDW (11.5-15.5) % Plt Count (150-450) k/uL MPV Neutrophils % % Lymphocytes % % Monocytes % % Eosinophils % % Basophils % % Neutrophils # (1.3-7.7) k/uL Lymphocytes # (1.0-4.8) k/uL Monocytes # (0-1.0) k/uL Eosinophils # (0-0.7) k/uL Basophils # (0-0.2) k/uL PT (9.0-12.0) sec INR (<1.2) Sodium (137-145) mmol/L Potassium (3.5-5.1) mmol/L Chloride (98-107) mmol/L Carbon Dioxide (22-30) mmol/L Anion Gap mmol/L BUN (9-20) mg/dL Creatinine (0.66-1.25) mg/dL Est GFR (CKD-EPI)AfAm (>60 ml/min/1.73 sqM) Est GFR (CKD-EPI)NonAf (>60 ml/min/1.73 sqM) Glucose (74-99) mg/dL Plasma Lactic Acid Carlos 4.2 H* (0.7-2.0) mmol/L Calcium (8.4-10.2) mg/dL Magnesium (1.6-2.3) mg/dL Total Bilirubin (0.2-1.3) mg/dL AST (17-59) U/L ALT (4-49) U/L Alkaline Phosphatase (38-126) U/L Creatine Kinase (55-170) U/L Troponin I <0.012 (0.000-0.034) ng/mL Total Protein (6.3-8.2) g/dL Albumin (3.5-5.0) g/dL Lipase (23-300) U/L Serum Alcohol mg/dL - EKG Data -: EKG Interpreted by Me EKG Comments: EKG read by me sinus rhythm a 98 ME interval 142 QRS duration 136 QT since QTC 360/424 evidence a right bundle-branch block no acute ST-T wave changes some artifact present - Radiology Data Interpreted by me: I did evaluate the imaging no evidence of acute findings thus far. X-ray and CT interpreted by me Disposition Clinical Impression: Alcoholic intoxication, Alcoholic gastritis, Alcohol withdrawal delirium Disposition: ADMITTED IP TO THIS [facility] Condition: Fair Referrals: None,Stated [Primary Care Provider] - 1-2 days Decision Date: 10/16/22 Decision Time: 23:47
[2022-10-16] MEDS ORDERED: THIAMINE 100 MG/ML 2 ML VIAL IM STA (23:10)
[2022-10-16] MEDS ORDERED: LORazepam 2 MG/ML INJ IV PRN (23:10)
--- NOTE | 2022-10-16 23:16 | CT ---
EXAMINATION TYPE: CT brain wo con DATE OF EXAM: 10/16/2022 COMPARISON: 07/08/2022 HISTORY: etoh Headache CT DLP: 1200.4 mGycm Automated exposure control for dose reduction was used. Images of the brain obtained with no contrast. Ventricles have normal size. There is no mass effect or midline shift. No sign of intracranial hemorr emerson. Calvarium is intact IMPRESSION: Negative unenhanced head CT scan. No change.
--- NOTE | 2022-10-16 23:33 | CT ---
EXAMINATION TYPE: CT abdomen pelvis wo con DATE OF EXAM: 10/16/2022 COMPARISON: None HISTORY: abd pain CT DLP: 1189.4 mGycm Automated exposure control for dose reduction was used. Images obtained from the diaphragm to the floor the pelvis without contrast. The lung bases are clear. No pleural effusion. Heart size is normal. No pericardial effusion. Liver i s intact. There are clips from cholecystectomy. There is no pancreatic mass. Spleen is intact. The st omach is intact. There is no adrenal mass. Kidneys have normal size and contour. No hydronephrosis. Ureters are not di lated. Appendix is medial and inferior and appears normal. Bladder distends smoothly. No inguinal her luli. No free fluid in the pelvis. No pelvic mass. There is no mesenteric edema. No ascites or free air. No sign of a bowel obstruction. The lumbar vertebrae have normal alignment. No compression fracture. Bony pelvis is intact. There is L3-4 disc space narrowing and spur formation. The bony pelvis is intact. The hip joints are intact. There is acetabular spur formation at the right hip. There is spurring on the right femoral head. There is no intestinal wall thickening. IMPRESSION: Normal appendix. No acute abnormality of the abdomen and pelvis.
[2022-10-16] MEDS ORDERED: KETOROLAC 15 MG/ML 1 ML VIAL IVP STA (23:42)
[2022-10-16] MEDS ORDERED: HYDROmorphone 1 MG/ML 1 ML SYRINGE IVP PRN (23:47)
[2022-10-16] MEDS ORDERED: NALOXONE 0.4 MG/ML 1 ML VIAL IV PRN (23:47)
[2022-10-17] MEDS ORDERED: MORPHINE SULFATE 2 MG/ML SYRINGE IVP STA (00:17)
[2022-10-17] MEDS: SODIUM CHLORIDE 0.9% 1,000 ML IV SCH ×4 (00:55→20:35)
--- NOTE | 2022-10-17 01:38 | P.HPIM ---
History of Present Illness H&P Date: 10/16/22 The patient is a 57-year-old male with a PMH of EtOH abuse and chronic lower back pain who presents to the emergency room with complaints of alcohol intoxication and abdominal pain. The patient reports that he has been taking heavily over the past 1 year, roughly about fifth of rum daily. States that he now wishes to quit and upon the insistence of his daughters, he decided to come to the emergency room and seek help. He reports chronic lower back pain as well as abdominal pain at the time of interview, 8 out of 10, nonradiating, with no alleviating or exacerbating features. Laboratory evaluation was reviewed and was remarkable for serum alcohol level of 283, lactic acid 4.2, AST 116, ALT 52, troponin less than 0.012, with hemoglobin 18.6. The patient was febrile upon presentation to the emergency room with T-max 100.8F, pulse 110, and SpO2 94% on room air with BP 150/100. CT abdomen and pelvis was unremarkable with CT brain also unremarkable. EKG revealed sinus rhythm at 98 bpm with a right bundle branch block as reviewed by me. Chest x-ray was unremarkable. Review of systems: Pertinent positives and negatives as discussed in HPI, a complete review of systems was performed and all other systems are negative. Physical examination: General: non toxic, no distress, appears at stated age, normal weight Derm: no unusual rashes/lesions, warm Head: atraumatic, normocephalic, symmetric Eyes: EOMI, no lid lag, anicteric sclera, pupils equal round reactive to light ENT: Nose and ears atraumatic Neck: No cervical lymphadenopathy, trachea midline, supple Mouth: no lip lesion, mucus membranes moist Cardiovascular: S1S2 reg, no murmur, positive dorsalis pedis pulse bilateral, no edema Lungs: CTA bilateral, no rhonchi, no rales, no accessory muscle use Abdominal: soft, diffuse mild tenderness, no guarding Ext: muscle strength 5 out of 5 in all 4 extremities grossly, no gross muscle atrophy, no contractures, Neuro: CN II-XI grossly intact, no gross focal neuro deficits Psych: Alert, oriented, appropriate affect Assessment/plan Alcohol intoxication -[facility] Protocol -IV fluids -Thiamine -Fall precautions -Monitor electrolytes -Strongly advised on the importance of cessation Lactic acidosis -Monitor for resolution -IV fluids SIRS without obvious etiology -No obvious source of infection at this time -Monitor for now DVT prophylaxis -Heparin subq The patient is admitted with an anticipated less than 2 midnight stay for evaluation of EtOH abuse CODE STATUS: Full Code Discussed with: Patient Anticipated discharge date: in am Anticipated discharge place: Home Past Medical History Past Medical History: Asthma, Hyperlipidemia Additional Past Medical History / Comment(s): chronic back pain History of Any Multi-Drug Resistant Organisms: None Reported Past Surgical History: Back Surgery, Orthopedic Surgery Additional Past Surgical History / Comment(s): shoulders, femur Past Anesthesia/Blood Transfusion Reactions: No Reported Reaction Past Psychological History: Depression Smoking Status: Never smoker Past Alcohol Use History: Abuse, Daily, Heavy Past Drug Use History: Marijuana - Past Family History Father Family Medical History: Cancer Additional Family Medical History / Comment(s): Father from metastatic cancer/lung cancer Mother Family Medical History: Renal Disease Additional Family Medical History / Comment(s): Mother was on dialysis. She is . Medications and Allergies Home Medications Medication Instructions Recorded Confirmed Type HYDROcodone/APAP 5-325MG [[place] 1 tab PO Q6HR PRN 3 Days #12 tab 07/30/21 Rx 5-325] Allergies Allergy/AdvReac Type Severity Reaction Status Date / Time celecoxib [From Celebrex] Allergy Rash/Hives Verified 10/16/22 19:34 Physical Exam Vitals: Vital Signs Temp Pulse Resp BP Pulse Ox 10/16/22 23:00 87 16 145/96 100 10/16/22 22:00 88 16 154/98 100 10/16/22 19:32 100.8 F H 110 H 20 150/100 94 L Intake and Output 10/16/22 10/16/22 10/17/22 14:59 22:59 06:59 Other: Weight 99.79 kg Results CBC & Chem 7: 10/16/22 20:53 10/16/22 20:53 Labs: Abnormal Lab Results - Last 24 Hours (Table) 10/16/22 10/16/22 10/16/22 Range/Units 20:53 20:53 20:53 Hgb 18.6 H (13.0-17.5) gm/dL MCH 35.2 H (25.0-35.0) pg PT 12.6 H (9.0-12.0) sec INR 1.2 H (<1.2) Glucose 132 H (74-99) mg/dL Plasma Lactic Acid Carlos (0.7-2.0) mmol/L Magnesium 2.4 H (1.6-2.3) mg/dL AST 116 H (17-59) U/L ALT 52 H (4-49) U/L Creatine Kinase 207 H (55-170) U/L Serum Alcohol 283 H* mg/dL 10/16/22 Range/Units 20:53 Hgb (13.0-17.5) gm/dL MCH (25.0-35.0) pg PT (9.0-12.0) sec INR (<1.2) Glucose (74-99) mg/dL Plasma Lactic Acid Carlos 4.2 H* (0.7-2.0) mmol/L Magnesium (1.6-2.3) mg/dL AST (17-59) U/L ALT (4-49) U/L Creatine Kinase (55-170) U/L Serum Alcohol mg/dL
[2022-10-17 03:57] LABS: Cocaine Screen,Urine Not Detected (NotDetected); Opiate Screen,Urine Detected (NotDetected); Phencyclidine Screen,Urine Not Detected (NotDetected); Urn Cannabinoid Scrn Detected (NotDetected)
[2022-10-17 03:58] LABS: Amphetamine Screen,Urine Not Detected (NotDetected); Barbiturate Screen,Urine Not Detected (NotDetected); Benzodiazepines Screen,Urine Detected (NotDetected); Methadone Screen, Urine Not Detected (NotDetected); Oxycodone Screen, Urine Not Detected (NotDetected); Tricyclic Antidepressant,Urine Not Detected (NotDetected)
[2022-10-17] MEDS: ONDANSETRON 4 MG/2 ML VIAL IVP PRN ×3 (05:53→20:22)
[2022-10-17] MEDS ORDERED: LORazepam 1 MG TAB PO PRN ×3 (09:03)
[2022-10-17] MEDS ORDERED: LORazepam 0.5 MG TAB PO PRN (09:03)
[2022-10-17] MEDS: PANTOPRAZOLE 40 MG/10 ML VIAL IV SCH (11:31)
[2022-10-17] MEDS: HEPARIN SODIUM,PORCINE/PF 5,000 UNIT/0.5 ML SYRINGE SQ SCH ×3 (12:05→23:20)
[2022-10-17] MEDS: THIAMINE 100 MG TAB PO SCH (13:14)
[2022-10-17] MEDS ORDERED: chlordiazePOXIDE 25 MG CAP PO STA (13:33)
[2022-10-17] MEDS ORDERED: LORazepam 2 MG/ML INJ IV PRN ×2 (13:34)
[2022-10-17] MEDS: LORazepam 2 MG/ML INJ IV PRN ×2 (13:47→17:12)
[2022-10-17] MEDS ORDERED: ALBUTEROL NEBULIZED 2.5 MG/3 ML INHALATION PRN (16:07)
--- NOTE | 2022-10-17 16:08 | P.PN ---
Subjective Progress Note Date: 10/17/22 (Patient seen at 1330) The patient is a 57-year-old male with a PMH of EtOH abuse and chronic lower back pain who presents to the emergency room with complaints of alcohol intoxication and abdominal pain. Laboratory evaluation was reviewed and was remarkable for serum alcohol level of 283, lactic acid 4.2, AST 116, ALT 52, troponin less than 0.012, with hemoglobin 18.6. The patient was febrile upon presentation to the emergency room with T-max 100.8F, pulse 110, and SpO2 94% on room air with BP 150/100. CT abdomen and pelvis was unremarkable with CT brain also unremarkable. EKG revealed sinus rhythm at 98 bpm with a right bundle branch block as reviewed by me. Chest x-ray was unremarkable. Patient seen and examined at bedside. Daughters at bedside all questsions anwered. He reports that he is feeling nauseated and just over all not well, He has a mild headache, he appears to be somewhat restless. He states he was drinking a fifth and several beers daily and has been since the start of coping. General: ill appearing, mild distress, appears at stated age Derm: warm, diaphoretic Head: atraumatic, normocephalic, symmetric Eyes: EOMI, no lid lag, anicteric sclera Mouth: no lip lesion, mucus membranes moist Cardiovascular: S1S2 reg, no murmur, positive posterior tibial pulse bilateral, Lungs: CTA bilateral, no rhonchi, no rales , no accessory muscle use Abdominal: soft, nontender to palpation, no guarding, no appreciable organomegaly Ext: no gross muscle atrophy, no edema, no contractures Neuro: CN II-XI grossly intact, no focal neuro deficits, resting tremor, appears diaphoretic Psych: Alert, oriented, appropriate affect Assessment/plan Alcohol intoxication -CIWA Protocol -IV fluids -Thiamine -Fall precautions - add librium -Strongly advised on the importance of cessation Lactic acidosis -Monitor for resolution -IV fluids COPD with exacerbation - prn bronchodilators DVT prophylaxis -Heparin subq The patient is admitted with an anticipated less than 2 midnight stay for evaluation of EtOH abuse CODE STATUS: Full Code Discussed with: Patient Anticipated discharge date: in 2-[address]: Home Objective - Vital Signs Vital signs: Vital Signs Temp 98.8 F 10/17/22 08:21 Pulse 97 10/17/22 08:21 Resp 17 10/17/22 08:21 BP 166/51 10/17/22 08:21 Pulse Ox 98 10/17/22 08:21 FiO2 Intake & Output 10/16/22 10/17/22 10/17/22 18:59 06:59 18:59 Intake Total 236 Balance 236 Weight 99.79 kg Intake: Oral 236 Other: # Voids 1 - Labs CBC & Chem 7: 10/16/22 20:53 10/16/22 20:53 Labs: Abnormal Lab Results - Last 24 Hours (Table) 10/16/22 10/16/22 10/16/22 Range/Units 20:53 20:53 20:53 Hgb 18.6 H (13.0-17.5) gm/dL MCH 35.2 H (25.0-35.0) pg PT 12.6 H (9.0-12.0) sec INR 1.2 H (<1.2) Glucose 132 H (74-99) mg/dL Plasma Lactic Acid Carlos (0.7-2.0) mmol/L Magnesium 2.4 H (1.6-2.3) mg/dL AST 116 H (17-59) U/L ALT 52 H (4-49) U/L Creatine Kinase 207 H (55-170) U/L Urine Opiates Screen (NotDetected) U Benzodiazepines Scrn (NotDetected) U Marijuana (THC) Screen (NotDetected) Serum Alcohol 283 H* mg/dL 10/16/22 10/17/22 10/17/22 Range/Units 20:53 00:27 03:31 Hgb (13.0-17.5) gm/dL MCH (25.0-35.0) pg PT (9.0-12.0) sec INR (<1.2) Glucose (74-99) mg/dL Plasma Lactic Acid Carlos 4.2 H* 3.8 H* (0.7-2.0) mmol/L Magnesium (1.6-2.3) mg/dL AST (17-59) U/L ALT (4-49) U/L Creatine Kinase (55-170) U/L Urine Opiates Screen Detected H (NotDetected) U Benzodiazepines Scrn Detected H (NotDetected) U Marijuana (THC) Screen Detected H (NotDetected) Serum Alcohol mg/dL 10/17/22 Range/Units 04:11 Hgb (13.0-17.5) gm/dL MCH (25.0-35.0) pg PT (9.0-12.0) sec INR (<1.2) Glucose (74-99) mg/dL Plasma Lactic Acid Carlos 4.1 H* (0.7-2.0) mmol/L Magnesium (1.6-2.3) mg/dL AST (17-59) U/L ALT (4-49) U/L Creatine Kinase (55-170) U/L Urine Opiates Screen (NotDetected) U Benzodiazepines Scrn (NotDetected) U Marijuana (THC) Screen (NotDetected) Serum Alcohol mg/dL
[2022-10-17] MEDS: chlordiazePOXIDE 25 MG CAP PO SCH ×2 (17:13→21:04)
[2022-10-18] MEDS: ONDANSETRON 4 MG/2 ML VIAL IVP PRN ×2 (02:09→20:20)
[2022-10-18] MEDS: SODIUM CHLORIDE 0.9% 1,000 ML IV SCH (04:58)
[2022-10-18] MEDS: LORazepam 2 MG/ML INJ IV PRN ×4 (06:21→20:20)
[2022-10-18] MEDS: HEPARIN SODIUM,PORCINE/PF 5,000 UNIT/0.5 ML SYRINGE SQ SCH ×2 (07:45→15:34)
[2022-10-18] MEDS: PANTOPRAZOLE 40 MG/10 ML VIAL IV SCH (07:45)
[2022-10-18] MEDS: THIAMINE 100 MG TAB PO SCH (07:45)
[2022-10-18] MEDS: chlordiazePOXIDE 25 MG CAP PO SCH ×3 (07:45→22:30)
[2022-10-18] MEDS: PSYLLIUM HUSK 100% 6 GM PACKET PO SCH ×2 (10:34→20:19)
[2022-10-18] MEDS: diazePAM 5 MG TAB PO SCH ×3 (10:34→22:31)
[2022-10-18] MEDS: LACTATED RINGERS 1,000 ML IV SCH ×2 (10:34→15:35)
[2022-10-18 10:56] LABS: African American GFR (CKD) >90 (>60 ml/min/1.73 sqM); Anion Gap 7 mmol/L; Blood Urea Nitrogen 5 mg/dL (9-20); Calcium 8.3 mg/dL (8.4-10.2); Carbon Dioxide 26 mmol/L (22-30); Chloride 104 mmol/L (98-107); Glucose 131 mg/dL (74-99); Non-African American GFR(CKD) >90 (>60 ml/min/1.73 sqM); Potassium 3.7 mmol/L (3.5-5.1); Sodium 137 mmol/L (137-145)
[2022-10-18] MEDS: CALCIUM CARBONATE LIQUID 500 MG/5 ML CUP PO SCH ×2 (11:02→15:34)
[2022-10-18] MEDS: PANTOPRAZOLE 40 MG TABLET PO SCH (20:19)
--- NOTE | 2022-10-18 22:37 | P.PN ---
Progress Note - Text Progress Note Date: 10/18/22 Hospital course The patient is a 57-year-old male with a PMH of EtOH abuse and chronic lower back pain who presents to the emergency room with complaints of alcohol intoxication and abdominal pain. Laboratory evaluation was reviewed and was remarkable for serum alcohol level of 283, lactic acid 4.2, AST 116, ALT 52, troponin less than 0.012, with hemoglobin 18.6. The patient was febrile upon presentation to the emergency room with T-max 100.8F, pulse 110, and SpO2 94% on room air with BP 150/100. CT abdomen and pelvis was unremarkable with CT brain also unremarkable. EKG revealed sinus rhythm at 98 bpm with a right bundle branch block as reviewed by me. Chest x-ray was unremarkable. Patient seen and examined at bedside. Daughters at bedside all questsions anwered. He reports that he is feeling nauseated and just over all not well, He has a mild headache, he appears to be somewhat restless. He states he was drinking a fifth and several beers daily and has been since the start of coping. 10/18/2022: Assumed care of the patient today. Patient's disease had diarrhea for several years. Could be up to multiple times a day. Metamucil added. No abdominal pain. Patient on Librium.. Patient is having significant nausea. Vomiting. Change to full liquid diet. Had to be set up in a chair. Active Medications Albuterol Sulfate (Albuterol Nebulized 2.5 Mg/3 Ml) 2.5 mg INHALATION RT-QID PRN PRN Reason: Shortness Of Breath Or Wheezing Calcium Carbonate/Glycine (Calcium Carbonate Liquid 500 Mg/5 Ml Cup) 500 mg PO TID-W/MEALS [facility] Last Admin: 10/18/22 15:34 Dose: 500 mg Chlordiazepoxide HCl (Chlordiazepoxide 25 Mg Cap) 25 mg PO TID [facility] Last Admin: 10/18/22 15:34 Dose: 25 mg Heparin Sodium (Porcine) (Heparin Sodium,Porcine/Pf 5,000 Unit/0.5 Ml Syringe) 5,000 unit SQ Q8HR [facility] Last Admin: 10/18/22 15:34 Dose: 5,000 unit Lactated Ringer's (Lactated Ringers) 1,000 mls @ 125 mls/hr IV .Q8H [facility] Last Admin: 10/18/22 15:35 Dose: 125 mls/hr Lorazepam (Lorazepam 2 Mg/Ml Inj) 1 mg IV Q1HR PRN PRN Reason: CIWA 10 to 15 Last Admin: 10/18/22 02:22 Dose: 1 mg Lorazepam (Lorazepam 2 Mg/Ml Inj) 1 mg IV Q2HR PRN PRN Reason: CIWA 8 or 9 Last Admin: 10/18/22 20:20 Dose: 1 mg Lorazepam (Lorazepam 2 Mg/Ml Inj) 2 mg IV Q10M PRN PRN Reason: CIWA 16 or higher Stop: 10/19/22 13:34 Naloxone HCl (Naloxone 0.4 Mg/Ml 1 Ml Vial) 0.2 mg IV Q2M PRN PRN Reason: Opioid Reversal Ondansetron HCl (Ondansetron 4 Mg/2 Ml Vial) 4 mg IVP Q6HR PRN PRN Reason: Nausea And Vomiting Last Admin: 10/18/22 20:20 Dose: 4 mg Pantoprazole Sodium (Pantoprazole 40 Mg Tablet) 40 mg PO BID [facility] Last Admin: 10/18/22 20:19 Dose: 40 mg Psyllium Hydrophilic Mucilloid (Psyllium Husk 100% 6 Gm Packet) 6 gm PO BID [facility] Last Admin: 10/18/22 20:19 Dose: 6 gm Thiamine HCl (Thiamine 100 Mg Tab) 100 mg PO DAILY [facility] Last Admin: 10/18/22 07:45 Dose: 100 mg On examination: VITAL SIGNS: [98.5, 76, 16, 1 3787, 100% on room air] GENERAL APPEARANCE: BMI 34.5, sitting up in a chair, anxious HEENT: Normal external appearance of nose and ear. Oral cavity normal EYES: Pupils equal. Conjunctiva normal. NECK: JVD not raised. Mass not palpable. RESPIRATORY: Respiratory effort normal. Lungs clear to auscultation. CARDIOVASCULAR: First and second sounds normal. No edema. ABDOMEN: Soft. Liver and spleen not palpable. No tenderness. No mass palpable. PSYCHIATRY: Alert and oriented x3. Mood and affect anxious INVESTIGATIONS, reviewed in the clinical context: Potassium 3.7 BUN 5 creatinine 0.74 Urine drug screen positive for opiates, benzodiazepines, marijuana COVID-19/influenza type A/diabetes/: Not detected Serum alcohol [address] abdomen pelvis without contrast: Unremarkable Assessment and plan: -Acute alcohol intoxication on presentation -Alcohol use disorder CIWA scale. On Librium. -Alcohol withdrawal syndrome On Librium, CIWA scale -Chronic diarrhea with multiple bowel movements a day for years. Does report bleeding at times.: New diagnosis Add Metamucil. We'll consult GI even service available -Type II lactic acidosis in the setting of renal failure. No sepsis. -Persistent nausea vomiting likely from acute on chronic gastritis secondary to alcoholism: Not improving Protonix 40 mg twice a day. Liquid Tums. Full liquid diet. -Acute on chronic gastritis and alcoholism PPI -Clinical dehydration IV fluids -Recreational marijuana use Counseling -Intermittent asthma Albuterol when necessary -Obesity BMI 34.5 Weight loss measures outpatient Liquid Tums. Continue Librium. D5 saline. Metamucil. Protonix 40 mg by mouth twice a day. Stop morphine. Activity is started. Full liquid diet. Discussed with patient. And the nurse.
[2022-10-19] MEDS: LACTATED RINGERS 1,000 ML IV SCH ×3 (00:05→17:56)
[2022-10-19] MEDS: HEPARIN SODIUM,PORCINE/PF 5,000 UNIT/0.5 ML SYRINGE SQ SCH ×4 (00:39→22:03)
[2022-10-19] MEDS: DEXTROSE 5%-0.45% NACL 1,000 ML IV SCH ×2 (00:39→09:00)
[2022-10-19 06:21] LABS: Basophils # (A) 0.1 k/uL (0-0.2); Basophils % (A) 1 %; Eosinophils # (A) 0.1 k/uL (0-0.7); Eosinophils % (A) 2 %; HCT 42.2 % (39.0-53.0); Lymphocytes # (A) 0.9 k/uL (1.0-4.8); Lymphocytes % (A) 20 %; MCH 34.9 pg (25.0-35.0); MCHC 35.9 g/dL (31.0-37.0); MCV 97.3 fL (80.0-100.0); Mean Platelet Volume 7.7; Monocytes # (A) 0.4 k/uL (0-1.0); Monocytes % (A) 8 %; Neutrophils # (A) 2.9 k/uL (1.3-7.7); Neutrophils % (A) 66 %; Platelet Count 149 k/uL (150-450); RBC 4.33 m/uL (4.30-5.90); WBC 4.4 k/uL (3.8-10.6)
[2022-10-19 06:37] LABS: HGB 15.1 gm/dL (13.0-17.5)
[2022-10-19] MEDS ORDERED: PANTOPRAZOLE 40 MG TABLET PO SCH (07:30)
[2022-10-19] MEDS: ONDANSETRON 4 MG/2 ML VIAL IVP PRN (08:59)
[2022-10-19 09:20] LABS: INR 1.1 (0.90-1.11); Prothrombin Time 12.4 sec (9.9-11.9)
[2022-10-19] MEDS: CALCIUM CARBONATE LIQUID 500 MG/5 ML CUP PO SCH ×4 (09:56→22:05)
[2022-10-19] MEDS: PANTOPRAZOLE 40 MG TABLET PO SCH ×2 (09:57→20:18)
[2022-10-19] MEDS: PSYLLIUM HUSK 100% 6 GM PACKET PO SCH ×2 (09:57→20:19)
[2022-10-19] MEDS: THIAMINE 100 MG TAB PO SCH (09:57)
[2022-10-19] MEDS: chlordiazePOXIDE 25 MG CAP PO SCH ×3 (10:00→22:05)
--- NOTE | 2022-10-19 18:26 | P.PN ---
Progress Note - Text Progress Note Date: 10/19/22 Hospital course The patient is a 57-year-old male with a PMH of EtOH abuse and chronic lower back pain who presents to the emergency room with complaints of alcohol intoxication and abdominal pain. Laboratory evaluation was reviewed and was remarkable for serum alcohol level of 283, lactic acid 4.2, AST 116, ALT 52, troponin less than 0.012, with hemoglobin 18.6. The patient was febrile upon presentation to the emergency room with T-max 100.8F, pulse 110, and SpO2 94% on room air with BP 150/100. CT abdomen and pelvis was unremarkable with CT brain also unremarkable. EKG revealed sinus rhythm at 98 bpm with a right bundle branch block as reviewed by me. Chest x-ray was unremarkable. Patient seen and examined at bedside. Daughters at bedside all questsions anwered. He reports that he is feeling nauseated and just over all not well, He has a mild headache, he appears to be somewhat restless. He states he was drinking a fifth and several beers daily and has been since the start of coping. 10/18/2022: Assumed care of the patient today. Patient's disease had diarrhea for several years. Could be up to multiple times a day. Metamucil added. No abdominal pain. Patient on Librium.. Patient is having significant nausea. Vomiting. Change to full liquid diet. Had to be set up in a chair. 10/19/2022: Patient doing much better today. No nausea. No vomiting. Tolerated full liquid diet. Advance to soft diet. Some improvement in diarrhea. We'll follow-up with GI outpatient. Counseling done at length for the alcohol. He has family support. Increase activity. DC IV fluids. Increase ambulation. Active Medications Albuterol Sulfate (Albuterol Nebulized 2.5 Mg/3 Ml) 2.5 mg INHALATION RT-QID PRN PRN Reason: Shortness Of Breath Or Wheezing Calcium Carbonate/Glycine (Calcium Carbonate Liquid 500 Mg/5 Ml Cup) 500 mg PO TID-W/MEALS [facility] Last Admin: 10/19/22 17:57 Dose: 500 mg Chlordiazepoxide HCl (Chlordiazepoxide 25 Mg Cap) 25 mg PO TID [facility] Last Admin: 10/19/22 16:28 Dose: 25 mg Heparin Sodium (Porcine) (Heparin Sodium,Porcine/Pf 5,000 Unit/0.5 Ml Syringe) 5,000 unit SQ Q8HR [facility] Last Admin: 10/19/22 16:28 Dose: 5,000 unit Lorazepam (Lorazepam 2 Mg/Ml Inj) 1 mg IV Q1HR PRN PRN Reason: CIWA 10 to 15 Last Admin: 10/18/22 02:22 Dose: 1 mg Lorazepam (Lorazepam 2 Mg/Ml Inj) 1 mg IV Q2HR PRN PRN Reason: CIWA 8 or 9 Last Admin: 10/18/22 20:20 Dose: 1 mg Naloxone HCl (Naloxone 0.4 Mg/Ml 1 Ml Vial) 0.2 mg IV Q2M PRN PRN Reason: Opioid Reversal Ondansetron HCl (Ondansetron 4 Mg/2 Ml Vial) 4 mg IVP Q6HR PRN PRN Reason: Nausea And Vomiting Last Admin: 10/19/22 08:59 Dose: 4 mg Pantoprazole Sodium (Pantoprazole 40 Mg Tablet) 40 mg PO BID [facility] Last Admin: 10/19/22 09:57 Dose: 40 mg Psyllium Hydrophilic Mucilloid (Psyllium Husk 100% 6 Gm Packet) 6 gm PO BID [facility] Last Admin: 10/19/22 09:57 Dose: 6 gm Thiamine HCl (Thiamine 100 Mg Tab) 100 mg PO DAILY [facility] Last Admin: 10/19/22 09:57 Dose: 100 mg On examination: VITAL SIGNS: [98, 87, 22, 144/89, 98% room air GENERAL APPEARANCE: Sitting up in a chair, less anxious HEENT: Normal external appearance of nose and ear. Oral cavity normal EYES: Pupils equal. Conjunctiva normal. NECK: JVD not raised. Mass not palpable. RESPIRATORY: Respiratory effort normal. Lungs clear to auscultation. CARDIOVASCULAR: First and second sounds normal. No edema. ABDOMEN: Soft. Liver and spleen not palpable. No tenderness. No mass palpable. PSYCHIATRY: Alert and oriented x3. Mood and affect was anxious INVESTIGATIONS, reviewed in the clinical context: 10/19/2022: White count 4.4 ProTime 12.4 Potassium 3.7 BUN 5 creatinine 0.74 Urine drug screen positive for opiates, benzodiazepines, marijuana COVID-19/influenza type A/diabetes/: Not detected Serum alcohol [address] abdomen pelvis without contrast: Unremarkable Assessment and plan: -Acute alcohol intoxication on presentation -Alcohol use disorder CIWA scale. On Librium. -Alcohol withdrawal syndrome: Improving On Librium, CIWA scale -Chronic diarrhea with multiple bowel movements a day for years. Does report bleeding at times.: New diagnosis Metamucil. We'll consult GI even service available -Type II lactic acidosis in the setting of renal failure. No sepsis. -Persistent nausea vomiting likely from acute on chronic gastritis secondary to alcoholism: Not improving Protonix 40 mg twice a day. Liquid Tums. Advance to soft diet -Acute on chronic gastritis and alcoholism PPI -Clinical dehydration IV fluids -Recreational marijuana use Counseling -Intermittent asthma Albuterol when necessary -Obesity BMI 34.5 Weight loss measures outpatient -Full code Continue current medications. Discussed length with the patient. Increase activity. Probable discharge tomorrow. Advance to a soft diet. Counseled ab out alcohol at length.
[2022-10-19] MEDS: LORazepam 2 MG/ML INJ IV PRN (20:18)
[2022-10-20 08:41] VITALS: BP 134/88; PULSE 75; RESP 18; TEMP 98.2
[2022-10-20] MEDS: HEPARIN SODIUM,PORCINE/PF 5,000 UNIT/0.5 ML SYRINGE SQ SCH (09:03)
[2022-10-20] MEDS: THIAMINE 100 MG TAB PO SCH (09:04)
[2022-10-20] MEDS: PSYLLIUM HUSK 100% 6 GM PACKET PO SCH ×2 (09:04→09:05)
[2022-10-20] MEDS: PANTOPRAZOLE 40 MG TABLET PO SCH (09:04)
[2022-10-20] MEDS: chlordiazePOXIDE 25 MG CAP PO SCH (09:04)
--- NOTE | 2022-10-20 16:23 | P.DS ---
Providers Date of admission: 10/16/22 23:47 Expected date of discharge: 10/20/22 Attending physician: George Scherer Primary care physician: Stated None Hospital Course: Hospital course The patient is a 57-year-old male with a PMH of EtOH abuse and chronic lower back pain who presents to the emergency room with complaints of alcohol intoxication and abdominal pain. Laboratory evaluation was reviewed and was remarkable for serum alcohol level of 283, lactic acid 4.2, AST 116, ALT 52, troponin less than 0.012, with hemoglobin 18.6. The patient was febrile upon presentation to the emergency room with T-max 100.8F, pulse 110, and SpO2 94% on room air with BP 150/100. CT abdomen and pelvis was unremarkable with CT brain also unremarkable. EKG revealed sinus rhythm at 98 bpm with a right bundle branch block as reviewed by me. Chest x-ray was unremarkable. Patient seen and examined at bedside. Daughters at bedside all questsions anwered. He reports that he is feeling nauseated and just over all not well, He has a mild headache, he appears to be somewhat restless. He states he was drinking a fifth and several beers daily and has been since the start of coping. 10/18/2022: Assumed care of the patient today. Patient's disease had diarrhea for several years. Could be up to multiple times a day. Metamucil added. No abdominal pain. Patient on Librium.. Patient is having significant nausea. Vomiting. Change to full liquid diet. Had to be set up in a chair. 10/19/2022: Patient doing much better today. No nausea. No vomiting. Tolerated full liquid diet. Advance to soft diet. Some improvement in diarrhea. We'll follow-up with GI outpatient. Counseling done at length for the alcohol. He has family support. Increase activity. DC IV fluids. Increase ambulation. 10/20/2022: Significantly improved. Patient has good home support. Diet, alcohol, lifestyle discussed in length. Questions answered. Diarrhea better Discussion and discharge planning more than 35 minutes On examination: VITAL SIGNS: 98.2, 75, 18, 134/88, 97% room air GENERAL APPEARANCE: Sitting comfortable HEENT: Normal external appearance of nose and ear. Oral cavity normal EYES: Pupils equal. Conjunctiva normal. NECK: JVD not raised. Mass not palpable. RESPIRATORY: Respiratory effort normal. Lungs clear to auscultation. CARDIOVASCULAR: First and second sounds normal. No edema. ABDOMEN: Soft. Liver and spleen not palpable. No tenderness. No mass palpable. PSYCHIATRY: Alert and oriented x3. Mood and affect less anxious INVESTIGATIONS, reviewed in the clinical context: 10/19/2022: White count 4.4 ProTime 12.4 Potassium 3.7 BUN 5 creatinine 0.74 Urine drug screen positive for opiates, benzodiazepines, marijuana COVID-19/influenza type A/diabetes/: Not detected Serum alcohol [address] abdomen pelvis without contrast: Unremarkable Assessment and plan: -Acute alcohol intoxication on presentation -Alcohol use disorder CIWA scale. On Librium. -Alcohol withdrawal syndrome: Improving On Librium, CIWA scale -Chronic diarrhea with multiple bowel movements a day for years. Does report bleeding at times.: New diagnosis Metamucil. Patient to follow with GI through PCP as outpatient -Type II lactic acidosis in the setting of renal failure. No sepsis. -Persistent nausea vomiting likely from acute on chronic gastritis secondary to alcoholism: Improved Protonix 40 mg twice a day. Liquid Tums. Tolerating diet -Acute on chronic gastritis and alcoholism PPI -Clinical dehydration IV fluids -Recreational marijuana use Counseling -Intermittent asthma Albuterol when necessary -Obesity BMI 34.5 Weight loss measures outpatient -Full code Disposition: Home Plan - Discharge Summary New Discharge Prescriptions: New Psyllium Husk 100% [Metamucil Packet] 6 gm PO BID #60 packet Pantoprazole [Protonix] 40 mg PO BID #60 tab Thiamine [Vitamin B-1] 100 mg PO DAILY #30 tab Discharge Medication List Pantoprazole [Protonix] 40 mg PO BID #60 tab 10/20/22 [Rx] Psyllium Husk 100% [Metamucil Packet] 6 gm PO BID #60 packet 10/20/22 [Rx] Thiamine [Vitamin B-1] 100 mg PO DAILY #30 tab 10/20/22 [Rx] Follow up Appointment(s)/Referral(s): Emeli Greco NPC [Nurse Practitioner] - 1 Week Patient Instructions/Handouts: Alcohol Intoxication (DC) Discharge Disposition: HOME SELF-CARE
== END 2022-10-20 10:34 | disposition home or self-care (01) | DRG 897 ==
LOC: EC 19:27 → 5NMEDONC 23:47 → 4SSUR 10-17 05:58 → 6NMEDSUR 10-17 06:38
PROVIDERS: ADMIT Hospitalist; ATTEND Hospitalist
PROC: HZ2ZZZZ Detoxification Services for Substance Abuse Treatment (ICD-10-PCS; principal; 2022-10-16)
DX: F10.229 Alcohol dependence with intoxication, unspecified (principal); J44.1 Chronic obstructive pulmonary disease with (acute) exacerbation; E87.20 Acidosis, unspecified; F10.231 Alcohol dependence with withdrawal delirium; N19 Unspecified kidney failure; K29.20 Alcoholic gastritis without bleeding; E66.9 Obesity, unspecified; Z68.34 Body mass index [BMI] 34.0-34.9, adult; J45.20 Mild intermittent asthma, uncomplicated; G89.29 Other chronic pain; E78.5 Hyperlipidemia, unspecified; I45.10 Unspecified right bundle-branch block; K52.9 Noninfective gastroenteritis and colitis, unspecified; E86.0 Dehydration; M54.50 Low back pain, unspecified; Y90.8 Blood alcohol level of 240 mg/100 ml or more; Z20.822 Contact with and (suspected) exposure to COVID-19; Z88.6 Allergy status to analgesic agent; Z28.310 Unvaccinated for COVID-19; Z87.891 Personal history of nicotine dependence
CPT/HCPCS: 36415; 51798; 70450; 71046; 74018; 74176; 80048; 80053; 80306; 80320; 82550; 83605; 83690; 83735; 84484; 85025; 85610; 87502; 87635; 93005; 96361; 96372; 96374; 96375; 96376; 99285

== ENCOUNTER → 2022-11-10 | Outpatient (CLI) | payer MEDICARE ==
[2022-11-10 10:02] VITALS: BP 167/86; PULSE 75; RESP 18
--- NOTE | 2022-11-10 14:14 | P.PAINPG ---
PQRS Measure Charge Sheet Comment: HISTORY OF PRESENT ILLNESS: 57 yr old male as a referral from Emeli OG presents today w severe and chronic LBP secondary to DDD, spondylosis and facet arthropathy without myelopathy for evaluation. Pt states pain level is at 9/10 in intensity, constant, localized in the lower lumbar spine, burning, achy in character w shooting pain towards the BL hips and BL knees. Pain is provoked by chiropractic treatments, waling/ standing for periods of 15 min or more. Pain is alleviated by PT in the past without relief, home exercise as tolerated, meds (Ibu 800mg, Tramadol, Robaxin), repositioning and rest. Has had epidurals in the past without relief. Is interested in RFA, if possible. PMH: OA, Asthma, Hyperlipidemia, MDD PSH: Lumbar surgery (Jul 2016), Shoulder surgery, Femur Surgery SH: Never smoker, Hx of ETOH abuse, +Cannabis use FH: Fa- Lung CA w mets/ , Mo- CRF/ All: See list Meds: See list REVIEW OF ORGAN SYSTEMS: CONSTITUTIONAL: No fevers or chills. No recent weight loss. NEUROLOGICAL: + numbness and tingling along the distal extremities. No seizure disorders or headaches. MUSCULOSKELETAL: + pain PSYCHIATRIC: Denies current depression or suicidal thoughts. Physical Examinations : Constitutional : Cooperative , not in acute distress . Neurologic : Cranial nerve II to XII intact. No focal neurological deficits. Psychiatric : alert & oriented x 3. Matching mood & appropriate affect. Judgment & insight intact. Musculoskeletal : Cervical Spine Motor strength in the deltoid and biceps: Normal right side. Normal Left side Motor strength biceps and the wrist extensors: Normal right side . Normal left side Motor strength in the triceps muscle: Normal right side. Normal left side Deep tendon reflexes: Normal at the biceps. Normal at Brachioradialis. Normal at triceps Vertebral body tenderness to deep palpation over Cervical facet loading test: positive bilaterally Spurling test: positive bilaterally Neck distraction test: positive bilaterally Burt sign: positive bilaterally Lumbar spine Motor strength lower extremities ,thigh and legs 5/5 Right side , 5/5 Left side Deep tendon reflexes : Normal Knee Jerk. Normal Ankle Jerk Vertebral body tenderness over Lumbar facet Loading Test: positive Right / positive Left over BL L3-L4, L4-L5, L5-S1 Range of motion of the lumbar spine Flexion 30 degrees, extension 10 degrees Straight Leg Raise test: Left/ Right positive at degree Shivani test: positive right / positive left. Severe tenderness over the Sacroiliac joint on the Right / Left sides Gaenslen test: positive bilaterally Seated flexion test: positive bilaterally. Sacral spine : Severe tenderness over the Sacroiliac joint: right side / left side Range of motion: Flexion of the lumbar spine <60 degrees Range of motion: Extension of the lumbar spine <20 degrees Gaenslen's Test positive Mark's Test positive Shivani test: positive right side / left side Thigh Thrust Test Sacral Thrust Test Imaging: None on file Assessment/ Plan : Lumbar DDD Recommendation of lumbar x ray re: M51.36 May need additional testing if indicated. May return to clinic within 2-3 wks for a re evaluation. Risks, benefits of procedure discussed and patient verbalized understanding. Denies aspirin or anti- coagulant use or medical history of diabetes. Protocol for discontinuation/ continuation of medications berenice procedure discussed. All questions answered. I have spent greater than 30 minutes on patient care today. Dr Simmons was available by phone for the evaluation of this patient. The time was used to review the medical records including relevant urine studies and Prescription history (MAPs), review of the available imaging, evaluation and examination of the patient, coordination of care with the medical staff and if applicable referring physicians, as well as creation of the medical record - Pain Location Lower Back Non-Pharmacological Interventions: Chiropractic Treatment, Heat, Home Exercise, Ice, Inactivity, Physical Therapy, Position/Reposition, Stretching Pharmacological Interventions: PRN Medication, Scheduled Medication PQRS Narrative: Smoking Status Former smoker Home Medications: Ambulatory Orders Pantoprazole [Protonix] 40 mg PO BID #60 tab 10/20/22 Psyllium Husk 100% [Metamucil Packet] 6 gm PO BID #60 packet 10/20/22 Thiamine [Vitamin B-1] 100 mg PO DAILY #30 tab 10/20/22 Acamprosate Calcium [Campral] 666 mg PO BID 11/10/22 Ibuprofen [Motrin] 800 mg PO Q8H 11/10/22 PARoxetine HCL 20 mg PO DAILY 11/10/22 methocarbamoL [Methocarbamol] 500 mg PO Q4H PRN 11/10/22 traMADol HCL 50 mg PO Q6H 11/10/22 Controlled Substance Measures - Controlled Substance Measures Is patient prescribed a controlled substance at discharge?: No
== END ==
LOC: PNWHC3 09:40
PROVIDERS: ATTEND Specialist
DX: M51.36 Other intervertebral disc degeneration, lumbar region (principal); Z88.6 Allergy status to analgesic agent; Z87.891 Personal history of nicotine dependence; M19.90 Unspecified osteoarthritis, unspecified site; J45.909 Unspecified asthma, uncomplicated; E78.5 Hyperlipidemia, unspecified; F32.9 Major depressive disorder, single episode, unspecified
CPT/HCPCS: 99211

== ENCOUNTER → 2022-11-10 | Outpatient (CLI) | payer MEDICARE ==
--- NOTE | 2022-11-10 15:53 | XR ---
EXAMINATION TYPE: XR lumbar spine 2 or 3V DATE OF EXAM: 11/10/2022 CLINICAL HISTORY: Chronic low back pain TECHNIQUE: Frontal, lateral, and oblique images of the lumbar spine are obtained. COMPARISON: 02/19/[address] abdomen pelvis 10/16/2022 FINDINGS: There are 5 lumbar-type vertebral bodies. There is mild dextroconvex curvature of the lumba r spine. There is mild retrolisthesis of L3 on L4 which is unchanged. Multilevel degenerative changes are present, but most prominent at L3-L4 where there are at least moderate hypertrophic facet change s and moderate disc space narrowing. Laminectomy changes at L4. IMPRESSION: Fairly stable chronic degenerative changes, worse at L3-L4. No acute process.
== END | disposition home or self-care (01) ==
LOC: RADXRMAIN 10:53
PROVIDERS: ATTEND Physician Assistant Medical
DX: M47.816 Spondylosis without myelopathy or radiculopathy, lumbar region (principal); M51.36 Other intervertebral disc degeneration, lumbar region; G89.29 Other chronic pain
CPT/HCPCS: 72100

== ENCOUNTER → 2023-03-23 | Outpatient (CLI) | payer MEDICARE ==
[2023-03-23 09:02] LABS: INR 1.1 (<1.2); Partial Thromboplastin Time 23.6 sec (22.0-30.0)
[2023-03-23 16:14] LABS: ALT 21 U/L (10-49); AST 22 U/L (14-35); Albumin 4.3 d/dL (3.8-4.9); Albumin/Globulin Ratio 1.95 Ratio (1.60-3.17); Alkaline Phosphatase 85 U/L (41-126); BUN/Creat Ratio 12.11 Ratio (12.00-20.00); Blood Urea Nitrogen 10.9 mg/dL (9.0-27.0); Calcium 9.8 mg/dL (8.7-10.3); Carbon Dioxide 27.8 mmol/L (21.6-31.8); Chloride 104 mmol/L (96-109); Globulin 2.2 d/dL (1.6-3.3); Glucose 117 mg/dL (70-110); Potassium 4.5 mmol/L (3.5-5.5); Sodium 141 mmol/L (135-145); Total Bilirubin 0.6 mg/dL (0.3-1.2); Total Protein 6.5 d/dL (6.2-8.2)
[2023-03-23 19:41] LABS: HCT 47.7 % (39.6-50.0); HGB 14.9 d/dL (12.0-15.0); MCH 31.2 pg (27.0-32.0); MCHC 31.2 d/dL (32.0-37.0); MCV 99.8 FL (80.0-97.0); Mean Platelet Volume 9.3 FL (9.5-12.2); NRBC Per 100 WBC 0 X 10*3/uL (0.00-0.01); Platelet Count 268 X 10*3/uL (140-440); RBC 4.78 X 10*6/uL (4.40-5.60); RDW 12.7 % (11.5-14.5); WBC 7.64 X 10*3/uL (4.50-10.00)
[2023-03-23 22:22] LABS: Appearance,Urine Clear (Clear); Bilirubin,Urine Negative (Negative); Blood,Urine Negative (Negative); Color,Urine Yellow (Yellow); Ketones,Urine Negative (Negative); Nitrite,Urine Negative (Negative); Specific Gravity,Urine 1.019 (1.001-1.030); Urobilinogen,Urine 0.2
== END | disposition home or self-care (01) ==
LOC: LABPAT 07:46
PROVIDERS: ATTEND Orthopaedic Surgery
DX: Z01.818 Encounter for other preprocedural examination (principal); I45.4 Nonspecific intraventricular block; M16.11 Unilateral primary osteoarthritis, right hip; R94.31 Abnormal electrocardiogram [ECG] [EKG]
CPT/HCPCS: 80053; 83036; 85027; 85610; 85730; 87070; 93005

== ENCOUNTER 2023-04-01 11:03 | Observation (INO) | payer MEDICARE ==
[2023-03-29 11:51] VITALS: BMI 32.8
[~2023-04-01 11:03] MED LIST: ACETAMINOPHEN TAB 500 MG TAB PO PRN; DEXAMETHASONE SOD PHOSPHATE 10 MG/ML 1 ML VIAL IV PRN; DOCUSATE 100 MG CAP PO PRN; FAMOTIDINE 20 MG/2 ML VIAL IVP PRN; KETOROLAC 15 MG/ML 1 ML VIAL IVP PRN; MIDAZOLAM 2 MG/2 ML VIAL IV PRN; ONDANSETRON 4 MG/2 ML VIAL IVP PRN; ROPIVACAINE/EPI/CLONIDINE/KET 50 ML SYRINGE MISCELLANE PRN; TRANEXAMIC 1,000 MG/100ML-NACL 1,000 MG in SALINE 1 100ML.BAG IV PRN; TRANEXAMIC 1,000 MG/100ML-NACL 1,000 MG in SALINE 1 100ML.BAG IVPB PRN; oxyCODONE ER 10 MG TAB.ER.12H PO PRN
[2023-04-01] MEDS: LACTATED RINGERS 1,000 ML IV SCH ×2 (12:03→17:11)
[2023-04-01] MEDS ORDERED: fentaNYL (PF) 50 MCG/ML 2 ML AMP IVP ONE (12:23)
[2023-04-01] MEDS ORDERED: MIDAZOLAM 2 MG/2 ML VIAL IVP ONE (12:23)
--- NOTE | 2023-04-01 12:38 | P.ANPRN ---
Procedure Note - Anesthesia - Nerve Block Performed Right Luis Time Out Performed: Yes (:) Date of Procedure: 04/01/23 Procedure Start Time: Procedure Stop Time: Location of Patient: PreOp Indication: Acute Post-Operative Pain, Requested by Surgeon (Dr Cisneros) Sedation Type: Sedate with meaningful contact maintained Preparation: Sterile Prep Position: Supine Catheter: None Needle Types: Pajunk Needle Gauge: 21 Ultrasound used to visualize needle placement: Yes Ultrasound used to observe medication spread: Yes Injectate: 0.5% Ropivacaine (see comment for volume) (20cc +5cc PF Normal saline) Blood Aspirated: No Pain Paresthesia on Injection Noted: No Resistance on Injection: Normal Image Stored and Saved: Yes Events: Uneventful and Well Tolerated
[2023-04-01] MEDS ORDERED: SODIUM CHLORIDE 0.9% (PF) 10 ML VIAL ONE (13:15)
[2023-04-01] MEDS ORDERED: ROCURONIUM 10 MG/ML (5 ML VIAL) IV ONE (13:15)
[2023-04-01] MEDS ORDERED: LIDOCAINE 2% INJ 20 MG/ML (2 ML VIAL) ONE (13:15)
[2023-04-01] MEDS ORDERED: TRANEXAMIC 1,000 MG/100ML-NACL PREMIX BAG ONE (13:15)
[2023-04-01] MEDS ORDERED: PROPOFOL 10 MG/ML 20 ML VIAL IV ONE (13:15)
[2023-04-01] MEDS ORDERED: SUCCINYLCHOLINE CHLORIDE 200 MG/10 ML VIAL IV ONE (13:15)
[2023-04-01] MEDS ORDERED: HYDROmorphone (PF) 1 MG/ML ONE (13:15)
[2023-04-01] MEDS ORDERED: NEOSTIGMINE 1 MG/ML 10 ML VIAL ONE (13:15)
[2023-04-01] MEDS ORDERED: ePHEDrine 50 MG/ML 1 ML VIAL ONE (13:15)
[2023-04-01] MEDS ORDERED: ROPIVACAINE 5 MG/ML 30 ML VIAL ONE (13:15)
[2023-04-01] MEDS ORDERED: GLYCOPYRROLATE 0.2 MG/ML 2 ML VIAL ONE (13:15)
[2023-04-01] MEDS ORDERED: MIDAZOLAM 2 MG/2 ML VIAL ONE (13:15)
[2023-04-01] MEDS ORDERED: fentaNYL (PF) 50 MCG/ML 2 ML AMP ONE (13:15)
[2023-04-01] MEDS: ROPIVACAINE/EPI/CLONIDINE/KET 50 ML SYRINGE MISCELLANE PRN ×2 (13:58→15:07)
--- NOTE | 2023-04-01 15:26 | XR ---
EXAMINATION TYPE: XR Hip Limited RT DATE OF EXAM: 04/01/2023 COMPARISON: NONE HISTORY: Postop TECHNIQUE: One view submitted. FINDINGS: There is postsurgical change in near anatomic alignment. There is soft tissue edema and emphysema. IMPRESSION: 1. Postoperative change. Appears in near-anatomic alignment.
--- NOTE | 2023-04-01 15:27 | FL ---
EXAMINATION TYPE: FL guidance operating room DATE OF EXAM: 04/01/2023 HISTORY: Fluoroscopy time Total dose area product (DAP) in uGy*m?, mGy*cm? (or similar): 5.0766 IMPRESSION: 1. Fluoroscopy time.
[2023-04-01] MEDS ORDERED: LACTATED RINGERS 1,000 ML IV ONE (15:41)
--- NOTE | 2023-04-01 15:47 | P.OP ---
Date of Procedure: 04/01/23 Preoperative Diagnosis: 1. Severe right hip osteoarthritis 2. Chronic pain on Percocet at baseline Postoperative Diagnosis: Same Procedure(s) Performed: Right direct anterior total hip arthroplasty Implants: 1. Grabiel Trident II Acetabular Cup, Size #50 2. [place] Insignia Size #5 Femoral Stem, Standard Offset 3. Biolox delta femoral head, 36 mm, -5 mm neck Anesthesia: RICHARD, regional Surgeon: Bayron Cisneros [employer] Registrar #1: Flor Harley Estimated Blood Loss (ml): 200 IV fluids (ml): 800 Pathology: none sent Condition: stable Disposition: PACU Indications for Procedure: I had a long discussion with the patient in the office on the potential risks and complications of an elective total hip replacement through a direct anterior approach. Risks discussed include, but are certainly not limited to, risks from anesthesia, superficial infection requiring local wound care or antibiotics, deep berenice-prosthetic joint infection and the treatment required to eradicate infection, intraoperative fracture, postoperative periprosthetic fracture, damage to local blood vessels or nerves particularly the lateral femoral cutaneous nerve, delayed wound healing requiring local wound care or possibly surgical debridement, hip dislocation, leg length discrepancy, soft tissue irritation around the total hip implant such as iliopsoas tendinitis or trochanteric bursitis, wear and osteolysis from the implants, squeaking or audible noises, groin pain, thigh pain, heterotopic ossification, stiffness, aseptic loosening of the implants, dissatisfaction with surgical outcome, need for revision surgery, DVT, PE, swelling of the operative extremity, acute coronary event, stroke, failure to thrive, and possibly loss of life or limb. The patient understands that while these are the most common complications after an elective hip replacement there are certainly other less common complications possible. They were given ample time to ask questions regarding the potential complications of a hip replacement. Following our discussion the patient provided their verbal and written consent to go forward with an elective total hip replacement. Operative Findings: Severe right hip osteoarthritis Description of Procedure: The patient was identified in the preoperative holding area and the correct hip was marked with my initials. I reviewed the procedure and consent with the patient. All of their questions were answered. The patient was then brought back into the operating room by anesthesia. While on the [facility] anesthesia was administered by the anesthesia team. Preoperative antibiotics and tranexamic acid were also given. After the patient was under anesthesia I examined their ankles to determine their preoperative leg length discrepancy. The skin over the anterior aspect of the hip was shaved to remove hair over the site of planned incision. Both feet and ankles were padded with webril and boots for the [place] were applied. The patient was then carefully transferred onto the [place] table. A perineal post was immediately placed. The arms were placed on arm holders and were well-padded. Both boots were secured to the spars on the Wh[place] table. The patient was positioned so that the pelvis was centered over the post. Nonsterile drapes were applied. A timeout was performed identifying the correct patient, operative extremity, and procedure. At this point fluoroscopy was brought in to take preoperative images of the pelvis and operative hip. Using the standing AP pelvis from the office as a template, a comparable image was obtained with fluoroscopy. A metallic bar was used to create a bi-ischial line for use as a reference to leg length adjustments during the procedure. Global offset was also measured on both the operative and nonoperative leg. Fluoroscopy was then brought out and a pre-scrub using a chlorhexidine scrub brush was performed. The operative limb was then prepped and draped in the standard sterile fashion. An anterior longitudinal incision was made lateral and distal to the ASIS. The skin and subcutaneous tissues were incised sharply. The underlying tensor fascia was identified and incised in its midportion. The fascia was dissected free from the underlying muscle and the muscle belly was retracted. A blunt tipped cobra retractor was placed over the superior neck under the muscle fibers of the gluteus minimus. The deep enveloping fascia of the tensor was incised. The anterior leash of vessels were then identified and cauterized. The fascia between the rectus and the capsule was then incised and the pre-capsular fat was excised. A second Cobra was placed inferior to the neck. The interval between the rectus and iliocapsularis and the hip capsule was developed and a retractor was placed carefully over the anterior rim of the acetabulum. A T-shaped anterior capsulotomy was performed. The superior capsular leaflet was left in place in the inferior capsular flap was excised. The Cobra retractors were placed intracapsularly. We then made a femoral neck osteotomy according to preoperative and intraoperative templating and confirmed the level of the osteotomy using fluoroscopic imaging. The femoral head was removed, passed off to the back table, and sized. The superior capsular flap was excised. Retractors were placed circumferentially exposing the acetabulum. We then circumferentially debrided the acetabulum free of labrum and osteophytes. The pulvinar was removed to fully visualize the cotyloid fossa. We then sequentially reamed to achieve peripheral fit and excellent bleeding subchondral bone. The socket was thoroughly irrigated. The acetabular component was impacted into the appropriate position using fluoroscopy to guide version, inclination, and depth of insertion taking care to have a comparable image of the AP pelvis to the standing image taken in the office. An excellent press-fit was achieved and final position was confirmed using fluoroscopy. The press fit was augmented with bony cancellus dome screws. The liner was then impacted into the socket. Attention was then turned to the femur. The remnant dorsal lateral capsule was excised. The short external rotators were visible and protected. A bone hook was used to confirm appropriate translation of the trochanter away from the acetabulum. The leg was then extended and adducted and the bone hook was used to elevate the femur for broaching. A box osteotome and blunt tipped canal sound was then utilized to gain access to the femoral canal. We then sequentially broached the femur in appropriate anteversion until excellent torsional stability was achieved. The neck cut was brought flush to the trial broach with a calcar planar. A trial neck and head were then placed onto the broach and the hip was atraumatically reduced under direct visualization. External rotation to 90 was performed to assess stability. Fluoroscopy was brought in. An AP and lateral fluoroscopic image of the proximal femur was obtained to assess position and fill of the trial broach. An AP of the pelvis was then obtained and matched to the preoperative image taken. A bi-ischial bar was then placed and measurements were taken to assess changes in length and offset. The hip was then carefully dislocated, the proximal femur was exposed, and the trial implants were removed. The wound and proximal femur was thoroughly irrigated using sterile saline and pulsatile lavage. The final femoral implant was dispensed and gently tapped into place generating an excellent press-fit. The trunnion was cleansed and the final head was tapped into place to engage the Ly taper. The acetabulum was irrigated and visualized to be free of debris. The hip was carefully reduced. Stability was checked clinically with external rotation to 90 and there was no evidence of instability. Final fluoroscopic images were taken. The wound was then thoroughly irrigated and soaked with a dilute Betadine rinse for 3 minutes. 3 L of sterile saline was irrigated through the wound using pulsatile lavage. Local anesthetic cocktail was injected into the soft tissues around the surgical fie ld. A deep drain was placed. The wound was then closed in layers. A sterile dressing was placed over the surgical incision and drain site. The drapes were taken down and the patient was carefully transferred off of the Wh[place] table. Following removal of the boots the leg lengths felt acceptable. The patient was then taken to recovery room having tolerated the procedure well. Flor Harley PA-C was required as a skilled delinquent tax collector assistant for patient positioning, surgical exposure, retraction, placement of implants, and closure of the surgical wound. PLAN: The patient can weight-bear as tolerated on the operative extremity. 2 doses of postoperative antibiotics. DVT prophylaxis with aspirin 81 mg twice a day based on preoperative risk stratification. Physical therapy for gait training. Discontinue drain postoperative day #1 if output is less than 100 mL per shift.
[2023-04-01] MEDS ORDERED: ONDANSETRON 4 MG/2 ML VIAL IVP PRN ×2 (15:49→20:02)
[2023-04-01] MEDS ORDERED: HYDROmorphone 1 MG/ML 1 ML SYRINGE IVP PRN (15:49)
[2023-04-01] MEDS ORDERED: HYDROmorphone 0.5 MG/0.5 ML SYRINGE IVP PRN ×2 (15:49)
[2023-04-01] MEDS ORDERED: NALOXONE 0.4 MG/ML 1 ML VIAL IV PRN (15:49)
[2023-04-01] MEDS: HYDROmorphone 0.5 MG/0.5 ML SYRINGE IVP PRN ×4 (16:05→16:30)
--- NOTE | 2023-04-01 20:00 | XR ---
EXAMINATION TYPE: XR Hip Limited RT DATE OF EXAM: 04/01/2023 7:43 PM INDICATION: Patient age:Male; 58 years old; Reason for study: fall, pain; COMPARISON: 02/19/2018 TECHNIQUE: The right hip was examined in the frontal projections FINDINGS: Post arthroplasty changes, hardware is intact, alignment is appropriate. No evidence of fra cture. No evidence of any acute osseous pathology or joint dislocation. IMPRESSION: Hip arthroplasty with hardware intact and in appropriate alignment. No acute fracture.
[2023-04-01] MEDS ORDERED: ACETAMINOPHEN TAB 325 MG TAB PO PRN (20:01)
[2023-04-01] MEDS: ASPIRIN 81 MG PO SCH (20:33)
[2023-04-01] MEDS: SENNOSIDES-DOCUSATE SODIUM 1 EACH TAB PO SCH (20:33)
--- NOTE | 2023-04-01 20:47 | CT ---
EXAMINATION TYPE: CT brain wo con CT DLP: 1133.4 mGycm, Automated exposure control for dose reduction was used. DATE OF EXAM: 04/01/2023 8:26 PM COMPARISON: 10/16/2022. CLINICAL INDICATION:Male, 58 years old with history of fall, Recent Hip Sx. Pt had syncopal episode a nd hit anterior and posterior cranium. TECHNIQUE: Brain: Axial CT images of the brain were obtained with coronal and sagittal reformats created and rev iewed. Contrast used: None. Oral contrast used: None. FINDINGS: Brain: Extra-axial spaces: No abnormal extra-axial fluid collections. Ventricular system: Within normal limits Cerebral parenchyma: No acute intraparenchymal hemorrhage or mass effect. The clark-white junction is well differentiated. Cerebellum: Unremarkable. Mass effect: No evidence of midline shift. Intracranial vasculature: Atherosclerotic calcifications of the intracranial vessels. Soft tissues: Normal. Calvarium/osseous structures: No depressed skull fracture. Paranasal sinuses and mastoid air cells: Mild scattered paranasal sinus disease. Visualized orbits: Orbital contents are intact. IMPRESSION: No acute intracranial process.
[2023-04-01] MEDS: oxyCODONE-APAP 7.5-325MG 1 EACH TAB PO PRN (22:02)
[2023-04-02] MEDS: LACTATED RINGERS 1,000 ML IV SCH ×3 (02:53→13:11)
[2023-04-02] MEDS: oxyCODONE-APAP 7.5-325MG 1 EACH TAB PO PRN ×4 (04:11→20:47)
[2023-04-02 06:21] LABS: Basophils % (A) 0 %; Eosinophils % (A) 0 %; HCT 34.1 % (39.0-53.0); HGB 11.4 gm/dL (13.0-17.5); Lymphocytes # (A) 0.5 k/uL (1.0-4.8); Lymphocytes % (A) 4 %; MCH 30.8 pg (25.0-35.0); MCHC 33.3 g/dL (31.0-37.0); MCV 92.7 fL (80.0-100.0); Mean Platelet Volume 7.2; Monocytes # (A) 0.8 k/uL (0-1.0); Monocytes % (A) 6 %; Neutrophils # (A) 11.7 k/uL (1.3-7.7); Neutrophils % (A) 89 %; Platelet Count 230 k/uL (150-450); RBC 3.68 m/uL (4.30-5.90); RDW 12.4 % (11.5-15.5); WBC 13.1 k/uL (3.8-10.6)
[2023-04-02 07:00] LABS: African American GFR (CKD) >90 (>60 ml/min/1.73 sqM); Anion Gap 6 mmol/L; Blood Urea Nitrogen 13 mg/dL (9-20); Calcium 8.2 mg/dL (8.4-10.2); Carbon Dioxide 27 mmol/L (22-30); Chloride 102 mmol/L (98-107); Glucose 156 mg/dL (74-99); Non-African American GFR(CKD) >90 (>60 ml/min/1.73 sqM); Potassium 4.3 mmol/L (3.5-5.1); Sodium 135 mmol/L (137-145)
[2023-04-02] MEDS: ASPIRIN 81 MG PO SCH ×2 (09:49→20:47)
--- NOTE | 2023-04-02 10:40 | P.PN ---
Subjective The patient reports that yesterday while going to the bathroom he lost his balance and fell onto his right leg because it felt "rubbery". He was seen and evaluated by nursing and an x-ray of the hip and computed tomography scan of the head was obtained. These were both read as negative. This morning the patient complains of pain in the hip, but is improving. He has no other complaints. Objective - Vital Signs Vital signs: Vital Signs Temp 99.7 F H 04/02/23 07:13 Pulse 77 04/02/23 07:13 Resp 16 04/02/23 07:13 BP 101/58 04/02/23 07:13 Pulse Ox 96 04/02/23 07:13 FiO2 Intake & Output 04/01/23 04/02/23 04/02/23 18:59 06:59 18:59 Intake Total 1750 Output Total 240 570 400 Balance 1510 -570 -400 Weight 98.6 kg Intake: IV 1750 Output: Drainage 70 Right Hip 70 Urine 0 500 400 Estimated Blood Loss 240 Other: Voiding Method Urinal # Voids 2 1 - Exam The patient is sitting up at bedside in a chair. He is in no apparent distress. On inspection of the right hip there is a clean dressing over the anterior aspect of the hip with no drainage. There is a medium Hemovac drain in place it was removed. His thigh is mildly swollen but soft. He has minimal pain with passive range motion of the hip. Femoral nerve function is intact. Distally motor and sensory function are intact - Labs CBC & Chem 7: 04/02/23 05:36 04/02/23 05:36 Labs: Abnormal Lab Results - Last 24 Hours (Table) 04/02/23 04/02/23 Range/Units 05:36 05:36 WBC 13.1 H (3.8-10.6) k/uL RBC 3.68 L (4.30-5.90) m/uL Hgb 11.4 L (13.0-17.5) gm/dL Hct 34.1 L (39.0-53.0) % Neutrophils # 11.7 H (1.3-7.7) k/uL Lymphocytes # 0.5 L (1.0-4.8) k/uL Sodium 135 L (137-145) mmol/L Glucose 156 H (74-99) mg/dL Calcium 8.2 L (8.4-10.2) mg/dL Assessment and Plan Assessment: Postoperative day #1 status post right direct anterior total hip arthroplasty Plan: 1. Weight-bear as tolerated right lower extremity, up with assistance and a walker 2. 2 doses postoperative antibiotics 3. DVT prophylaxis with aspirin 81 mg twice a day 4. Appreciate internal medicine berenice operative medical management 5. Physical therapy 6. Dispo: Due to the patient's fall yesterday and his chronic use of narcotic pain medication (Percocet at baseline) I would like to keep him another night. Briefly discussed needing rehab her short-term nursing facility and the patient seems agreeable to this if needed. We will see how he does with physical therapy and reassess him tomorrow.
--- NOTE | 2023-04-02 13:14 | P.CONS ---
History of Present Illness - Reason for Consult Consult date: 04/02/23 Medical Management - History of Present Illness History of present illness; patient is a 58-year-old gentleman with past medical history significant for osteoarthritis who presented to the hospital for elective right hip total arthroplasty by orthopedic's. Patient has been dealing with this right hip pain for a while, all conservative measures had failed. Patient was being seen by orthopedic in outpatient setting and they recommended surgery for which patient was admitted to the hospital yesterday. Postoperatively the medicine team were consulted for medical management. Patient reported that while going to the bathroom yesterday he lost his balance and fell on his right leg, waiting on PT and OT evaluation REVIEW OF SYSTEMS: CONSTITUTIONAL: No fever, no malaise, no fatigue. HEENT: No recent visual problems or hearing problems. Denied any sore throat. CARDIOVASCULAR: No chest pain, orthopnea, PND, no palpitations, no syncope. PULMONARY: No shortness of breath, no cough, no hemoptysis. GASTROINTESTINAL: No diarrhea, no nausea, no vomiting, no abdominal pain. NEUROLOGICAL: No headaches, no weakness, no numbness. HEMATOLOGICAL: Denies any bleeding or petechiae. GENITOURINARY: Denies any burning micturition, frequency, or urgency. MUSCULOSKELETAL/RHEUMATOLOGICAL: Complaining of pain in right hip ENDOCRINE: Denies any polyuria or polydipsia. The rest of the 14-point review of systems is negative. PHYSICAL EXAMINATION: GENERAL: The patient is alert and oriented x3, not in any acute distress. Well developed, well nourished. HEENT: Pupils are round and equally reacting to light. EOMI. No scleral icterus. No conjunctival pallor. Normocephalic, atraumatic. No pharyngeal erythema. No thyromegaly. CARDIOVASCULAR: S1 and S2 present. No murmurs, rubs, or gallops. PULMONARY: Chest is clear to auscultation, no wheezing or crackles. ABDOMEN: Soft, nontender, nondistended, normoactive bowel sounds. No palpable organomegaly. MUSCULOSKELETAL: No joint swelling or deformity. Right hip surgical incision seen EXTREMITIES: No cyanosis, clubbing, or pedal edema. NEUROLOGICAL: Gross neurological examination did not reveal any focal deficits. SKIN: No rashes. Assessment and plan Severe right hip osteoarthritis status post right total hip arthroplasty Plan Monitor vital signs Monitor CBC Continue post op antibiotics per orthopedic Continue pain management per orthopedics Continue DVT prophylaxis per orthopedics Follow-up on PTOT recommendations Past Medical History Past Medical History: Asthma, Hyperlipidemia, Osteoarthritis (OA) Additional Past Medical History / Comment(s): Chronic back pain. History of Any Multi-Drug Resistant Organisms: None Reported Past Surgical History: Back Surgery, Cholecystectomy, Orthopedic Surgery Additional Past Surgical History / Comment(s): Left shoulder surgery, left femur surgery, bilateral carpal tunnel surgery. Past Anesthesia/Blood Transfusion Reactions: No Reported Reaction Past Psychological History: Depression Additional Psychological History / Comment(s): Pt resides alone. He states he has hx of depression but no thoughts of suicide. He states that he feels like he is "losing my mind". He is independent. Smoking Status: Never smoker Past Alcohol Use History: Abuse, Daily, Heavy Additional Past Alcohol Use History / Comment(s): Pt states in the past he drank beer-unable to state amount of daily consumption, then he started drinking over a pint a day of whiskey. Quit drinking 10/16/22. Past Drug Use History: Marijuana Additional Drug Use History / Comment(s): Quit using Marijuana 10/16/22. - Past Family History Father Family Medical History: Cancer Additional Family Medical History / Comment(s): Father from metastatic cancer/lung cancer. Mother Family Medical History: Renal Disease Additional Family Medical History / Comment(s): Mother was on dialysis. She is . Medications and Allergies Home Medications Medication Instructions Recorded Confirmed Type oxyCODONE HCL/ACETAMINOPHEN 1 tab PO QID PRN 03/29/23 03/29/23 History [Percocet 7.5-325 mg] traMADol HCL [traMADol HCL ER] 150 mg PO HS 03/29/23 04/01/23 History Allergies Allergy/AdvReac Type Severity Reaction Status Date / Time celecoxib [From Celebrex] Allergy Rash/Hives Verified 04/01/23 11:33 Physical Exam Vitals: Vital Signs Temp Pulse Resp BP Pulse Ox 04/02/23 07:13 99.7 F H 77 16 101/58 96 04/01/23 23:48 98.5 F 88 19 102/62 94 L 04/01/23 18:35 84 145/81 95 04/01/23 18:20 73 74/47 96 04/01/23 18:05 71 127/73 95 04/01/23 17:50 74 124/69 04/01/23 17:35 85 126/79 97 04/01/23 17:20 91 119/72 94 L 04/01/23 17:16 100.5 F H 76 18 131/79 96 04/01/23 16:45 76 16 124/64 96 04/01/23 16:30 82 16 143/81 95 04/01/23 16:15 81 16 169/86 98 04/01/23 16:00 85 16 158/81 100 04/01/23 15:45 97.9 F 72 14 171/66 100 04/01/23 12:35 65 15 137/77 99 04/01/23 12:29 62 15 127/70 98 04/01/23 12:04 97.2 F L 66 15 143/71 98 Intake and Output 04/01/23 04/02/23 04/02/23 22:59 06:59 14:59 Intake Total 700 Output Total 310 500 400 Balance 390 -500 -400 Intake: IV 700 Output: Drainage 70 Right Hip 70 Urine 0 500 400 Estimated Blood Loss 240 Other: Voiding Method Urinal # Voids 2 1 Weight 98.6 kg Results CBC & Chem 7: 04/02/23 05:36 04/02/23 05:36 Labs: Abnormal Lab Results - Last 24 Hours (Table) 04/02/23 04/02/23 Range/Units 05:36 05:36 WBC 13.1 H (3.8-10.6) k/uL RBC 3.68 L (4.30-5.90) m/uL Hgb 11.4 L (13.0-17.5) gm/dL Hct 34.1 L (39.0-53.0) % Neutrophils # 11.7 H (1.3-7.7) k/uL Lymphocytes # 0.5 L (1.0-4.8) k/uL Sodium 135 L (137-145) mmol/L Glucose 156 H (74-99) mg/dL Calcium 8.2 L (8.4-10.2) mg/dL
[2023-04-02] MEDS: hydrOXYzine pamoate 25 MG CAP PO PRN (14:48)
[2023-04-02] MEDS: SENNOSIDES-DOCUSATE SODIUM 1 EACH TAB PO SCH (20:47)
[2023-04-03] MEDS: LACTATED RINGERS 1,000 ML IV SCH ×3 (00:46→07:37)
[2023-04-03] MEDS: oxyCODONE-APAP 7.5-325MG 1 EACH TAB PO PRN ×4 (02:53→18:09)
[2023-04-03] MEDS: hydrOXYzine pamoate 25 MG CAP PO PRN ×3 (08:02→21:15)
[2023-04-03] MEDS: ASPIRIN 81 MG PO SCH ×2 (08:04→21:14)
--- NOTE | 2023-04-03 08:56 | P.PN ---
Subjective Progress Note Date: 04/03/23 The patient states he hurts all over. His discomfort in his right hip. He was able to get up and walk to the bathroom yesterday. Objective - Vital Signs Vital signs: Vital Signs Temp 97.8 F 04/03/23 07:35 Pulse 89 04/03/23 07:35 Resp 17 04/03/23 07:35 BP 123/70 04/03/23 07:35 Pulse Ox 95 04/03/23 07:35 FiO2 Intake & Output 04/02/23 04/03/23 04/03/23 18:59 06:59 18:59 Output Total 400 400 Balance -400 -400 Output: Urine 400 400 Other: # Voids 1 1 # Bowel Movements 1 - Exam Patient is resting comfortably in bed. On inspection of the right hip there is a clean-appearing surgical dressing. His thigh is soft. Femoral nerve function is intact. Motor and sensory function are intact distally. - Labs CBC & Chem 7: 04/02/23 05:36 04/02/23 05:36 Assessment and Plan Assessment: Postoperative day #2 status post right direct anterior total hip arthroplasty Chronic pain on Percocet at baseline Postoperative fall, postoperative day #0 Plan: Continue treatment as outlined yesterday. We discussed the patient's pain and that he will likely have a difficult time with pain control early postop due to his Percocet at baseline. He seems to understand this. Physical therapy is recommending rehab which I agree with. We will plan on making a final decision tomorrow, but we discussed he will likely need rehab. The patient seems agreeable to this
--- NOTE | 2023-04-03 13:30 | P.PN ---
Subjective Progress Note Date: 04/10/23 patient is a 58-year-old gentleman with past medical history significant for osteoarthritis who presented to the hospital for elective right hip total arthroplasty by orthopedic's. Patient has been dealing with this right hip pain for a while, all conservative measures had failed. Patient was being seen by orthopedic in outpatient setting and they recommended surgery for which patient was admitted to the hospital yesterday. Postoperatively the medicine team were consulted for medical management. Patient reported that while going to the bathroom yesterday he lost his balance and fell on his right leg, waiting on PT and OT evaluation 04/03. Patient seen and examined. States right hip pain has improved. Patient had low-grade fever overnight, afebrile after that. Latest vital signs are temperature 97.8, heart rate 89, respirations 17, blood pressure 123/70 REVIEW OF SYSTEMS: CONSTITUTIONAL: No fever, no malaise,. CARDIOVASCULAR: No chest pain, no palpitations, no syncope. PULMONARY: No shortness of breath, no cough, GASTROINTESTINAL: No diarrhea, no nausea, no vomiting, no abdominal pain. NEUROLOGICAL: No headaches, no weakness, PHYSICAL EXAMINATION: GENERAL: The patient is alert and oriented x3, not in any acute distress. Well developed, well nourished. HEENT: Pupils are round and equally reacting to light. EOMI. No scleral icterus. No conjunctival pallor. Normocephalic, atraumatic. No pharyngeal erythema. No thyromegaly. CARDIOVASCULAR: S1 and S2 present. No murmurs, rubs, or gallops. PULMONARY: Chest is clear to auscultation, no wheezing or crackles. ABDOMEN: Soft, nontender, nondistended, normoactive bowel sounds. No palpable organomegaly. MUSCULOSKELETAL: No joint swelling or deformity. EXTREMITIES: No cyanosis, clubbing, or pedal edema. Right hip surgical incision seen NEUROLOGICAL: Gross neurological examination did not reveal any focal deficits. SKIN: No rashes. Assessment and plan Severe right hip osteoarthritis status post right total hip arthroplasty Monitor vital signs Monitor CBC Monitor CMP Continue post op antibiotics per orthopedic Continue pain management per orthopedics Continue DVT prophylaxis per orthopedics Follow-up on PTOT recommendations DVT prophylaxis: Objective - Vital Signs Vital signs: Vital Signs Temp 97.8 F 04/03/23 07:35 Pulse 89 04/03/23 07:35 Resp 17 04/03/23 07:35 BP 123/70 04/03/23 07:35 Pulse Ox 95 04/03/23 07:35 FiO2 Intake & Output 04/02/23 04/03/23 04/03/23 18:59 06:59 18:59 Output Total 400 400 Balance -400 -400 Output: Urine 400 400 Other: # Voids 1 1 # Bowel Movements 1 - Labs CBC & Chem 7: 04/02/23 05:36 04/02/23 05:36
[2023-04-03] MEDS: SENNOSIDES-DOCUSATE SODIUM 1 EACH TAB PO SCH (21:18)
[2023-04-04] MEDS: oxyCODONE-APAP 7.5-325MG 1 EACH TAB PO PRN ×5 (00:17→23:04)
[2023-04-04 07:41] LABS: Basophils % (A) 0 %; Eosinophils # (A) 0.1 k/uL (0-0.7); Eosinophils % (A) 2 %; HCT 38.7 % (39.0-53.0); HGB 12.6 gm/dL (13.0-17.5); Lymphocytes # (A) 1.1 k/uL (1.0-4.8); Lymphocytes % (A) 12 %; MCH 30.5 pg (25.0-35.0); MCHC 32.4 g/dL (31.0-37.0); Mean Platelet Volume 7.1; Monocytes # (A) 0.5 k/uL (0-1.0); Monocytes % (A) 5 %; Neutrophils # (A) 7.2 k/uL (1.3-7.7); Neutrophils % (A) 79 %; Platelet Count 271 k/uL (150-450); RBC 4.12 m/uL (4.30-5.90); RDW 12.4 % (11.5-15.5); WBC 9.1 k/uL (3.8-10.6)
--- NOTE | 2023-04-04 08:38 | P.DS ---
Providers Expected date of discharge: 04/04/23 Attending physician: Bayron Cisneros Consults: 04/01/23 15:49 Consult Physician Routine Consulting Provider: Vinod Salazar Consult Reason/Comments: medical management Do you want consulting provider notified?: Yes Primary care physician: Vinod Salazar [facility] Course: This is a 58-year-old male who has been followed in our office by Dr. Cisneros for continued complaints of right hip pain due to right hip osteoarthritis. Treatment options were discussed, and patient elected to undergo a right direct anterior total hip arthroplasty. Patient was seen pre-operatively by Dr. Salazar and cleared for surgery. Patient underwent a right direct anterior total hip arthroplasty on 04/01/[address] Cisneros. The procedure was performed without complication or sequelae. The patient is doing fairly well postoperatively. Vital signs and labs are stable on postoperative day #3. Patient was examined bedside this morning with Dr. Cisneros. He is up to the bedside chair. Patient states he is doing better today and the pain in his right hip is manageable. Patient is comfortable being discharged today. Patient has no new complaints this morning. On examination, the patient is sitting up in the bedside chair in no apparent distress. He is alert and orientated 3. On inspection of the right hip, there is a clean, dry, intact surgical dressing in place. Motor and sensory function is intact of the right lower extremity. Femoral nerve function intact. The dorsalis pedis pulse is easily palpable, the right lower extremity is warm and well perfused with brisk capillary refill. Calf is soft and non-tender to palpation. Patient is discharged to subacute rehab today in good condition, pending medical clearance. Patient will follow-up with Dr. Cisneros in the office at [facility] in two weeks. Please see med rec for accurate list of discharge medication. Plan - Discharge Summary Discharge Rx Participant: Yes New Discharge Prescriptions: No Action oxyCODONE HCL/ACETAMINOPHEN [Percocet 7.5-325 mg] 1 tab PO QID PRN PRN Reason: Pain traMADol HCL [traMADol HCL ER] 150 mg PO HS Discharge Medication List oxyCODONE HCL/ACETAMINOPHEN [Percocet 7.5-325 mg] 1 tab PO QID PRN 03/29/23 [History] traMADol HCL [traMADol HCL ER] 150 mg PO HS 03/29/23 [History]
[2023-04-04] MEDS: hydrOXYzine pamoate 25 MG CAP PO PRN ×2 (08:42→20:26)
[2023-04-04] MEDS: ASPIRIN 81 MG PO SCH ×2 (08:43→20:26)
[2023-04-04] MEDS: SENNOSIDES-DOCUSATE SODIUM 1 EACH TAB PO SCH (20:27)
[2023-04-05] MEDS: hydrOXYzine pamoate 25 MG CAP PO PRN ×2 (00:59→11:22)
[2023-04-05] MEDS: oxyCODONE-APAP 7.5-325MG 1 EACH TAB PO PRN ×2 (05:38→11:21)
[2023-04-05] MEDS: ASPIRIN 81 MG PO SCH (07:55)
[2023-04-05 08:46] VITALS: BP 131/80; PULSE 79; TEMP 98.7
[2023-04-05 09:10] VITALS: RESP 16
--- NOTE | 2023-04-05 11:42 | P.PN ---
Subjective Progress Note Date: 04/05/23 This patient is a 58- year old male who is status-post right direct anterior total hip arthroplasty on 04/01/23. Today is post-op day #4. Patient is examined bedside with Dr. Cisneros. He is up to the bedside chair. Patient states his pain has improved. Patient is planning to discharge to rehab today. No new complaints or concerns. Objective - Vital Signs Vital signs: Vital Signs Temp 98.7 F 04/05/23 07:03 Pulse 79 04/05/23 07:03 Resp 16 04/05/23 07:55 BP 131/80 04/05/23 07:03 Pulse Ox 97 04/05/23 07:03 FiO2 Intake & Output 04/04/23 04/05/23 04/05/23 18:59 06:59 18:59 Intake Total 500 Balance 500 Intake: Oral 500 Other: Voiding Method Urinal Toilet Urinal # Voids 3 1 # Bowel Movements 1 - Exam On examination, patient is sitting up in the bedside chair in no apparent distress. He is alert and orientated x3. On inspection of the right hip, there is a clean, dry, intact surgical dressing in place with no bleeding or drainage through the dressing. Motor and sensory function intact RLE, femoral nerve function intact. RLE warm and well perfused. Calf non-tender. - Labs CBC & Chem 7: 04/04/23 07:15 04/02/23 05:36 Assessment and Plan Assessment: Status-post right direct anterior total hip arthroplasty on 04/01/23. Post-op day #4. Plan: - Patient will discharge to rehab today. He may continue to WBAT on operative extremity with walker. Keep operative dressing in place until follow-up in the office . Continue aspirin 81mg BID x 4 weeks for blood clot prevention. Pain medication per Dr. Salazar.
--- NOTE | 2023-04-09 02:25 | PN ---
PROGRESS NOTE DATE OF SERVICE: 04/04/2023 CHIEF COMPLAINT: Arthritis, right hip. HISTORY OF PRESENT ILLNESS: This is a gentleman, is doing fairly well. He has had no shortness of breath, chest pain, fever, chills, etc. PHYSICAL EXAMINATION: CHEST: Clear. CARDIAC: Normal. ABDOMEN: Soft and nontender. EXTREMITIES: Normal. IMPRESSION: Status post ORIF of the right hip. PLAN: Continue to follow until he goes to rehab, which may be tomorrow. MMODL / IJN: [id number] /
--- NOTE | 2023-04-09 03:31 | PN ---
PROGRESS NOTE DATE OF SERVICE: 04/05/2023 CHIEF COMPLAINT: Arthritis of the right hip. HISTORY OF PRESENT ILLNESS: This gentleman is doing well. He has had no postop problems. He has had no fever, chills, and he is going to rehab today. PHYSICAL EXAMINATION: CHEST: Clear. CARDIAC: Normal. ABDOMEN: Soft, nontender. IMPRESSION: Status post right hip replacement. PLAN: Rehab today. MMODL / IJN: [id number] /
== END 2023-04-05 12:45 ==
LOC: OR 11:03 → 4SSUR 15:35 → OR 04-04 08:57
PROVIDERS: ADMIT Orthopaedic Surgery; ATTEND Orthopaedic Surgery
DX: M16.11 Unilateral primary osteoarthritis, right hip (principal); M21.70 Unequal limb length (acquired), unspecified site; I67.2 Cerebral atherosclerosis; J45.909 Unspecified asthma, uncomplicated; E78.5 Hyperlipidemia, unspecified; G89.29 Other chronic pain; M54.9 Dorsalgia, unspecified; F10.10 Alcohol abuse, uncomplicated; F32.A Depression, unspecified; G89.18 Other acute postprocedural pain; Z90.49 Acquired absence of other specified parts of digestive tract; Z79.891 Long term (current) use of opiate analgesic; Z80.1 Family history of malignant neoplasm of trachea, bronchus and lung; Z63.4 Disappearance and death of family member; Z79.899 Other long term (current) drug therapy; Z88.8 Allergy status to other drugs, medicaments and biological substances
CPT/HCPCS: 97116; 97530; 97163; 97166; 64447; 86900; 86901; 80048; 85025 ×2; 86850; 73501; 70450; 27130; G0378 ×2; C1776; J2250; J0330; J1100; J2710; J0690 ×2; J2405; J3010; J1170 ×2; J2795; J1885; J2704; J2001

== ENCOUNTER → 2024-01-24 | Outpatient (CLI) | payer MEDICARE ==
--- NOTE | 2024-01-25 10:32 | CA ---
Transthoracic Echo Report Name: James Owens Age: 58 Gender: M : 1965 Exam Date: 01/24/2024 15:04 Exam Location: [facility] Ht (in): 68 Wt (lb): 220 Ordering Physician: Vinod Salazar MD Attending/Referring Phys: Martin VASQUEZ [employer] Lucie Molina, [facility] Procedure CPT: Indications: I45.10 UNSPECIFIED RIGHT BUNDLE-BRANCH BLOCK Cardiac Hx: Technical Quality: Fair Contrast 1: Total Dose (mL): Contrast 2: Total Dose (mL): MEASUREMENTS (Male / Female) Normal Values 2D ECHO LV Diastolic Diameter PLAX 4.1 cm 4.2 - 5.9 / 3.9 - 5.3 cm LV Systolic Diameter PLAX 2.8 cm IVS Diastolic Thickness 1.2 cm 0.6 - 1.0 / 0.6 - 0.9 cm LVPW Diastolic Thickness 1.2 cm 0.6 - 1.0 / 0.6 - 0.9 cm LV Relative Wall Thickness 0.6 RV Internal Dim ED PLAX 3.4 cm LA Systolic Diameter LX 3.2 cm 3.0 - 4.0 / 2.7 - 3.8 cm LV Diastolic Volume MOD 4C 109.1 cm??? LV Systolic Volume MOD 4C 51.3 cm??? LV Ejection Fraction MOD 4C 53.0 % LV Cardiac Index MOD 4C 1847.9 cm???/min???m??? LV Diastolic Length 4C 8.7 cm LV Systolic Length 4C 7.1 cm LV Diastolic Volume MOD 2C 99.2 cm??? LV Systolic Volume MOD 2C 49.3 cm??? LV Ejection Fraction MOD 2C 50.3 % LV Cardiac Index MOD 2C 1594.7 cm???/min???m??? LV Diastolic Length 2C 8.2 cm LV Systolic Length 2C 6.9 cm LA Volume 32.9 cm??? 18 - 58 / 22 - 52 cm??? LA Volume Index 14.8 cm???/m??? 16 - 28 cm???/m??? M-MODE Aortic Root Diameter MM 3.3 cm MV E Point Septal Separation 0.6 cm DOPPLER AV Peak Velocity 142.2 cm/s AV Peak Gradient 8.1 mmHg MV Area PHT 2.4 cm??? Mitral E Point Velocity 69.5 cm/s Mitral A Point Velocity 93.6 cm/s Mitral E to A Ratio 0.7 MV Deceleration Time 316.6 ms FINDINGS Left Ventricle Left ventricular ejection fraction is estimated at 55 %. Left ventricular cavity size normal. Mildly increased septal wall thickness. No obvious regional wall motion abnormalities. Right Ventricle Mild right ventricular dilatation. Unable to estimate the right ventricular systolic pressure. Right Atrium Normal right atrial size. Left Atrium Normal left atrial size. Mitral Valve Structurally normal mitral valve. No mitral stenosis, regurgitation or prolapse. Aortic Valve Trileaflet aortic valve. No aortic valve stenosis or regurgitation. Tricuspid Valve Structurally normal tricuspid valve. No tricuspid stenosis, regurgitation or prolapse. Pulmonic Valve Structurally normal pulmonic valve. No pulmonic regurgitation. Pericardium No pericardial effusion. Aorta Normal size aortic root and proximal ascending aorta. CONCLUSIONS Normal LV size and systolic function with mild concentric LVH. No significant abnormality on the Doppler exam. No pericardial effusion Previewed by: Dr. Lukas Gonzalez MD (Electronically Signed) Final Date: 25 January 2024 10:32
== END | disposition home or self-care (01) ==
LOC: RADECHMAIN 14:48
PROVIDERS: ATTEND Family Medicine
DX: I45.10 Unspecified right bundle-branch block (principal); I51.7 Cardiomegaly
CPT/HCPCS: 93306

== ENCOUNTER 2024-12-23 13:21 | Observation (INO) | payer MEDICARE ==
[2024-12-23] MEDS ORDERED: LORazepam 2 MG/ML INJ IV PRN (13:57)
[2024-12-23 14:28] LABS: Basophils # (A) 0.1 k/uL (0-0.2); Basophils % (A) 1 %; Eosinophils % (A) 1 %; HCT 54.4 % (39.0-53.0); HGB 18.2 gm/dL (13.0-17.5); Lymphocytes # (A) 1.5 k/uL (1.0-4.8); Lymphocytes % (A) 24 %; MCH 33.7 pg (25.0-35.0); MCHC 33.5 g/dL (31.0-37.0); MCV 100.8 fL (80.0-100.0); Mean Platelet Volume 6.7; Monocytes # (A) 0.4 k/uL (0-1.0); Monocytes % (A) 6 %; Neutrophils # (A) 4.2 k/uL (1.3-7.7); Neutrophils % (A) 66 %; Platelet Count 334 k/uL (150-450); RDW 12.7 % (11.5-15.5); WBC 6.3 k/uL (3.8-10.6)
[2024-12-23 14:42] LABS: INR 1.3 (<1.2); Partial Thromboplastin Time 26.2 sec (22.0-30.0); Prothrombin Time 13.4 sec (10.0-12.5)
[2024-12-23 14:49] LABS: ALT 94 U/L (4-49); AST 172 U/L (17-59); African American GFR (CKD) >90 (>60 ml/min/1.73 sqM); Albumin 4.6 g/dL (3.5-5.0); Alkaline Phosphatase 99 U/L (38-126); Anion Gap 14 mmol/L; Blood Urea Nitrogen 12 mg/dL (9-20); Calcium 9.2 mg/dL (8.4-10.2); Carbon Dioxide 25 mmol/L (22-30); Chloride 101 mmol/L (98-107); Glucose 207 mg/dL (74-99); Lipase 117 U/L (23-300); Non-African American GFR(CKD) >90 (>60 ml/min/1.73 sqM); Potassium 3.6 mmol/L (3.5-5.1); Sodium 140 mmol/L (137-145); Total Bilirubin 1.4 mg/dL (0.2-1.3); Total Protein 7.5 g/dL (6.3-8.2)
[2024-12-23] MEDS: LORazepam 2 MG/ML INJ IV PRN ×2 (14:54→16:47)
[2024-12-23] MEDS: THIAMINE 100 MG/ML 2 ML VIAL IM STA (14:55)
[2024-12-23] MEDS: SODIUM CHLORIDE 0.9% 1,000 ML IV ONE (14:55)
[2024-12-23 15:27] LABS: Alcohol 366 mg/dL
[2024-12-23 16:10] LABS: Appearance,Urine Cloudy (Clear); Bilirubin,Urine Negative (Negative); Blood,Urine Trace (Negative); Color,Urine Yellow; Glucose,Urine (UA) Negative (Negative); Hyaline Casts,Urine 24 /lpf (0-2); Ketones,Urine Negative (Negative); Leukocyte Esterase,Urine Negative (Negative); Mucus,Urine Moderate /hpf; Nitrite,Urine Negative (Negative); Protein,Urine 1+ (Negative); RBC,Urine 1 /hpf (0-5); Specific Gravity,Urine 1.028 (1.001-1.035); Urobilinogen,Urine <2.0 mg/dL (<2.0); WBC,Urine 2 /hpf (0-5)
--- NOTE | 2024-12-23 16:15 | ED ---
General Adult HPI - General Chief complaint: Alcohol Stated complaint: ETOH Time Seen by Provider: 12/23/24 13:49 Source: patient, family, RN notes reviewed, old records reviewed Mode of arrival: ambulatory Limitations: altered mental status - History of Present Illness Initial comments: Patient is a 59-year-old male who presents emergency department with his daughter over concern for alcohol abuse as well as desire to quit. Does have a history of alcohol drawl's. Also endorsed suicidal statements to his daughter, stating wanted to kill himself which is why has been drinking so much. Currently has no acute complaints. States he has been drinking today it is unknown last time he had a beverage. Denies any other drug use. Has no other acute complaints at this time. Presents for further evaluation at this time. Denies homicidal ideations, times complaints. Denies hallucinations. - Related Data Home Medications Medication Instructions Recorded Confirmed oxyCODONE HCL/ACETAMINOPHEN 1 tab PO QID PRN 03/29/23 03/29/23 [Percocet 7.5-325 mg] Previous Rx's Medication Instructions Recorded Aspirin 81 mg PO BID 30 Days #60 tab 04/04/23 Diclofenac Sodium [Voltaren] 75 mg PO BID 30 Days #60 tab 04/04/23 Docusate [Colace] 100 mg PO BID #60 capsule 04/04/23 Omeprazole 40 mg PO DAILY 30 Days #30 cap 04/04/23 oxyCODONE-APAP 7.5-325MG [Percocet 1 each PO Q6HR PRN #120 tab 04/05/23 7.5-325 mg] Allergies Allergy/AdvReac Type Severity Reaction Status Date / Time celecoxib [From Celebrex] Allergy Rash/Hives Verified 04/01/23 11:33 Review of Systems ROS Statement: Those systems with pertinent positive or pertinent negative responses have been documented in the HPI. Review of Systems: CONST: Denies fever EYES: Denies blurry vision ENT: Denies nasal congestion C/V: Denies Chest pain RESP: Denies shortness of breath GI: Denies abdominal pain : Denies dysuria SKIN: Denies rash. MSK: Denies joint pain. NEURO: Denies headache ROS Other: All systems not noted in ROS Statement are negative. Past Medical History Past Medical History: Asthma, Hyperlipidemia Additional Past Medical History / Comment(s): chronic back pain History of Any Multi-Drug Resistant Organisms: None Reported Past Surgical History: Back Surgery, Orthopedic Surgery Additional Past Surgical History / Comment(s): shoulders, femur Past Anesthesia/Blood Transfusion Reactions: No Reported Reaction Past Psychological History: Depression Smoking Status: Never smoker Past Alcohol Use History: Abuse, Daily, Heavy Past Drug Use History: Marijuana - Past Family History Father Family Medical History: Cancer Additional Family Medical History / Comment(s): Father from metastatic cancer/lung cancer. Mother Family Medical History: Renal Disease Additional Family Medical History / Comment(s): Mother was on dialysis. She is . General Exam - General Exam Comments Initial Comments: General: Appears in no acute distress. No evidence of alcohol withdrawals at this time. HEAD: Normal with no signs of head trauma. EYES: PERRLA, EOMI, conjunctiva normal, no discharge. ENT: Hearing grossly intact, normal oropharynx. RESPIRATORY: Clear breath sounds bilaterally. No wheezes, rales, or rhonchi. C/V: Regular rate and rhythm. S1 and S2 auscultated, no edema, peripheral pulses 2+ and intact throughout ABD: Abd is soft, nontender, nondistended EXT: No obvious deformity. SKIN: No rashes or lesions observed on exposed skin. NEURO: Alert and oriented x 4. Limitations: altered mental status Course Vital Signs 12/23/24 13:27 Temperature 98.5 F Pulse Rate 101 H Respiratory 18 Rate Blood Pressure 139/87 O2 Sat by Pulse 96 Oximetry Medical Decision Making - Medical Decision Making Was pt. sent in by a medical professional or institution (, PA, SECURITY AMBASSADOR, urgent care, hospital, or halfway...) When possible be specific @ -No Did you speak to anyone other than the patient for history (EMS, parent, family, police, friend...)? What history was obtained from this source @ -Spoke with patient's daughter who petitioned the patient. Concern for suicidal statements made. Did you review nursing and triage notes (agree or disagree)? Why? @ -I reviewed and agree with nursing and triage notes Were old charts reviewed (outside hosp., previous admission, EMS record, old EKG, old radiological studies, urgent care reports/EKG's, halfway records)? Report findings @ -Reviewed prior EKGs from 2022. No significant change on today's. Differential Diagnosis (chest pain, altered mental status, abdominal pain women, abdominal pain men, vaginal bleeding, weakness, fever, dyspnea, syncope, headache, dizziness, GI bleed, back pain, seizure, CVA, palpatations, mental health, musculoskeletal)? @ -Alcohol intoxication, dehydration, alcohol withdrawals, suicidal statements. This list is not all inclusive. EKG interpreted by me (3pts min.). @ -As above X-rays interpreted by me (1pt min.). @ -None done CT interpreted by me (1pt min.). @ -None done U/S interpreted by me (1pt. min.). @ -None done What testing was considered but not performed or refused? (CT, X-rays, U/S, labs)? Why? @ -None What meds were considered but not given or refused? Why? @ -None Did you discuss the management of the patient with other professionals (professionals i.e. , PA, SECURITY AMBASSADOR, lab, RT, psych nurse, perinatal social worker, mold stamper and repairer, teacher, policy officer, counseling case manager)? Give summary @ -Discussed with Dr. Salazar who accepted the admission. Was smoking cessation discussed for >3mins.? @ -No Was critical care preformed (if so, how long)? @ -Yes, 33 minutes. Were there social determinants of health that impacted care today? How? (Homelessness, low income, unemployed, alcoholism, drug addiction, transportation, low edu. Level, literacy, decrease access to med. care, residential, rehab)? @ -No Was there de-escalation of care discussed even if they declined (Discuss DNR or withdrawal of care, Hospice)? DNR status @ -No What co-morbidities impacted this encounter? (DM, HTN, Smoking, COPD, CAD, Cancer, CVA, ARF, Chemo, Hep., AIDS, mental health diagnosis, sleep apnea, morbid obesity)? @ -Alcohol abuse Was patient admitted / discharged? Hospital course, mention meds given and route, prescriptions, significant lab abnormalities, going to OR and other pertinent info. @ -Patient presents for suicidal statements made to daughter and was petition for mental health evaluation. Sitter placed. Suicide precautions ordered. Patient is also acutely intact with alcohol and has history of withdrawal. Will obtain alcohol intoxication workup as well. Vitals are within acceptable limits. Patient was in agreement this plan. Vitals within acceptable limits. Patient administered IV fluids. Patient placed on CIWA protocol. Currently no evidence of alcohol chills at this time. EKG showed no signs of acute ischemia. Laboratory studies are remarkable for alcohol intoxication with a level of 366. Remainder the labs unremarkable. I discussed results with the patient. He will be admitted at this time. Patient admitted to his PCP, Dr. Salazar with psychiatry consult. Patient was in agreement this plan. Spoke with Dr. Salazar who accepted the admission. Undiagnosed new problem with uncertain prognosis? @ -No Drug Therapy requiring intensive monitoring for toxicity (Heparin, Nitro, Insulin, Cardizem)? @ -No Were any procedures done? @ -No Diagnosis/symptom? @ -Alcohol intoxication, suicidal ideations, petitioned Acute, or Chronic, or Acute on Chronic? @ -Acute Uncomplicated (without systemic symptoms) or Complicated (systemic symptoms)? @ -Complicated Side effects of treatment? @ -No Exacerbation, Progression, or Severe Exacerbation? @ -No Poses a threat to life or bodily function? How? (Chest pain, USA, PA, pneumonia, PE, COPD, DKA, ARF, appy, cholecystitis, CVA, Diverticulitis, Homicidal, Suicidal, threat to staff... and all critical care pts) @ -Yes - Lab Data Result diagrams: 12/23/24 14:23 12/23/24 14:23 Lab Results 12/23/24 12/23/24 12/23/24 Range/Units 14:23 14:23 14:23 WBC 6.3 (3.8-10.6) k/uL RBC 5.40 (4.30-5.90) m/uL Hgb 18.2 H (13.0-17.5) gm/dL Hct 54.4 H (39.0-53.0) % MCV 100.8 H (80.0-100.0) fL MCH 33.7 (25.0-35.0) pg MCHC 33.5 (31.0-37.0) g/dL RDW 12.7 (11.5-15.5) % Plt Count 334 (150-450) k/uL MPV 6.7 Neutrophils % 66 % Lymphocytes % 24 % Monocytes % 6 % Eosinophils % 1 % Basophils % 1 % Neutrophils # 4.2 (1.3-7.7) k/uL Lymphocytes # 1.5 (1.0-4.8) k/uL Monocytes # 0.4 (0-1.0) k/uL Eosinophils # 0.0 (0-0.7) k/uL Basophils # 0.1 (0-0.2) k/uL PT 13.4 H (10.0-12.5) sec INR 1.3 H (<1.2) APTT 26.2 (22.0-30.0) sec Sodium 140 (137-145) mmol/L Potassium 3.6 (3.5-5.1) mmol/L Chloride 101 (98-107) mmol/L Carbon Dioxide 25 (22-30) mmol/L Anion Gap 14 mmol/L BUN 12 (9-20) mg/dL Creatinine 0.68 (0.66-1.25) mg/dL Est GFR (CKD-EPI)AfAm >90 (>60 ml/min/1.73 sqM) Est GFR (CKD-EPI)NonAf >90 (>60 ml/min/1.73 sqM) Glucose 207 H (74-99) mg/dL Calcium 9.2 (8.4-10.2) mg/dL Total Bilirubin 1.4 H (0.2-1.3) mg/dL AST 172 H (17-59) U/L ALT 94 H (4-49) U/L Alkaline Phosphatase 99 (38-126) U/L Total Protein 7.5 (6.3-8.2) g/dL Albumin 4.6 (3.5-5.0) g/dL Lipase 117 (23-300) U/L Urine Color Urine Appearance (Clear) Urine pH (5.0-8.0) Ur Specific [place] (1.001-1.035) Urine Protein (Negative) Urine Glucose (UA) (Negative) Urine Ketones (Negative) Urine Blood (Negative) Urine Nitrite (Negative) Urine Bilirubin (Negative) Urine Urobilinogen (<2.0) mg/dL Ur Leukocyte Esterase (Negative) Urine RBC (0-5) /hpf Urine WBC (0-5) /hpf Hyaline Casts (0-2) /lpf Urine Mucus (None) /hpf Serum Alcohol 366 H* mg/dL 12/23/24 Range/Units 15:52 WBC (3.8-10.6) k/uL RBC (4.30-5.90) m/uL Hgb (13.0-17.5) gm/dL Hct (39.0-53.0) % MCV (80.0-100.0) fL MCH (25.0-35.0) pg MCHC (31.0-37.0) g/dL RDW (11.5-15.5) % Plt Count (150-450) k/uL MPV Neutrophils % % Lymphocytes % % Monocytes % % Eosinophils % % Basophils % % Neutrophils # (1.3-7.7) k/uL Lymphocytes # (1.0-4.8) k/uL Monocytes # (0-1.0) k/uL Eosinophils # (0-0.7) k/uL Basophils # (0-0.2) k/uL PT (10.0-12.5) sec INR (<1.2) APTT (22.0-30.0) sec Sodium (137-145) mmol/L Potassium (3.5-5.1) mmol/L Chloride (98-107) mmol/L Carbon Dioxide (22-30) mmol/L Anion Gap mmol/L BUN (9-20) mg/dL Creatinine (0.66-1.25) mg/dL Est GFR (CKD-EPI)AfAm (>60 ml/min/1.73 sqM) Est GFR (CKD-EPI)NonAf (>60 ml/min/1.73 sqM) Glucose (74-99) mg/dL Calcium (8.4-10.2) mg/dL Total Bilirubin (0.2-1.3) mg/dL AST (17-59) U/L ALT (4-49) U/L Alkaline Phosphatase (38-126) U/L Total Protein (6.3-8.2) g/dL Albumin (3.5-5.0) g/dL Lipase (23-300) U/L Urine Color Yellow Urine Appearance Cloudy (Clear) Urine pH 6.0 (5.0-8.0) Ur Specific [place] 1.028 (1.001-1.035) Urine Protein 1+ H (Negative) Urine Glucose (UA) Negative (Negative) Urine Ketones Negative (Negative) Urine Blood Trace H (Negative) Urine Nitrite Negative (Negative) Urine Bilirubin Negative (Negative) Urine Urobilinogen <2.0 (<2.0) mg/dL Ur Leukocyte Esterase Negative (Negative) Urine RBC 1 (0-5) /hpf Urine WBC 2 (0-5) /hpf Hyaline Casts 24 H (0-2) /lpf Urine Mucus Moderate H (None) /hpf Serum Alcohol mg/dL - EKG Data -: EKG Interpreted by Me EKG Comments: 12-lead Electrocardiogram Interpretation Note EKG was reviewed and interpreted by myself. 12-lead ECG performed at 1350 is interpreted by me as revealing sinus tachycardia with right bundle branch block morphology at a rate of 102 beats per minute. [place] is normal. MO interval is 142 ms, QRS duration is 138 ms, QTc is 4 1031 ms.. There were no ST or T wave abnormalities to suggest myocardial ischemia or injury. R wave progression across the precordium was satisfactory. By my interpretation this EKG is non-diagnostic for acute ischemia. No significant change with compared with EKG from March 2023. Disposition Clinical Impression: Alcohol intoxication, Suicidal ideations Disposition: ADMITTED IP TO THIS HOSP Condition: Serious Referrals: Vinod Salazar MD [Primary Care Provider] - 1-2 days Time of Disposition: 16:15
[2024-12-23] MEDS ORDERED: NALOXONE 0.4 MG/ML 1 ML VIAL IV PRN (16:16)
[2024-12-23] MEDS ORDERED: ACETAMINOPHEN TAB 325 MG TAB PO PRN (16:16)
[2024-12-23] MEDS: SODIUM CHLORIDE 0.9% 1,000 ML IV SCH (16:47)
[2024-12-23] MEDS ORDERED: LORazepam 1 MG/0.5 ML VIAL IV PRN ×2 (18:15→18:16)
[2024-12-23] MEDS: LORazepam 1 MG/0.5 ML VIAL IV PRN (19:19)
[2024-12-23] MEDS: ONDANSETRON 4 MG/2 ML VIAL IVP PRN (21:01)
[2024-12-24] MEDS: THIAMINE 100 MG TAB PO SCH (07:55)
[2024-12-24] MEDS ORDERED: ALBUTEROL NEBULIZED 2.5 MG/3 ML INHALATION PRN (10:29)
[2024-12-24 10:44] LABS: Basophils # (A) 0.08 X 10*3/uL (0.00-0.10); Basophils % (A) 1.5 %; Eosinophils # (A) 0.04 X 10*3/uL (0.04-0.35); Eosinophils % (A) 0.8 %; HCT 42.8 % (39.6-50.0); HGB 14.8 g/dL (13.0-17.0); Lymphocytes % (A) 22.9 %; MCH 33.9 pg (27.0-32.0); MCHC 34.6 g/dL (32.0-37.0); MCV 98.2 FL (80.0-97.0); Mean Platelet Volume 9.3 FL (9.5-12.2); Monocytes # (A) 0.57 X 10*3/uL (0.20-1.00); Monocytes % (A) 10.9 %; NRBC Per 100 WBC 0 X 10*3/uL (0.00-0.01); Neutrophils # (A) 3.34 X 10*3/uL (1.80-7.70); Neutrophils % (A) 63.5 %; Platelet Count 232 X 10*3/uL (140-440); RBC 4.36 X 10*6/uL (4.40-5.60); RDW 12.3 % (11.5-14.5); WBC 5.25 X 10*3/uL (4.50-10.00)
[2024-12-24 10:47] LABS: ALT 85 U/L (10-49); AST 149 U/L (14-35); Albumin 3.7 g/dL (3.8-4.9); Albumin/Globulin Ratio 1.76 Ratio (1.60-3.17); Alkaline Phosphatase 90 U/L (41-126); BUN/Creat Ratio 15.33 Ratio (12.00-20.00); Blood Urea Nitrogen 9.2 mg/dL (9.0-27.0); Calcium 7.8 mg/dL (8.7-10.3); Carbon Dioxide 24.4 mmol/L (21.6-31.8); Chloride 100 mmol/L (96-109); Globulin 2.1 g/dL (1.6-3.3); Glucose 161 mg/dL (70-110); Potassium 3.4 mmol/L (3.5-5.5); Sodium 137 mmol/L (135-145); Total Bilirubin 1.5 mg/dL (0.3-1.2); Total Protein 5.8 g/dL (6.2-8.2)
[2024-12-24] MEDS ORDERED: MAG HYDROX/AL HYDROX/SIMETH 30 ML CUP PO PRN (11:09)
[2024-12-24] MEDS: PANTOPRAZOLE 40 MG TABLET PO SCH (11:50)
--- NOTE | 2024-12-24 14:26 | P.CN ---
Psychiatric Consult - . Consult date: 12/24/24 Consult:: 12/24/24 13:50 IDENTIFYING DATA: This patient is a 59-year-old male, , 3 kids, lives alone in a house, collects SSD. REASON FOR REFERRAL: Psychiatry was consulted for suicidal ideations HISTORY OF PRESENT ILLNESS: The patient presented to the hospital yesterday, patient's blood alcohol level was 366, LFTs were elevated. Patient was brought into the hospital came in with his daughter for concerns of alcohol abuse claiming that he want to quit drinking, has a history of withdrawals drink significantly. Patient was also endorsing suicidal ideations at that time. Patient was admitted to the medical floor seen by communications writer today for psychiatric consultation. Patient was seen at the bedside he had a one-to-one sitter. He states that it "I let it get out of control" referring to his drinking which has been increasing for the past 2 or 3 years. He claims that he is not able to stay sober on his own, has been having some cravings. Claims that he drinks about 2/5 of whiskey a day. States that his last drink was Tuesday. Claims that he wants to get sober to be more in his daughter's life who is getting in [place] soon. And also having tremors. Denies any history of seizures or DTs. Endorsing depression, denying any paranoia, states that his sleep and appetite are poor. At this time patient denies any suicidal or homical ideations, intent or plan. States that he is still having cravings, is having headaches at this time endorsing severe anxiety feeling restless. Denies any auditory or visual hallucinations and denies any paranoia or delusions. Patients admits to using alcohol as noted above, smokes marijuana regularly, denies any cigarette use or any other recreational drug use. PAST PSYCHIATRIC HISTORY: Patient has a a history of alcohol use, depression. Patient claims that he is currently on Wellbutrin 150 mg XL daily prescribed by his primary care physician. Patient denies any previous psychiatric hospitalizations. Patient denies any psychiatric outpatient follow-up. Patient denies any history of suicide attempts in the past. Past Medical History: Asthma, Hyperlipidemia Additional Past Medical History / Comment(s): chronic back pain History of Any Multi-Drug Resistant Organisms: None Reported Past Surgical History: Back Surgery, Orthopedic Surgery Additional Past Surgical History / Comment(s): shoulders, femur Past Anesthesia/Blood Transfusion Reactions: No Reported Reaction Past Psychological History: Depression Smoking Status: Never smoker Past Alcohol Use History: Abuse, Daily, Heavy Past Drug Use History: Marijuana ALLERGIES: as per EMR. CHEMICAL DEPENDENCY HISTORY: as per HPI. FAMILY PSYCHIATRIC/SUBSTANCE USE HISTORY: Denies SOCIAL HISTORY: Patient was born and raised in the [facility]. 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 This denies any legal history however did state that he had 1 DUI in the past. He is currently he has 3 kids he lives alone in a house, collect Social Security disability. MENTAL STATUS EXAM: General Appearance: Patient appears to be mildly overweight, mildly disheveled, stated age is alert, a bit restless and anxious. Patient appears to have fair hygiene and grooming wearing hospital gown with fair eye contact. Behavior: Patient is lying in bed without any agitated behavior. A bit anxious and restless Speech: Patient's speech is fluent and nonpressured. Hesitant at times Mood/Affect: Patient reports their mood is "mainly anxious", affect is congruent Suicidality/Homicidality: Patient denies having any suicidal or homicidal ideation intent or plan. Perceptions: Patient denies any visual hallucinations and denies any auditory hallucinations Though content/process: There is no evidence of any delusional thought content and thought process is linear and goal-directed. Oriented, focused on future oriented, focused on his withdrawal symptoms and anxiety orientation: AOX3, grossly intact for the purposes of this session Judgment and insight: fair IMPRESSIONS: Alcohol use disorder severe dependence, currently in withdrawal depressive disorder NOS cannabis use disorder PLAN: -At this time patient DOES NOT meet criteria for inpatient psychiatric admission. -Would recommend the following medication changes/additions: Start Librium 25 mg 4 times daily with plan to taper down for alcohol withdrawal, hold for sedation. Zoloft 25 mg now increasing to 50 mg daily starting tomorrow for mood/anxiety, Remeron 15 mg nightly for mood/insomnia. Due to patient's elevated LFTs can wait till this recovers in the next couple of days to start naltrexone p.o. 50 mg daily for alcohol cravings. -CIWA protocol with PRN Ativan for alcohol withdrawal. Continue to monitor vital signs. -Can discontinue 1:1 sitter at this time as patient is not currently an imminent threat to themselves -stucco worker to provide patient with outpatient mental health/psychiatry resources for appropriate follow up upon discharge -Special Education Professional spoke with patient about substance abuse and the harmful effects on medical and mental health, patient verbally understood and agreed. -stucco worker to provide patient substance use treatment resources including AA/NA meetings in the community. -stucco worker to provide patient with access line number to call for inpatient substance rehab -Communicated plan to patient's nurse -Will continue to follow along if needed -Please contact with any questions. 12/24/24 14:18
[2024-12-24] MEDS: chlordiazePOXIDE 25 MG CAP PO SCH ×2 (16:06→23:48)
[2024-12-24] MEDS: SERTRALINE 25 MG TAB PO ONE (16:06)
[2024-12-24] MEDS: MIRTAZAPINE 15 MG TAB PO SCH (20:20)
--- NOTE | 2024-12-24 21:14 | HP ---
HISTORY AND PHYSICAL CHIEF COMPLAINT: Acute alcohol intoxication. HISTORY OF PRESENT ILLNESS: This is another admission for this 59-year-old white male. He came to the emergency room intoxicated and impending DTs. He was recently hospitalized for the same thing. REVIEW OF SYSTEMS: He denies chest pain, abdominal pain, focal neurologic problems, etc. Past medical history, family history, and personal and social histories are otherwise unremarkable and unchanged. PHYSICAL EXAMINATION: VITAL SIGNS: He has sinus tachycardia of 105. Pulse was 136/90. GENERAL: Face was flushed. HEAD, EARS, EYES, NOSE, MOUTH AND THROAT: Otherwise normal. CHEST: Clear. CARDIAC: Unremarkable. ABDOMEN: Soft and nontender. EXTREMITIES: Normal. NEUROLOGICAL: He is intact. ASSESSMENT: He is admitted to the hospital with diagnoses of, 1. Acute alcohol intoxication. 2. Impending delirium tremens. 3. History of chronic back pain. 4. Hypertension. PLAN: 1. Bed rest. 2. IV fluids. 3. [facility] protocol. DEWAYNE / YEIMI: [id number] /
[2024-12-25] MEDS: SERTRALINE 50 MG TAB PO SCH (08:24)
[2024-12-25] MEDS: cloNIDine HCL 0.1 MG TAB PO SCH (12:24)
[2024-12-25] MEDS: POTASSIUM CHLORIDE ER 20 MEQ TAB.ER PO SCH (12:24)
--- NOTE | 2024-12-25 21:09 | PN ---
PROGRESS NOTE DATE OF SERVICE: 12/25/2024 CHIEF COMPLAINT: Acute alcohol intake, intoxication, and DTs. HISTORY OF PRESENT ILLNESS: This gentleman is doing fairly well. He is still slightly tremulous, but getting better. PHYSICAL EXAMINATION: VITAL SIGNS: Normal, except for a temperature of 100.1. CHEST: Clear. CARDIAC: Normal. ABDOMEN: Soft, nontender. IMPRESSION: 1. Delirium tremens. 2. Acute on chronic alcoholism. 3. Hypertension. 4. Hypokalemia. PLAN: 1. Catapres to help manage the blood pressure. 2. Potassium 20 mEq twice a day for hypokalemia. 3. Probably home tomorrow. MMODL / IJN: [id number] /
--- NOTE | 2024-12-25 21:23 | PN ---
PROGRESS NOTE DATE OF SERVICE: 12/24/2024 CHIEF COMPLAINT: Acute alcohol intoxication and DTs. HISTORY OF PRESENT ILLNESS: This gentleman is in DTs. He is very tremulous. He is not confused. PHYSICAL EXAMINATION: VITAL SIGNS: Blood pressure is slightly elevated. CHEST: Clear. CARDIAC EXAM: Normal. ABDOMEN: Soft, nontender. IMPRESSION: 1. Acute alcohol intoxication. 2. Delirium tremens. 3. Hypertension. PLAN: Continue with [facility] protocol. MMODL / WALDON: [id number] /
[2024-12-26 07:58] VITALS: BP 152/66; PULSE 86; RESP 18; TEMP 98.4
--- NOTE | 2024-12-26 21:36 | DS ---
DISCHARGE SUMMARY CHIEF COMPLAINT: Acute alcohol intoxication and DTs. HISTORY OF PRESENT ILLNESS AND PHYSICAL EXAMINATION: Details of this man's history and physical can be found in the initial workup. LABORATORY STUDIES: While he was in the hospital, he had laboratory studies, details of which can be found in the laboratory section of his chart. COURSE IN THE HOSPITAL: After admission, he was placed on bedrest, started on intravenous fluids and the CIWA protocol. He did go into DTs. He slowly improved and by the morning of the , he was doing well and was felt that he could go home. He will go home on his usual activity, regular diet, and antidepressants and be followed up in several days. FINAL DIAGNOSES: 1. Acute alcohol intoxication. 2. Delirium tremens. 3. Chronic alcoholism. 4. Depression. 5. Hypertension. OPERATIONS: None. CONSULTATION: None. He is improved. DEWAYNE / YEIMI: [id number] /
== END 2024-12-26 11:35 | disposition home or self-care (01) ==
LOC: EC 13:21 → 6NMEDSUR 16:18
PROVIDERS: ADMIT Family Medicine; ATTEND Family Medicine
DX: F10.231 Alcohol dependence with withdrawal delirium (principal); F10.229 Alcohol dependence with intoxication, unspecified; E87.6 Hypokalemia; I10 Essential (primary) hypertension; I45.10 Unspecified right bundle-branch block; Y90.8 Blood alcohol level of 240 mg/100 ml or more; F12.90 Cannabis use, unspecified, uncomplicated; G47.00 Insomnia, unspecified; R45.851 Suicidal ideations; F32.A Depression, unspecified; F41.9 Anxiety disorder, unspecified; G89.29 Other chronic pain; M54.9 Dorsalgia, unspecified; R79.89 Other specified abnormal findings of blood chemistry; Z79.82 Long term (current) use of aspirin; Z79.1 Long term (current) use of non-steroidal anti-inflammatories (NSAID); Z79.899 Other long term (current) drug therapy; Z88.6 Allergy status to analgesic agent; Z74.3 Need for continuous supervision
CPT/HCPCS: 96376 ×5; 96361 ×2; 96375; 82075; 96372; 96374; 99291; 36415; 93005; 80053 ×2; 83690; 85025 ×2; 85610; 85730; 81001; 80320; G0378 ×4; J2060 ×4; J3411; J2405 ×3; 99285

== ENCOUNTER 2025-01-22 18:23 | Observation (INO) | payer MEDICARE ==
--- NOTE | 2025-01-22 18:54 | ED ---
Alcohol HPI - General Chief Complaint: Extremity Problem,Nontraumatic Stated Complaint: Numbness in Left Hand Time Seen by Provider: 01/22/25 18:34 Source: patient, RN notes reviewed, old records reviewed Mode of arrival: wheelchair Limitations: no limitations - History of Present Illness Initial Comments: This is a 59-year-old male to the ER for evaluation this patient presents today for evaluation regards to severe alcohol withdrawal with left arm numbness and tingling. Patient states he could have passed out last night on his left arm unsure of does not remember has been drinking a significant amount of alcohol lately. 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 Previous Visits for Alcohol Intoxication?: Yes Recent Trauma: Yes Associated Symptoms: nausea, vomiting Treatments Prior to Arrival: none Chronic Alcohol Use: Yes - Related Data Home Medications Medication Instructions Recorded Confirmed oxyCODONE HCL/ACETAMINOPHEN 1 tab PO QID PRN 03/29/23 01/22/25 [Percocet 7.5-325 mg] Albuterol Sulfate [Ventolin HFA] 2 puff INHALATION RT-QID PRN 12/23/24 01/22/25 Loratadine [Claritin] 10 mg PO DAILY 12/23/24 01/22/25 Montelukast [Singulair] 10 mg PO HS 12/23/24 01/22/25 traZODone HCL [Desyrel] 50 mg PO HS 12/23/24 01/22/25 ALPRAZolam [Xanax] 0.25 mg PO HS 01/22/25 01/22/25 Previous Rx's Medication Instructions Recorded Mirtazapine [Remeron] 15 mg PO HS #10 tab 12/26/24 Pantoprazole [Protonix] 40 mg PO AC-BID #20 tab 12/26/24 Thiamine [Vitamin B-1] 100 mg PO BID #60 tab 12/26/24 Allergies Allergy/AdvReac Type Severity Reaction Status Date / Time celecoxib [From Celebrex] Allergy Rash/Hives Verified 01/22/25 19:38 Review of Systems ROS Statement: Those systems with pertinent positive or pertinent negative responses have been documented in the HPI. ROS Other: All systems not noted in ROS Statement are negative. Past Medical History Past Medical History: Asthma, Hyperlipidemia Additional Past Medical History / Comment(s): chronic back pain History of Any Multi-Drug Resistant Organisms: None Reported Past Surgical History: Back Surgery, Joint Replacement, Orthopedic Surgery Additional Past Surgical History / Comment(s): shoulders, femur, R hip Past Anesthesia/Blood Transfusion Reactions: No Reported Reaction Past Psychological History: Anxiety, Depression Smoking Status: Never smoker, Smoker, current status unknown Past Alcohol Use History: Abuse, Daily, Heavy Past Drug Use History: Marijuana - Past Family History Father Family Medical History: Cancer Additional Family Medical History / Comment(s): Father from metastatic cancer/lung cancer. Mother Family Medical History: Renal Disease Additional Family Medical History / Comment(s): Mother was on dialysis. She is . General Exam Limitations: no limitations General appearance: alert, in no apparent distress Head exam: Present: atraumatic, normocephalic, normal inspection Eye exam: Present: normal appearance, PERRL, EOMI. Absent: scleral icterus, conjunctival injection, periorbital swelling ENT exam: Present: normal exam, mucous membranes moist Neck exam: Present: normal inspection. Absent: tenderness, meningismus, lymphadenopathy Respiratory exam: Present: normal lung sounds bilaterally. Absent: respiratory distress, wheezes, rales, rhonchi, stridor Cardiovascular Exam: Present: regular rate, normal rhythm, normal heart sounds. Absent: systolic murmur, diastolic murmur, rubs, gallop, clicks GI/Abdominal exam: Present: soft, normal bowel sounds. Absent: distended, tenderness, guarding, rebound, rigid Extremities exam: Present: normal inspection, full ROM, normal capillary refill. Absent: tenderness, pedal edema, joint swelling, calf tenderness Back exam: Present: normal inspection Neurological exam: Present: alert, oriented X3, CN II-XII intact Psychiatric exam: Present: normal affect, normal mood Skin exam: Present: warm, dry, intact, normal color. Absent: rash Course Vital Signs 01/22/25 01/22/25 01/22/25 18:27 20:11 21:28 Temperature 99.3 F Pulse Rate 113 H 97 91 Respiratory 18 18 18 Rate Blood Pressure 160/82 134/92 128/85 O2 Sat by Pulse 99 98 98 Oximetry - Reevaluation(s) Reevaluation #1: 01/22/25 20:11 Medical records reviewed Reevaluation #2: 01/22/25 20:12 Patient symptoms unchanged Reevaluation #3: 01/22/25 20:12 Results questions answered Reevaluation #4: Was pt. sent in by a medical professional or institution ([facility]ARCEL[facility] Strong, SPECIAL NEEDS TUTOR, urgent care, hospital, or prison...) When possible be specific @ -no Did you speak to anyone other than the patient for history (EMS, parent, family, police, friend...)? What history was obtained from this source @ -no Did you review nursing and triage notes (agree or disagree)? Why? @ -agree Are old charts reviewed (outside hosp., previous admission, EMS record, old EKG, old radiological studies, urgent care reports/EKG's, prison records)? Report findings @ -yes Differential Diagnosis (chest pain, altered mental status, abdominal pain women, abdominal pain men, vaginal bleeding, weakness, fever, dyspnea, syncope, headache, dizziness, GI bleed, back pain, seizure, CVA, palpatations, mental health, musculoskeletal)? @ -prior EKG interpreted by me (3pts min.). @ -yes X-rays interpreted by me (1pt min.). @ -no CT interpreted by me (1pt min.). @ -no U/S interpreted by me (1pt. min.). @ -no What testing was considered but not performed or refused? (CT, X-rays, U/S, labs)? Why? @ -none What meds were considered but not given or refused? Why? @ -none Did you discuss the management of the patient with other professionals (professionals i.e. AMRCEL[facility] Strong, SPECIAL NEEDS TUTOR, lab, RT, psych nurse, social media coordinator, telephone surveyor, teacher, chief security and safety officer, telephonic case manager)? Give summary @ -no Was smoking cessation discussed for >3mins.? @ -no Was critical care preformed (if so, how long)? @ -no Were there social determinants of health that impacted care today? How? (Homelessness, low income, unemployed, alcoholism, drug addiction, transportation, low edu. Level, literacy, decrease access to med. care, fdc, rehab)? @ -none Was there de-escalation of care discussed even if they declined (Discuss DNR or withdrawal of care, Hospice)? DNR status @ -no What co-morbidities impacted this encounter? (DM, HTN, Smoking, COPD, CAD, Cancer, CVA, ARF, Chemo, Hep., AIDS, mental health diagnosis, sleep apnea, morb id obesity)? @ -none Was patient admitted / discharged? Hospital course, mention meds given and rou te, prescriptions, significant lab abnormalities, going to OR and other pertinent info. @ - 59 male alcohol intoxication pending alcohol withdrawal and alcohol withdrawal, CT brain negative as he does have left arm numbness and tingling suspect Tuesday night palsy, patient will admit for further evaluation of withdrawal symptoms Admit Undiagnosed new problem with uncertain prognosis? @ -no Drug Therapy requiring intensive monitoring for toxicity (Heparin, Nitro, Insulin, Cardizem)? @ -no Were any procedures done? @ -no Diagnosis/symptom? @ -Alcohol withdrawal Acute, or Chronic, or Acute on Chronic? @ -Acute Uncomplicated (without systemic symptoms) or Complicated (systemic symptoms)? @ -Complicated Side effects of treatment? @ -no Exacerbation, Progression, or Severe Exacerbation? @ -exacerbation Poses a threat to life or bodily function? How? (Chest pain, USA, MS, pneumonia, PE, COPD, DKA, ARF, appy, cholecystitis, CVA, Diverticulitis, Homicidal, Suicidal, threat to staff... and all critical care pts) @ -yes severe alcohol withdrawal Reevaluation #5: Differential Altered Mental Status: Hypoglycemia, DKA, hypercapnia, ETOH, overdose, CO poisoning, trauma, myxedema coma, HTN encephalopathy, infection, encephalitis, psychosis, intercranial hemo rrhage, hepatic encephalopathy, meningitis, CVA, this is not meant to be an all- inclusive list Medical Decision Making - Medical Decision Making 59 male alcohol intoxication pending alcohol withdrawal and alcohol withdrawal, CT brain negative as he does have left arm numbness and tingling suspect Tuesday night palsy, patient will admit for further evaluation of withdrawal symptoms - Lab Data Result diagrams: 01/23/25 05:38 01/23/25 05:38 Lab Results 01/22/25 01/22/25 01/22/25 Range/Units 19:06 19:06 19:06 WBC 6.44 (4.50-10.00) 10*3/uL RBC 5.26 (4.40-5.60) 10*6/uL Hgb 17.9 H (13.0-17.0) g/dL Hct 47.9 (39.6-50.0) % MCV 91.1 (80.0-97.0) fL MCH 34.0 H (27.0-32.0) pg MCHC 37.4 H (32.0-37.0) g/dL Plt Count 308 (140-440) 10*3/uL MPV 9.4 L (9.5-12.2) fL Immature Gran % (Auto) 0.2 % Neutrophils % 62.2 % Lymphocytes % 28.0 % Monocytes % 8.2 % Eosinophils % 0.0 % Basophils % 1.4 % Immature Gran # 0.01 (0.00-0.04) 10*3/uL Neutrophils # 4.01 (1.80-7.70) 10*3/uL Lymphocytes # 1.80 (0.90-5.00) 10*3/uL Monocytes # 0.53 (0.20-1.00) 10*3/uL Eosinophils # 0.00 L (0.04-0.35) 10*3/uL Basophils # 0.09 (0.00-0.10) 10*3/uL PT 15.3 H (10.0-12.5) sec INR 1.5 H (<1.2) Sodium (137-145) mmol/L Potassium (3.5-5.1) mmol/L Chloride (98-107) mmol/L Carbon Dioxide (22-30) mmol/L Anion Gap mmol/L BUN (9-20) mg/dL Creatinine (0.66-1.25) mg/dL Est GFR (CKD-EPI)AfAm (>60 ml/min/1.73 sqM) Est GFR (CKD-EPI)NonAf (>60 ml/min/1.73 sqM) Glucose (74-99) mg/dL Calcium (8.4-10.2) mg/dL Phosphorus (2.5-4.5) mg/dL Magnesium (1.6-2.3) mg/dL Total Bilirubin (0.2-1.3) mg/dL AST (17-59) U/L ALT (4-49) U/L Alkaline Phosphatase (38-126) U/L Ammonia (<30) umol/L Total Protein (6.3-8.2) g/dL Albumin (3.5-5.0) g/dL Lipase (23-300) U/L Urine Color Yellow Urine Appearance Clear (Clear) Urine pH 5.5 (5.0-8.0) Ur Specific Aurora 1.024 (1.001-1.035) Urine Protein Negative (Negative) Urine Glucose (UA) Negative (Negative) Urine Ketones Negative (Negative) Urine Blood Negative (Negative) Urine Nitrite Negative (Negative) Urine Bilirubin Negative (Negative) Urine Urobilinogen <2.0 (<2.0) mg/dL Ur Leukocyte Esterase Negative (Negative) Urine Opiates Screen Not Detected (NotDetected) Ur Oxycodone Screen Not Detected (NotDetected) Urine Methadone Screen Not Detected (NotDetected) Ur Barbiturates Screen Not Detected (NotDetected) U Tricyclic Antidepress Not Detected (NotDetected) Ur Phencyclidine Scrn Not Detected (NotDetected) Ur Amphetamines Screen Not Detected (NotDetected) U Methamphetamines Scrn Not Detected (NotDetected) U Benzodiazepines Scrn Detected H (NotDetected) Urine Cocaine Screen Not Detected (NotDetected) U Marijuana (THC) Screen Detected H (NotDetected) 01/22/25 01/22/25 Range/Units 19:06 19:06 WBC (4.50-10.00) 10*3/uL RBC (4.40-5.60) 10*6/uL Hgb (13.0-17.0) g/dL Hct (39.6-50.0) % MCV (80.0-97.0) fL MCH (27.0-32.0) pg MCHC (32.0-37.0) g/dL Plt Count (140-440) 10*3/uL MPV (9.5-12.2) fL Immature Gran % (Auto) % Neutrophils % % Lymphocytes % % Monocytes % % Eosinophils % % Basophils % % Immature Gran # (0.00-0.04) 10*3/uL Neutrophils # (1.80-7.70) 10*3/uL Lymphocytes # (0.90-5.00) 10*3/uL Monocytes # (0.20-1.00) 10*3/uL Eosinophils # (0.04-0.35) 10*3/uL Basophils # (0.00-0.10) 10*3/uL PT (10.0-12.5) sec INR (<1.2) Sodium 133 L (137-145) mmol/L Potassium 4.1 (3.5-5.1) mmol/L Chloride 96 L (98-107) mmol/L Carbon Dioxide 23 (22-30) mmol/L Anion Gap 14 mmol/L BUN 20 (9-20) mg/dL Creatinine 0.81 (0.66-1.25) mg/dL Est GFR (CKD-EPI)AfAm >90 (>60 ml/min/1.73 sqM) Est GFR (CKD-EPI)NonAf >90 (>60 ml/min/1.73 sqM) Glucose 153 H (74-99) mg/dL Calcium 8.8 (8.4-10.2) mg/dL Phosphorus 4.3 (2.5-4.5) mg/dL Magnesium 1.9 (1.6-2.3) mg/dL Total Bilirubin 2.4 H (0.2-1.3) mg/dL AST 205 H (17-59) U/L ALT 82 H (4-49) U/L Alkaline Phosphatase 128 H (38-126) U/L Ammonia <9 (<30) umol/L Total Protein 7.3 (6.3-8.2) g/dL Albumin 4.5 (3.5-5.0) g/dL Lipase 311 H (23-300) U/L Urine Color Urine Appearance (Clear) Urine pH (5.0-8.0) Ur Specific Aurora (1.001-1.035) Urine Protein (Negative) Urine Glucose (UA) (Negative) Urine Ketones (Negative) Urine Blood (Negative) Urine Nitrite (Negative) Urine Bilirubin (Negative) Urine Urobilinogen (<2.0) mg/dL Ur Leukocyte Esterase (Negative) Urine Opiates Screen (NotDetected) Ur Oxycodone Screen (NotDetected) Urine Methadone Screen (NotDetected) Ur Barbiturates Screen (NotDetected) U Tricyclic Antidepress (NotDetected) Ur Phencyclidine Scrn (NotDetected) Ur Amphetamines Screen (NotDetected) U Methamphetamines Scrn (NotDetected) U Benzodiazepines Scrn (NotDetected) Urine Cocaine Screen (NotDetected) U Marijuana (THC) Screen (NotDetected) - EKG Data -: EKG Interpreted by Me (EKG is sinus 97 ND 148 QRS 144 QTc 477) - Radiology Data Radiology results: report reviewed (CT brain negative for acute disease), image reviewed Disposition Clinical Impression: Alcoholic intoxication, Alcohol abuse with withdrawal, Alcohol abuse Disposition: ADMITTED IP TO THIS HOSP Condition: Good Is patient prescribed a controlled substance at d/c from ED?: No Time of Disposition: 20:00
[2025-01-22 19:26] LABS: Basophils # (A) 0.09 10*3/uL (0.00-0.10); Basophils % (A) 1.4 %; HCT 47.9 % (39.6-50.0); HGB 17.9 g/dL (13.0-17.0); MCHC 37.4 g/dL (32.0-37.0); MCV 91.1 fL (80.0-97.0); Mean Platelet Volume 9.4 fL (9.5-12.2); Monocytes # (A) 0.53 10*3/uL (0.20-1.00); Monocytes % (A) 8.2 %; Neutrophils # (A) 4.01 10*3/uL (1.80-7.70); Neutrophils % (A) 62.2 %; Platelet Count 308 10*3/uL (140-440); RBC 5.26 10*6/uL (4.40-5.60); RDW 11.5 % (11.5-14.5); WBC 6.44 10*3/uL (4.50-10.00)
[2025-01-22 19:27] LABS: INR 1.5 (<1.2); Prothrombin Time 15.3 sec (10.0-12.5)
[2025-01-22 19:31] LABS: ALT 82 U/L (4-49); AST 205 U/L (17-59); African American GFR (CKD) >90 (>60 ml/min/1.73 sqM); Albumin 4.5 g/dL (3.5-5.0); Alkaline Phosphatase 128 U/L (38-126); Anion Gap 14 mmol/L; Blood Urea Nitrogen 20 mg/dL (9-20); Calcium 8.8 mg/dL (8.4-10.2); Carbon Dioxide 23 mmol/L (22-30); Chloride 96 mmol/L (98-107); Glucose 153 mg/dL (74-99); Lipase 311 U/L (23-300); Magnesium 1.9 mg/dL (1.6-2.3); Non-African American GFR(CKD) >90 (>60 ml/min/1.73 sqM); Phosphorus 4.3 mg/dL (2.5-4.5); Potassium 4.1 mmol/L (3.5-5.1); Sodium 133 mmol/L (137-145); Total Bilirubin 2.4 mg/dL (0.2-1.3); Total Protein 7.3 g/dL (6.3-8.2)
[2025-01-22] MEDS ORDERED: LORazepam 1 MG TAB PO PRN ×2 (19:38)
[2025-01-22] MEDS ORDERED: LORazepam 2 MG/ML INJ IV PRN ×2 (19:38)
[2025-01-22] MEDS: SODIUM CHLORIDE 0.9% 1,000 ML IV STA (19:40)
[2025-01-22] MEDS: ONDANSETRON 4 MG/2 ML VIAL IVP STA (19:43)
[2025-01-22] MEDS: LORazepam 2 MG/ML INJ IV STA (19:46)
--- NOTE | 2025-01-22 19:46 | CT ---
EXAMINATION TYPE: CT brain wo con CT DLP: 1215.6 mGycm, Automated exposure control for dose reduction was used. DATE OF EXAM: 01/22/2025 7:36 PM COMPARISON: CT brain 04/01/2023, 10/16/2022 CLINICAL INDICATION:Male, 59 years old with history of mccray, substance abuse TECHNIQUE: Brain: Multiple axial CT images of the brain were obtained without IV contrast. . Coronal and sagitta l reformats reviewed. FINDINGS: Brain: Extra-axial spaces: No abnormal extra-axial fluid collections. Ventricular system: Within normal limits Cerebral parenchyma: No acute intraparenchymal hemorrhage or mass effect. The clark-white junction is well differentiated. Cerebellum: Unremarkable. Mass effect: No evidence of midline shift. Intracranial vasculature: Atherosclerotic calcifications of the intracranial vessels. Soft tissues: Normal. Calvarium/osseous structures: No depressed skull fracture. Paranasal sinuses and mastoid air cells: Mastoid air cells are clear. 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 Mild mucosal thickening in the posterior left ethmoid sinus. Remaining paranasal sinuses are kennedy ar. Visualized orbits: Orbital contents are intact. IMPRESSION: No acute intracranial process. [facility], , 01/22/2025 7:44 PM
[2025-01-22] MEDS ORDERED: NALOXONE 0.4 MG/ML 1 ML VIAL IV PRN (19:58)
[2025-01-22 20:04] LABS: Appearance,Urine Clear (Clear); Bilirubin,Urine Negative (Negative); Blood,Urine Negative (Negative); Color,Urine Yellow; Glucose,Urine (UA) Negative (Negative); Ketones,Urine Negative (Negative); Leukocyte Esterase,Urine Negative (Negative); Nitrite,Urine Negative (Negative); PH, Urine 5.5 (5.0-8.0); Protein,Urine Negative (Negative); Specific Gravity,Urine 1.024 (1.001-1.035); Urobilinogen,Urine <2.0 mg/dL (<2.0)
[2025-01-22 20:21] LABS: Amphetamine Screen,Urine Not Detected (NotDetected); Barbiturate Screen,Urine Not Detected (NotDetected); Benzodiazepines Screen,Urine Detected (NotDetected); Cocaine Screen,Urine Not Detected (NotDetected); Methadone Screen, Urine Not Detected (NotDetected); Opiate Screen,Urine Not Detected (NotDetected); Oxycodone Screen, Urine Not Detected (NotDetected); Phencyclidine Screen,Urine Not Detected (NotDetected); Tricyclic Antidepressant,Urine Not Detected (NotDetected); Urn Cannabinoid Scrn Detected (NotDetected)
[2025-01-22] MEDS: DEXTROSE 5%-0.45% NACL 1,000 ML IV SCH (20:30)
[2025-01-22] MEDS: LORazepam 2 MG/ML INJ IV PRN (20:43)
[2025-01-22] MEDS ORDERED: LORazepam 1 MG/0.5 ML VIAL IV PRN ×2 (22:51→22:52)
[2025-01-22] MEDS: LORazepam 1 MG/0.5 ML VIAL IV PRN (23:05)
[2025-01-23] MEDS: LORazepam 0.5 MG TAB PO PRN (06:28)
[2025-01-23] MEDS: ONDANSETRON 4 MG/2 ML VIAL IVP PRN (06:41)
[2025-01-23] MEDS: FOLIC ACID 1 MG TAB PO SCH (08:07)
[2025-01-23] MEDS: MULTIVITAMINS, THERA 1 EACH TAB PO SCH (08:07)
[2025-01-23] MEDS: LORazepam 1 MG TAB PO PRN (08:11)
[2025-01-23 08:19] LABS: Magnesium 1.8 mg/dL (1.5-2.4); Phosphorus 2.8 mg/dL (2.4-5.1)
[2025-01-23 08:24] LABS: ALT 78 U/L (10-49); AST 151 U/L (14-35); Albumin 3.9 g/dL (3.8-4.9); Albumin/Globulin Ratio 1.86 Ratio (1.60-3.17); Alkaline Phosphatase 113 U/L (41-126); BUN/Creat Ratio 13.22 Ratio (12.00-20.00); Basophils # (A) 0.06 X 10*3/uL (0.00-0.10); Basophils % (A) 0.7 %; Blood Urea Nitrogen 11.9 mg/dL (9.0-27.0); Calcium 8.2 mg/dL (8.7-10.3); Carbon Dioxide 24.5 mmol/L (21.6-31.8); Chloride 98 mmol/L (96-109); Eosinophils # (A) 0.04 X 10*3/uL (0.04-0.35); Eosinophils % (A) 0.5 %; Globulin 2.1 g/dL (1.6-3.3); Glucose 149 mg/dL (70-110); HCT 43.7 % (39.6-50.0); HGB 15.6 g/dL (13.0-17.0); Lymphocytes # (A) 2.08 X 10*3/uL (0.90-5.00); Lymphocytes % (A) 24.2 %; MCH 33.7 pg (27.0-32.0); MCHC 35.7 g/dL (32.0-37.0); MCV 94.4 FL (80.0-97.0); Mean Platelet Volume 9.6 FL (9.5-12.2); Monocytes # (A) 0.73 X 10*3/uL (0.20-1.00); Monocytes % (A) 8.5 %; NRBC Per 100 WBC 0 X 10*3/uL (0.00-0.01); Neutrophils # (A) 5.65 X 10*3/uL (1.80-7.70); Neutrophils % (A) 65.8 %; Platelet Count 240 X 10*3/uL (140-440); Potassium 3.4 mmol/L (3.5-5.5); RBC 4.63 X 10*6/uL (4.40-5.60); Sodium 136 mmol/L (135-145); Total Bilirubin 3.2 mg/dL (0.3-1.2); WBC 8.59 X 10*3/uL (4.50-10.00)
[2025-01-23] MEDS: PANTOPRAZOLE 40 MG TABLET PO SCH (18:38)
[2025-01-23] MEDS: THIAMINE 100 MG TAB PO SCH (20:21)
[2025-01-23] MEDS: MONTELUKAST 10 MG TAB PO SCH (20:21)
[2025-01-23] MEDS: traZODone HCL 50 MG TAB PO SCH (20:21)
[2025-01-23] MEDS: MIRTAZAPINE 15 MG TAB PO SCH (20:31)
--- NOTE | 2025-01-24 02:17 | HP ---
HISTORY AND PHYSICAL CHIEF COMPLAINT: Acute alcohol intoxication and DTs. HISTORY OF PRESENT ILLNESS: This is another admission for this 59-year-old white male. He has been in and out of the hospital several times in the last year with acute alcohol intoxication and DTs. He was in just about a month ago. REVIEW OF SYSTEMS: He denies any headaches, chest pain, abdominal pain, melena, hematochezia, hematemesis, etc. Past medical history, family history, and personal and social histories otherwise all unremarkable and unchanged. He does have hypertension. ALLERGIES: He is allergic to Celebrex. MEDICATIONS: He has been on: 1. Protonix. 2. Clonidine. 3. Thiamine. 4. Mirtazapine. 5. Montelukast. 6. Bupropion. 7. Albuterol. 8. Oxycodone. He has never smoked. PHYSICAL EXAMINATION: VITAL SIGNS: Normal. HEAD, EARS, EYES, NOSE, MOUTH, AND THROAT: Normal. NECK: Veins not distended. CHEST: Clear. CARDIAC: Normal. ABDOMEN: Soft, nontender. EXTREMITIES: Normal. NEUROLOGIC: He is intact. DIAGNOSES: He is admitted to the hospital with diagnoses: 1. Acute alcohol intoxication. 2. Delirium tremens. 3. History of hypertension. 4. History of depression. PLAN: 1. Bedrest. 2. IV fluids. 3. CIWA protocol. DEWAYNE / WALDON: [id number] /
--- NOTE | 2025-01-24 04:17 | PN ---
PROGRESS NOTE CHIEF COMPLAINT: Acute alcohol intoxication and DTs. HISTORY OF PRESENT ILLNESS: This gentleman is stable, but he is going into DTs. PHYSICAL EXAMINATION: GENERAL: He is tremulous. HEART: He is tachycardic. CHEST: Clear. IMPRESSION: 1. Acute alcohol intoxication. 2. Chronic alcoholism. 3. Delirium tremens. PLAN: [facility] protocol. MMZAHIRA / WALDON: [id number] /
[2025-01-24 07:25] VITALS: BP 123/80; PULSE 94; RESP 18; TEMP 98.5
[2025-01-24] MEDS: LORATADINE 10 MG TAB PO SCH (08:10)
--- NOTE | 2025-01-24 14:15 | DS ---
DISCHARGE SUMMARY CHIEF COMPLAINT: Acute alcohol intoxication and impending DTs. HISTORY OF PRESENT ILLNESS AND PHYSICAL EXAM: Details of this man's history and physical can be found in the initial workup. LABORATORY STUDIES: While he was in the hospital, he had laboratory studies, details of which can be found in the laboratory section of his chart. COURSE IN THE HOSPITAL: After admission, he was placed on bedrest, started on intravenous fluids and CIWA protocol. He is doing well. It was felt that he could go home on the and he will follow up in the office in several days. FINAL DIAGNOSES: 1. Acute alcohol intoxication. 2. Chronic alcoholism. 3. Delirium tremens. OPERATIONS: None. CONSULTATIONS: None. He is improved. MMODL / IJN: [id number] /
== END 2025-01-24 12:33 | disposition home or self-care (01) ==
LOC: EC 18:23 → 5NMEDONC 20:00
PROVIDERS: ADMIT Family Medicine; ATTEND Family Medicine
DX: F10.121 Alcohol abuse with intoxication delirium (principal); Y90.6 Blood alcohol level of 120-199 mg/100 ml; E78.5 Hyperlipidemia, unspecified; J45.909 Unspecified asthma, uncomplicated; F32.A Depression, unspecified; F41.9 Anxiety disorder, unspecified; I10 Essential (primary) hypertension; Z79.899 Other long term (current) drug therapy
CPT/HCPCS: 96376 ×2; 96361; 96374; 96375; 99285; 36415; 80053 ×2; 82140; 83690; 83735 ×2; 84100 ×2; 85025 ×2; 85610; 81003; 80306; 80320; 70450; G0378 ×3; J2060 ×3; J2405 ×2

== ENCOUNTER 2025-02-19 13:09 | Observation (INO) | payer MEDICARE ==
--- NOTE | 2025-02-19 13:49 | ED ---
General Adult HPI - General Chief complaint: Alcohol Stated complaint: ETOH withdrawal Time Seen by Provider: 02/19/25 13:14 Source: patient, RN notes reviewed Mode of arrival: ambulatory Limitations: no limitations - History of Present Illness Initial comments: 60 year old male presents to the ED for evaluation of alcohol abuse. He says he has tried to go for rehab multiple times without success because of their waitlists and insurance issues. He has had a low appetite and hasn't eaten for the past 2-3 days. He complains of mild generalized abdominal pain. He reports SOB but denies any chest pain or palpitations. - Related Data Home Medications Medication Instructions Recorded Confirmed oxyCODONE HCL/ACETAMINOPHEN 1 tab PO QID PRN 03/29/23 02/19/25 [Percocet 7.5-325 mg] Albuterol Sulfate [Ventolin HFA] 2 puff INHALATION RT-QID PRN 12/23/24 02/19/25 Loratadine [Claritin] 10 mg PO DAILY 12/23/24 02/19/25 Montelukast [Singulair] 10 mg PO HS 12/23/24 02/19/25 traZODone HCL [Desyrel] 50 mg PO HS 12/23/24 02/19/25 ALPRAZolam [Xanax] 0.25 mg PO HS 01/22/25 02/19/25 cloNIDine HCL [Catapres] 0.1 mg PO TID 02/19/25 02/19/25 Previous Rx's Medication Instructions Recorded Mirtazapine [Remeron] 15 mg PO HS #10 tab 12/26/24 Pantoprazole [Protonix] 40 mg PO AC-BID #20 tab 12/26/24 Thiamine [Vitamin B-1] 100 mg PO BID #60 tab 12/26/24 Allergies Allergy/AdvReac Type Severity Reaction Status Date / Time celecoxib [From Celebrex] Allergy Rash/Hives Verified 02/19/25 18:17 Review of Systems ROS Statement: Those systems with pertinent positive or pertinent negative responses have been documented in the HPI. ROS Other: All systems not noted in ROS Statement are negative. Past Medical History Past Medical History: Asthma, Hyperlipidemia Additional Past Medical History / Comment(s): chronic back pain History of Any Multi-Drug Resistant Organisms: None Reported Past Surgical History: Back Surgery, Joint Replacement, Orthopedic Surgery Additional Past Surgical History / Comment(s): shoulders, femur, R hip Past Anesthesia/Blood Transfusion Reactions: No Reported Reaction Past Psychological History: Anxiety, Depression Smoking Status: Never smoker, Smoker, current status unknown Past Alcohol Use History: Abuse, Daily, Heavy Past Drug Use History: Marijuana - Past Family History Father Family Medical History: Cancer Additional Family Medical History / Comment(s): Father from metastatic cancer/lung cancer. Mother Family Medical History: Renal Disease Additional Family Medical History / Comment(s): Mother was on dialysis. She is . General Exam Limitations: no limitations General appearance: alert, in no apparent distress Head exam: Present: atraumatic, normocephalic, normal inspection Eye exam: Present: normal appearance, PERRL, EOMI. Absent: scleral icterus, conjunctival injection, periorbital swelling ENT exam: Present: normal exam, normal oropharynx, mucous membranes moist Neck exam: Present: normal inspection. Absent: tenderness, meningismus, lymp hadenopathy Respiratory exam: Present: normal lung sounds bilaterally. Absent: respiratory distress, wheezes, rales, rhonchi, stridor Cardiovascular Exam: Present: regular rate, normal rhythm, normal heart sounds. Absent: systolic murmur, diastolic murmur, rubs, gallop, clicks GI/Abdominal exam: Present: soft, normal bowel sounds. Absent: distended, tenderness, guarding, rebound, rigid Neurological exam: Present: alert, oriented X3, CN II-XII intact Skin exam: Present: warm, dry, intact, normal color. Absent: rash Course Vital Signs 02/19/25 02/19/25 02/19/25 13:10 17:55 20:47 Temperature 97.8 F 99.0 F 98.7 F Pulse Rate 99 80 111 H Pulse Rate [ Left] Respiratory 16 16 20 Rate Blood Pressure 142/92 148/83 162/95 Blood Pressure [Left Arm] O2 Sat by Pulse 95 100 97 Oximetry 02/19/25 02/20/25 02/20/25 23:51 00:42 06:06 Temperature Pulse Rate 89 100 113 H Pulse Rate [ Left] Respiratory 22 20 18 Rate Blood Pressure 118/98 134/72 149/110 Blood Pressure [Left Arm] O2 Sat by Pulse 98 98 94 L Oximetry 02/20/25 02/20/2525 07:39 08:47 11:39 Temperature Pulse Rate 99 94 107 H Pulse Rate [ Left] Respiratory 20 20 18 Rate Blood Pressure 158/113 147/110 Blood Pressure [Left Arm] O2 Sat by Pulse 100 98 100 Oximetry 02/20/25 02/20/25 15:00 15:45 Temperature 98.2 F 100.2 F H Pulse Rate 97 Pulse Rate [ 107 H Left] Respiratory 18 20 Rate Blood Pressure 157/105 Blood Pressure 166/103 [Left Arm] O2 Sat by Pulse 99 97 Oximetry Medical Decision Making - Medical Decision Making Was pt. sent in by a medical professional or institution (, MARCELO, COMMUNICATIONS CONTROLLER, urgent care, hospital, or fpc...) When possible be specific @ -No Did you speak to anyone other than the patient for history (EMS, parent, family, police, friend...)? What history was obtained from this source @ -No Did you review nursing and triage notes (agree or disagree)? Why? @ -I reviewed and agree with nursing and triage notes Were old charts reviewed (outside hosp., previous admission, EMS record, old EKG, old radiological studies, urgent care reports/EKG's, fpc records)? Report findings @ -No old charts were reviewed Differential Diagnosis (chest pain, altered mental status, abdominal pain women, abdominal pain men, vaginal bleeding, weakness, fever, dyspnea, syncope, headache, dizziness, GI bleed, back pain, seizure, CVA, palpatations, mental health, musculoskeletal)? @ -Alcohol abuse, alcohol intoxication, alcohol withdrawal EKG interpreted by me (3pts min.). @ -None X-rays interpreted by me (1pt min.). @ -None done CT interpreted by me (1pt min.). @ -None done U/S interpreted by me (1pt. min.). @ -None done What testing was considered but not performed or refused? (CT, X-rays, U/S, labs)? Why? @ -None What meds were considered but not given or refused? Why? @ -None Did you discuss the management of the patient with other professionals (professionals i.e. , MARCELO, COMMUNICATIONS CONTROLLER, lab, RT, psych nurse, nephrology social worker, beef tagger, teacher, affirmative action officer, human services case manager)? Give summary @ -Dr. Salazar for admission Was smoking cessation discussed for >3mins.? @ -No Was critical care preformed (if so, how long)? @ -No Were there social determinants of health that impacted care today? How? (Homelessness, low income, unemployed, alcoholism, drug addiction, transportation, low edu. Level, literacy, decrease access to med. care, assisted, rehab)? @ -Alcohol abuse Was there de-escalation of care discussed even if they declined (Discuss DNR or withdrawal of care, Hospice)? DNR status @ -No What co-morbidities impacted this encounter? (DM, HTN, Smoking, COPD, CAD, Cancer, CVA, ARF, Chemo, Hep., AIDS, mental health diagnosis, sleep apnea, morbid obesity)? @ -Alcohol abuse Was patient admitted / discharged? Hospital course, mention meds given and route, prescriptions, significant lab abnormalities, going to OR and other pertinent info. @ -Admitted attempted to get patient to [facility] which was unsuccessful. Patient is severely intoxicated. Patient be admitted for alcohol intoxication impending withdrawal and possible placement to rehab Undiagnosed new problem with uncertain prognosis? @ -No Drug Therapy requiring intensive monitoring for toxicity (Heparin, Nitro, Insulin, Cardizem)? @ -No Were any procedures done? @ -No Diagnosis/symptom? @ -Alcohol intoxication, alcohol abuse Acute, or Chronic, or Acute on Chronic? @ -Acute Uncomplicated (without systemic symptoms) or Complicated (systemic symptoms)? @ -Complicated Side effects of treatment? @ -No Exacerbation, Progression, or Severe Exacerbation? @ -No Poses a threat to life or bodily function? How? (Chest pain, USA, DE, pneumonia, PE, COPD, DKA, ARF, appy, cholecystitis, CVA, Diverticulitis, Homicidal, Suicidal, threat to staff... and all critical care pts) @ -No - Lab Data Result diagrams: 02/19/25 14:44 02/19/25 14:44 Lab Results 02/19/25 02/19/25 Range/Units 14:44 14:44 WBC 3.73 L (4.50-10.00) 10*3/uL RBC 5.22 (4.40-5.60) 10*6/uL Hgb 17.5 H (13.0-17.0) g/dL Hct 46.7 (39.6-50.0) % MCV 89.5 (80.0-97.0) fL MCH 33.5 H (27.0-32.0) pg MCHC 37.5 H (32.0-37.0) g/dL Plt Count Not Reportable MPV 9.4 L (9.5-12.2) fL Immature Gran % (Auto) 0 % Neutrophils % 56.9 % Lymphocytes % 32.4 % Monocytes % 7.5 % Eosinophils % 1.6 % Basophils % 1.6 % Immature Gran # 0.00 (0.00-0.04) 10*3/uL Neutrophils # 2.12 (1.80-7.70) 10*3/uL Lymphocytes # 1.21 (0.90-5.00) 10*3/uL Monocytes # 0.28 (0.20-1.00) 10*3/uL Eosinophils # 0.06 (0.04-0.35) 10*3/uL Basophils # 0.06 (0.00-0.10) 10*3/uL Manual Slide Review Performed Spherocytes Present Sodium 138 (137-145) mmol/L Potassium 4.4 (3.5-5.1) mmol/L Chloride 99 (98-107) mmol/L Carbon Dioxide 22 (22-30) mmol/L Anion Gap 17 mmol/L BUN 14 (9-20) mg/dL Creatinine 0.60 L (0.66-1.25) mg/dL Est GFR (CKD-EPI)AfAm >90 (>60 ml/min/1.73 sqM) Est GFR (CKD-EPI)NonAf >90 (>60 ml/min/1.73 sqM) Glucose 171 H (74-99) mg/dL Calcium 8.8 (8.4-10.2) mg/dL Magnesium 1.9 (1.6-2.3) mg/dL Total Bilirubin 1.5 H (0.2-1.3) mg/dL AST 73 H (17-59) U/L ALT 39 (4-49) U/L Alkaline Phosphatase 89 (38-126) U/L Total Protein 7.3 (6.3-8.2) g/dL Albumin 4.6 (3.5-5.0) g/dL Lipase 101 (23-300) U/L Serum Alcohol 295 H* mg/dL Disposition Clinical Impression: Alcoholic intoxication, Alcohol abuse Disposition: HOME SELF-CARE Condition: Stable Is patient prescribed a controlled substance at d/c from ED?: No Time of Disposition: 16:09
[2025-02-19 15:06] LABS: Basophils # (A) 0.06 10*3/uL (0.00-0.10); Basophils % (A) 1.6 %; Eosinophils # (A) 0.06 10*3/uL (0.04-0.35); Eosinophils % (A) 1.6 %; HCT 46.7 % (39.6-50.0); HGB 17.5 g/dL (13.0-17.0); Lymphocytes # (A) 1.21 10*3/uL (0.90-5.00); Lymphocytes % (A) 32.4 %; MCH 33.5 pg (27.0-32.0); MCHC 37.5 g/dL (32.0-37.0); MCV 89.5 fL (80.0-97.0); Mean Platelet Volume 9.4 fL (9.5-12.2); Monocytes # (A) 0.28 10*3/uL (0.20-1.00); Monocytes % (A) 7.5 %; Neutrophils # (A) 2.12 10*3/uL (1.80-7.70); Neutrophils % (A) 56.9 %; RBC 5.22 10*6/uL (4.40-5.60); RDW 11.4 % (11.5-14.5); WBC 3.73 10*3/uL (4.50-10.00)
[2025-02-19 15:12] LABS: ALT 39 U/L (4-49); African American GFR (CKD) >90 (>60 ml/min/1.73 sqM); Albumin 4.6 g/dL (3.5-5.0); Anion Gap 17 mmol/L; Blood Urea Nitrogen 14 mg/dL (9-20); Calcium 8.8 mg/dL (8.4-10.2); Carbon Dioxide 22 mmol/L (22-30); Chloride 99 mmol/L (98-107); Glucose 171 mg/dL (74-99); Lipase 101 U/L (23-300); Non-African American GFR(CKD) >90 (>60 ml/min/1.73 sqM); Sodium 138 mmol/L (137-145); Total Bilirubin 1.5 mg/dL (0.2-1.3); Total Protein 7.3 g/dL (6.3-8.2)
[2025-02-19 15:28] LABS: AST 73 U/L (17-59); Alcohol 295 mg/dL; Alkaline Phosphatase 89 U/L (38-126); Magnesium 1.9 mg/dL (1.6-2.3); Potassium 4.4 mmol/L (3.5-5.1)
[2025-02-19] MEDS: SODIUM CHLORIDE 0.9% 1,000 ML IV STA (16:24)
[2025-02-19 17:05] LABS: Spherocytes Present
[2025-02-19] MEDS ORDERED: NALOXONE 0.4 MG/ML 1 ML VIAL IV PRN (17:30)
[2025-02-19] MEDS ORDERED: LORazepam 2 MG/ML INJ IV PRN (17:32)
[2025-02-19] MEDS: DEXTROSE 5%-0.45% NACL 1,000 ML IV SCH (18:50)
[2025-02-19] MEDS: chlordiazePOXIDE 25 MG CAP PO PRN ×2 (19:04→23:50)
[2025-02-19] MEDS: LORazepam 1 MG TAB PO PRN (20:41)
[2025-02-19] MEDS: ONDANSETRON 4 MG/2 ML VIAL IVP PRN (20:42)
[2025-02-19] MEDS: FAMOTIDINE 20 MG TAB PO SCH (20:42)
[2025-02-20] MEDS: IPRATROPIUM-ALBUTEROL 3 ML NEB INHALATION STA (00:46)
[2025-02-20] MEDS: ZOLPIDEM 5 MG TAB PO PRN (01:06)
[2025-02-20] MEDS: chlordiazePOXIDE 25 MG CAP PO PRN (06:09)
[2025-02-20] MEDS: LORazepam 2 MG/ML INJ IV STA (06:32)
[2025-02-20] MEDS: ENOXAPARIN 40 MG/0.4 ML SYRINGE SQ SCH (08:43)
[2025-02-20] MEDS: FOLIC ACID 1 MG TAB PO SCH (08:44)
[2025-02-20] MEDS: THIAMINE 100 MG TAB PO SCH (08:44)
[2025-02-20] MEDS: MULTIVITAMINS, THERA 1 EACH TAB PO SCH (08:44)
[2025-02-20] MEDS: LORazepam 1 MG/0.5 ML VIAL IV PRN (16:56)
--- NOTE | 2025-02-21 00:06 | HP ---
HISTORY AND PHYSICAL CHIEF COMPLAINT: Acute alcohol intoxication, chronic alcoholism, and hypertension. HISTORY OF PRESENT ILLNESS: This is another admission for this 60-year-old male, who has been coming in and out over the last several months with acute alcohol intoxication. He has had some conflicts with his daughter on and off, which explains some of his drinking. REVIEW OF SYSTEMS: He is intoxicated at this time and has no other obvious complaints. Past medical history, family history, and personal and social histories are all noncontributory. He does have history of gastritis and depression. He has been prescribed mirtazapine and bupropion. He also takes oxycodone for low back pain. He is allergic to Celebrex. Otherwise, his history is unremarkable. PHYSICAL EXAMINATION: VITAL SIGNS: Blood pressure 198/113. HEAD, EARS, EYES, NOSE, MOUTH, AND THROAT: Normal. CHEST: Fairly clear. CARDIAC: Reveals a sinus tachycardia. ABDOMEN: Soft and nontender. EXTREMITIES: Normal. NEUROLOGICAL: Lethargic and intoxicated. DIAGNOSES: He is admitted to the hospital with diagnoses; 1. Acute alcohol intoxication. 2. Chronic alcoholism. 3. Impending delirium tremens. 4. Hypertension. 5. Depression. PLAN: 1. Bedrest. 2. IV fluids. 3. CIWA protocol. 4. Thiamine. MMODL / IJN: [id number] /
[2025-02-21] MEDS: chlordiazePOXIDE 25 MG CAP PO PRN (00:21)
[2025-02-21] MEDS ORDERED: ALBUTEROL NEBULIZED 2.5 MG/3 ML INHALATION PRN (10:40)
[2025-02-21] MEDS: PANTOPRAZOLE 40 MG TABLET PO SCH (12:11)
--- NOTE | 2025-02-21 13:18 | XR ---
EXAMINATION TYPE: XR Hip Complete RT DATE OF EXAM: 02/21/2025 CLINICAL INDICATION: Male, 60 years old with history of right hip pain, Pain, multiple falls. TECHNIQUE: AP and frogleg views of the right hip are obtained. COMPARISON: Right hip x-ray April 01, 2023. FINDINGS: There is no acute fracture/dislocation evident in the right hip. Metallic prosthesis remai ns stable and satisfactory in position. The overlying soft tissue appears unremarkable. IMPRESSION: There is no acute fracture or dislocation in the right hip prosthesis. [facility], , 02/21/2025 1:16 PM
--- NOTE | 2025-02-21 13:57 | P.CN ---
Psychiatric Consult - . Consult date: 02/21/25 Consult:: 02/21/25 13:46 IDENTIFYING DATA: This patient is a 60-year-old male, living independently, on SSD REASON FOR REFERRAL: Psychiatry was consulted for depression, alcohol HISTORY OF PRESENT ILLNESS: The patient presented to the hospital with alcohol abuse. EtOH was 295. Patient was started on CIWA with Ativan and Librium. Patient seen and evaluated in his room. He expresses feeling better today, improvement in terms of his withdrawal symptoms. He states he has been drinking 3/5 of hard liquor every day for the past 2 years. He does admit to 1 DUI and has gone to rehab several times. He states he has been suffering from depr ession his entire life however this comes and goes in waves. He does admit to being nonadherent with his psychotropic medications and reports adverse effects of trazodone described as "hangover". He states he was recently restarted on Xanax for sleep and has found this very helpful however the long-term risks of this medication was discussed with the patient including cognitive impairment and fall. Patient was intermittently tearful. He expresses desire to go back to rehab and if this fails then he will moved to [place] to be with his brother. He denied any alcohol cravings. He reports poor sleep and appetite, anhedonia. At this time patient denies any suicidal or homicidal ideations, intent or plan. Patient denies any auditory, visual hallucinations and denies any paranoia or delusions. Patients admits to using alcohol daily, cannabis PAST PSYCHIATRIC HISTORY: Patient has a history of depression, alcohol use disorder. Patient is currently prescribed Remeron 15 mg at bedtime, trazodone 50 mg at bedtime, Xanax 0.25 mg at bedtime. Patient denies any previous psychiatric hospitalizations. Patient denies any psychiatric outpatient follow- up. Patient denies any history of suicide attempts in the past. PAST MEDICAL HISTORY: Asthma, dyslipidemia. ALLERGIES: as per EMR. CHEMICAL DEPENDENCY HISTORY: as per HPI. FAMILY PSYCHIATRIC/SUBSTANCE USE HISTORY: Patient states alcoholism runs in his family including his parents. SOCIAL HISTORY: Patient is and has 3 daughters. He completed high school however is on disability due to physical ailments. MENTAL STATUS EXAM: General Appearance: Patient appears to be stated age is alert, pleasant, and cooperative. Patient appears to have fair hygiene and grooming wearing hospital gown with fair eye contact. Behavior: Patient is calmly sitting next to bed without any agitated behavior. Speech: Patient's speech is fluent and nonpressured. Mood/Affect: Patient reports their mood is "depressed", affect is congruent Suicidality/Homicidality: Patient denies having any suicidal or homicidal ideation intent or plan. Perceptions: Patient denies any visual hallucinations and denies any auditory hallucinations Though content/process: There is no evidence of any delusional thought content and thought process is linear and goal-directed. Memory and concentration: AOX3, grossly intact for the purposes of this session. Can spell "WORLD" backwards Judgment and insight: Poor IMPRESSIONS: Alcohol use disorder, severe in withdrawal Substance-induced depressive disorder PLAN: -At this time patient DOES NOT meet criteria for inpatient psychiatric admission. -Would recommend the following medication changes/additions: Discontinue trazodone 50 mg at bedtime, decrease Remeron to 7.5 mg at bedtime for insomni a/mood -CIWA protocol with PRN Ativan for alcohol withdrawal. Continue to monitor vital signs. -hot iron worker to provide patient with outpatient mental health/psychiatry resources for appropriate follow up upon discharge -Supervisor [employer] spoke with patient about substance abuse and the harmful effects on medical and mental health, patient verbally understood and agreed. -hot iron worker to provide patient substance use treatment resources including AA/NA meetings in the community. -hot iron worker to provide patient with access line number to call for inpatient substance rehab -Communicated plan to patient's nurse -Psychiatry will sign off at this time -Please contact with any questions.
[2025-02-21] MEDS: cloNIDine HCL 0.1 MG TAB PO SCH (16:24)
[2025-02-21] MEDS: MONTELUKAST 10 MG TAB PO SCH (20:35)
[2025-02-21] MEDS: THIAMINE 100 MG TAB PO SCH (20:36)
[2025-02-21] MEDS ORDERED: MIRTAZAPINE 15 MG TAB PO SCH (21:00)
[2025-02-21] MEDS ORDERED: traZODone HCL 50 MG TAB PO SCH (21:00)
[2025-02-22] MEDS: MIRTAZAPINE 15 MG TAB PO SCH (00:02)
--- NOTE | 2025-02-22 05:48 | PN ---
PROGRESS NOTE CHIEF COMPLAINT: Acute alcohol intoxication. HISTORY OF PRESENT ILLNESS: This gentleman is still intoxicated. He is not in DTs. He is not complaining of any diplopia, tremors, nausea, vomiting, etc. PHYSICAL EXAMINATION: CHEST: Clear. CARDIAC: Normal. ABDOMEN: Soft, nontender. VITAL SIGNS: Blood pressure is elevated. IMPRESSION: 1. Acute alcohol intoxication. 2. Delirium tremens. 3. Hypertension. 4. Depression. PLAN: Move to the floor and continue with [facility] protocol. MMFLAQUITOL / IJN: [id number] /
--- NOTE | 2025-02-22 07:18 | PN ---
PROGRESS NOTE CHIEF COMPLAINT: Acute alcohol intoxication and DTs. HISTORY OF PRESENT ILLNESS: This gentleman is doing fairly well. He is not in florid DTs. He is very depressed. He cries easily. He is lonely. He has been complaining of some pain in his right hip, where he apparently fell, but he is ambulating. PHYSICAL EXAMINATION: CHEST: Clear. CARDIAC: Normal. ABDOMEN: Soft, nontender. IMPRESSION: 1. Acute alcohol intoxication. 2. Chronic alcoholism. 3. Pain in the right hip. 4. Hypertension. 5. Depression. PLAN: 1. X-ray of the right hip. 2. Consult with Psychiatry. He may leave [place]. MMODL / IJN: [id number] /
[2025-02-22 07:55] VITALS: BP 136/81; PULSE 95; RESP 16; TEMP 99.1
[2025-02-22] MEDS: LORATADINE 10 MG TAB PO SCH (08:11)
--- NOTE | 2025-02-22 13:03 | DS ---
DISCHARGE SUMMARY CHIEF COMPLAINT: Acute alcohol intoxication. HISTORY OF PRESENT ILLNESS AND PHYSICAL EXAM: Details of this man's history and physical can be found in the initial workup. LABORATORY STUDIES: While he is in the hospital, he had laboratory studies, details of which can be found in the laboratory section of his chart. COURSE IN THE HOSPITAL: After admission, he was placed on bedrest, started intravenous fluids and CIWA protocol. His blood pressure was controlled. Expressed the fact that he was quite depressed and feeling lonely. He was referred to Psychiatry. He also had fallen and injured his right hip, but x-rays were normal. He is doing well, felt that he could be discharged on the . He plans on leaving the hospital and going to rehab in [place]. FINAL DIAGNOSES: 1. Acute alcohol intoxication. 2. Impending delirium tremens. 3. Chronic alcoholism. 4. Hypertension. 5. Depression. 6. Contusion of the right hip. OPERATIONS: None. CONSULTATIONS: Psychiatry. MMZAHIRA / YEIMI: [id number] /
== END 2025-02-22 11:43 | disposition home or self-care (01) ==
LOC: EC 13:09 → 6NMEDSUR 17:30
PROVIDERS: ADMIT Family Medicine; ATTEND Family Medicine
DX: F10.229 Alcohol dependence with intoxication, unspecified (principal); F10.231 Alcohol dependence with withdrawal delirium; Y90.8 Blood alcohol level of 240 mg/100 ml or more; S70.01XA Contusion of right hip, initial encounter; X58.XXXA Exposure to other specified factors, initial encounter; F19.24 Other psychoactive substance dependence with psychoactive substance-induced mood disorder; F32.A Depression, unspecified; F41.9 Anxiety disorder, unspecified; E78.5 Hyperlipidemia, unspecified; I10 Essential (primary) hypertension; J45.909 Unspecified asthma, uncomplicated; Z79.899 Other long term (current) drug therapy
CPT/HCPCS: 96376 ×4; 96372 ×2; 96374; 96375; 99284; 36415; 80053; 83690; 83735; 85025; 80320; 73502; G0378 ×4; J2060; J3360 ×3; J2405 ×2; J1650 ×2

== ENCOUNTER 2025-04-14 16:49 | Observation (INO) | payer MEDICARE ==
--- NOTE | 2025-04-14 17:14 | ED ---
Psych HPI - General Chief Complaint: Psychiatric Symptoms Stated Complaint: Mental Health Eval. Time Seen by Provider: 04/14/25 16:58 Source: patient, RN notes reviewed, old records reviewed Mode of arrival: ambulatory Limitations: no limitations - History of Present Illness Initial Comments: This is a 60-year-old male to the ER for evaluation of severe depression patient feels very depressed at a loss not taking care of himself not taking care of his health, not doing activities of daily living, drinking and increasing alcohol intake lately MD Complaint: suicidal ideation, feels depressed -: days(s) Associated Psychiatric Symptoms: depression, suicidal ideation History of same: Yes Quality: constant, getting worse Improves With: none Worsens With: alcohol Context: recent alcohol abuse Associated Symptoms: denies other symptoms Treatments Prior to Arrival: placed on mental health hold If Self Harm: admits thoughts of self harm - Related Data Home Medications Medication Instructions Recorded Confirmed oxyCODONE HCL/ACETAMINOPHEN 1 tab PO QID PRN 03/29/23 04/14/25 [Percocet 7.5-325 mg] Montelukast [Singulair] 10 mg PO HS 12/23/24 04/14/25 cloNIDine HCL [Catapres] 0.1 mg PO TID 02/19/25 04/14/25 Losartan [Cozaar] 50 mg PO DAILY 04/14/25 04/14/25 Pantoprazole [Protonix] 40 mg PO BID 04/14/25 04/14/25 Previous Rx's Medication Instructions Recorded Thiamine [Vitamin B-1] 100 mg PO BID #60 tab 12/26/24 Allergies Allergy/AdvReac Type Severity Reaction Status Date / Time celecoxib [From Celebrex] Allergy Rash/Hives Verified 04/14/25 18:46 Review of Systems ROS Statement: Those systems with pertinent positive or pertinent negative responses have been documented in the HPI. ROS Other: All systems not noted in ROS Statement are negative. Past Medical History Past Medical History: Asthma, Hyperlipidemia Additional Past Medical History / Comment(s): chronic back pain History of Any Multi-Drug Resistant Organisms: None Reported Past Surgical History: Back Surgery, Joint Replacement, Orthopedic Surgery Additional Past Surgical History / Comment(s): shoulders, femur, R hip Past Anesthesia/Blood Transfusion Reactions: No Reported Reaction Past Psychological History: Anxiety, Depression Smoking Status: Never smoker, Smoker, current status unknown Past Alcohol Use History: Abuse, Daily, Heavy Past Drug Use History: Marijuana - Past Family History Father Family Medical History: Cancer Additional Family Medical History / Comment(s): Father from metastatic cancer/lung cancer. Mother Family Medical History: Renal Disease Additional Family Medical History / Comment(s): Mother was on dialysis. She is . General Exam Limitations: no limitations General appearance: alert, in no apparent distress Head exam: Present: atraumatic, normocephalic, normal inspection Eye exam: Present: normal appearance, PERRL, EOMI. Absent: scleral icterus, con junctival injection, periorbital swelling ENT exam: Present: normal exam, mucous membranes moist Neck exam: Present: normal inspection. Absent: tenderness, meningismus, lymphadenopathy Respiratory exam: Present: normal lung sounds bilaterally. Absent: respiratory distress, wheezes, rales, rhonchi, stridor Cardiovascular Exam: Present: regular rate, normal rhythm, normal heart sounds. Absent: systolic murmur, diastolic murmur, rubs, gallop, clicks GI/Abdominal exam: Present: soft, normal bowel sounds. Absent: distended, tenderness, guarding, rebound, rigid Extremities exam: Present: normal inspection, full ROM, normal capillary refill. Absent: tenderness, pedal edema, joint swelling, calf tenderness Back exam: Present: normal inspection Neurological exam: Present: alert, oriented X3, CN II-XII intact Psychiatric exam: Present: normal affect, normal mood Skin exam: Present: warm, dry, intact, normal color. Absent: rash Course Vital Signs 04/14/25 04/14/25 04/14/25 16:55 17:06 22:34 Temperature 97.6 F 98.4 F Pulse Rate 79 91 Respiratory 18 18 Rate Blood Pressure 131/94 151/75 O2 Sat by Pulse 97 98 Oximetry 04/15/25 04/15/25 04/15/25 02:00 05:00 07:30 Temperature 98.7 F 98.8 F Pulse Rate 87 88 Respiratory 18 17 Rate Blood Pressure 152/92 127/85 O2 Sat by Pulse 99 98 Oximetry 04/15/25 04/15/25 04/15/25 09:00 10:00 11:12 Temperature 99.5 F Pulse Rate 78 Respiratory 18 19 16 Rate Blood Pressure 139/79 O2 Sat by Pulse 96 Oximetry 04/15/25 04/15/25 04/15/25 13:00 15:03 18:18 Temperature 98.3 F 99.1 F Pulse Rate 92 88 Respiratory 18 17 19 Rate Blood Pressure 167/95 168/112 O2 Sat by Pulse 99 99 Oximetry 04/15/25 04/15/25 22:12 23:08 Temperature 98.2 F Pulse Rate 100 85 Respiratory 18 18 Rate Blood Pressure 193/118 156/91 O2 Sat by Pulse 100 98 Oximetry - Reevaluation(s) Reevaluation #1: 04/14/25 18:56 Medical records reviewed Reevaluation #2: 04/14/25 18:56 Patient symptoms unchanged Reevaluation #3: 04/14/25 18:56 Patient informed of results questions answered Reevaluation #4: Was pt. sent in by a medical professional or institution (MARCELO Strong, DESIGN DRAFTSMAN, urgent care, hospital, or retirement...) When possible be specific @ -no Did you speak to anyone other than the patient for history (EMS, parent, family, police, friend...)? What history was obtained from this source @ -no Did you review nursing and triage notes (agree or disagree)? Why? @ -agree Are old charts reviewed (outside hosp., previous admission, EMS record, old EKG, old radiological studies, urgent care reports/EKG's, retirement records)? Report findings @ -yes Differential Diagnosis (chest pain, altered mental status, abdominal pain women, abdominal pain men, vaginal bleeding, weakness, fever, dyspnea, syncope, headach e, dizziness, GI bleed, back pain, seizure, CVA, palpatations, mental health, musculoskeletal)? @ -prior EKG interpreted by me (3pts min.). @ -no X-rays interpreted by me (1pt min.). @ -no CT interpreted by me (1pt min.). @ -no U/S interpreted by me (1pt. min.). @ -no What testing was considered but not performed or refused? (CT, X-rays, U/S, labs)? Why? @ -none What meds were considered but not given or refused? Why? @ -none Did you discuss the management of the patient with other professionals (professionals i.e. , MARCELO, DESIGN DRAFTSMAN, lab, RT, psych nurse, social problems specialist, fondant machine operator, teacher, railroad police officer, case hardener)? Give summary @ -no Was smoking cessation discussed for >3mins.? @ -no Was critical care preformed (if so, how long)? @ -no Were there social determinants of health that impacted care today? How? (Homelessness, low income, unemployed, alcoholism, drug addiction, transpor tation, low edu. Level, literacy, decrease access to med. care, retirement, rehab)? @ -none Was there de-escalation of care discussed even if they declined (Discuss DNR or withdrawal of care, Hospice)? DNR status @ -no What co-morbidities impacted this encounter? (DM, HTN, Smoking, COPD, CAD, Cancer, CVA, ARF, Chemo, Hep., AIDS, mental health diagnosis, sleep apnea, morbid obesity)? @ -none Was patient admitted / discharged? Hospital course, mention meds given and route, prescriptions, significant lab abnormalities, going to OR and other pertinent info. @ - 60 male to the ER for evaluation of acute alcohol intoxication movement for alcohol intoxication pending alcohol withdrawal severe major depression Admitted Undiagnosed new problem with uncertain prognosis? @ -no Drug Therapy requiring intensive monitoring for toxicity (Heparin, Nitro, Insulin, Cardizem)? @ -no Were any procedures done? @ -no Diagnosis/symptom? @ -Alcohol withdrawal alcohol intoxication depression Acute, or Chronic, or Acute on Chronic? @ -Acute Uncomplicated (without systemic symptoms) or Complicated (systemic symptoms)? @ -Complicated Side effects of treatment? @ -no Exacerbation, Progression, or Severe Exacerbation? @ -exacerbation Poses a threat to life or bodily function? How? (Chest pain, USA, NH, pneumonia, PE, COPD, DKA, ARF, appy, cholecystitis, CVA, Diverticulitis, Homicidal, Suicidal, threat to staff... and all critical care pts) @ -no Reevaluation #5: Differential Mental Health Depression, anxiety, bipolar, psychosis, schizophrenia, borderline personality, situational depression, adjustment disorder, behavioral disorder, brain tumor, malingering, substance abuse, encephalopathy, medication reaction, dementia, hypothyroidism, degenerative neurologic disorder, lupus.... This is not meant to be all-inclusive list - Consultations Consultation #1: Spoke with Dr. Salazar who agrees to admit this patient Medical Decision Making - Medical Decision Making 60 male to the ER for evaluation of acute alcohol intoxication movement for alcohol intoxication pending alcohol withdrawal severe major depression - Lab Data Result diagrams: 04/16/25 12:07 04/16/25 12:07 Lab Results 04/14/25 04/14/25 04/14/25 Range/Units 18:42 18:42 18:42 WBC 7.40 (4.50-10.00) 10*3/uL RBC 5.18 (4.40-5.60) 10*6/uL Hgb 17.5 H (13.0-17.0) g/dL Hct 47.7 (39.6-50.0) % MCV 92.1 (80.0-97.0) fL MCH 33.8 H (27.0-32.0) pg MCHC 36.7 (32.0-37.0) g/dL Plt Count 314 (140-440) 10*3/uL MPV 9.0 L (9.5-12.2) fL Immature Gran % (Auto) 0.4 % Neutrophils % 68.7 % Lymphocytes % 16.9 % Monocytes % 12.6 % Eosinophils % 0.0 % Basophils % 1.4 % Immature Gran # 0.03 (0.00-0.04) 10*3/uL Neutrophils # 5.09 (1.80-7.70) 10*3/uL Lymphocytes # 1.25 (0.90-5.00) 10*3/uL Monocytes # 0.93 (0.20-1.00) 10*3/uL Eosinophils # 0.00 L (0.04-0.35) 10*3/uL Basophils # 0.10 (0.00-0.10) 10*3/uL PT 17.4 H (10.0-12.5) sec INR 1.7 H (<1.2) Sodium 137 (137-145) mmol/L Potassium 4.0 (3.5-5.1) mmol/L Chloride 100 (98-107) mmol/L Carbon Dioxide 20 L (22-30) mmol/L Anion Gap 17 mmol/L BUN 17 (9-20) mg/dL Creatinine 0.59 L (0.66-1.25) mg/dL Est GFR (CKD-EPI)AfAm >90 (>60 ml/min/1.73 sqM) Est GFR (CKD-EPI)NonAf >90 (>60 ml/min/1.73 sqM) Glucose 267 H (74-99) mg/dL Calcium 8.9 (8.4-10.2) mg/dL Phosphorus 3.5 (2.5-4.5) mg/dL Magnesium 2.0 (1.6-2.3) mg/dL Total Bilirubin 2.3 H (0.2-1.3) mg/dL AST 393 H (17-59) U/L ALT 171 H (4-49) U/L Alkaline Phosphatase 88 (38-126) U/L Total Protein 7.2 (6.3-8.2) g/dL Albumin 4.5 (3.5-5.0) g/dL Lipase 90 (23-300) U/L Serum Alcohol 294 H* mg/dL Disposition Clinical Impression: Alcoholic intoxication, Suicidal ideations, Alcohol abuse, Alcohol abuse with withdrawal, Depression, Acute anxiety Disposition: ADMITTED IP TO THIS HOSP Condition: Fair Is patient prescribed a controlled substance at d/c from ED?: No Time of Disposition: 19:00
[2025-04-14] MEDS: DEXTROSE 5%-0.45% NACL 1,000 ML IV SCH (18:26)
[2025-04-14] MEDS: SODIUM CHLORIDE 0.9% 1,000 ML IV STA (18:26)
[2025-04-14] MEDS: LORazepam 1 MG/0.5 ML VIAL IV STA (18:26)
[2025-04-14 18:53] LABS: INR 1.7 (<1.2); Prothrombin Time 17.4 sec (10.0-12.5)
[2025-04-14] MEDS ORDERED: NALOXONE 0.4 MG/ML 1 ML VIAL IV PRN (18:57)
[2025-04-14 19:02] LABS: Basophils # (A) 0.10 10*3/uL (0.00-0.10); Basophils % (A) 1.4 %; Eosinophils # (A) 0.00 10*3/uL (0.04-0.35); Eosinophils % (A) 0.0 %; HCT 47.7 % (39.6-50.0); HGB 17.5 g/dL (13.0-17.0); Lymphocytes # (A) 1.25 10*3/uL (0.90-5.00); Lymphocytes % (A) 16.9 %; MCH 33.8 pg (27.0-32.0); MCHC 36.7 g/dL (32.0-37.0); MCV 92.1 fL (80.0-97.0); Monocytes # (A) 0.93 10*3/uL (0.20-1.00); Monocytes % (A) 12.6 %; Neutrophils # (A) 5.09 10*3/uL (1.80-7.70); Neutrophils % (A) 68.7 %; Platelet Count 314 10*3/uL (140-440); RBC 5.18 10*6/uL (4.40-5.60); RDW 12.5 % (11.5-14.5); WBC 7.40 10*3/uL (4.50-10.00)
[2025-04-14 19:06] LABS: ALT 171 U/L (4-49); African American GFR (CKD) >90 (>60 ml/min/1.73 sqM); Albumin 4.5 g/dL (3.5-5.0); Anion Gap 17 mmol/L; Blood Urea Nitrogen 17 mg/dL (9-20); Calcium 8.9 mg/dL (8.4-10.2); Carbon Dioxide 20 mmol/L (22-30); Chloride 100 mmol/L (98-107); Glucose 267 mg/dL (74-99); Lipase 90 U/L (23-300); Non-African American GFR(CKD) >90 (>60 ml/min/1.73 sqM); Sodium 137 mmol/L (137-145); Total Protein 7.2 g/dL (6.3-8.2)
[2025-04-14 19:09] LABS: Magnesium 2.0 mg/dL (1.6-2.3); Potassium 4.0 mmol/L (3.5-5.1)
[2025-04-14 19:10] LABS: AST 393 U/L (17-59); Alkaline Phosphatase 88 U/L (38-126)
[2025-04-14] MEDS: LORazepam 0.5 MG TAB PO PRN (21:13)
[2025-04-14] MEDS: LORazepam 1 MG/0.5 ML VIAL IV PRN (22:30)
[2025-04-14] MEDS: SODIUM CHLORIDE 0.9% 500 ML 500 ML IV STA (22:40)
[2025-04-15] MEDS: ONDANSETRON 4 MG/2 ML VIAL IVP PRN (02:26)
[2025-04-15] MEDS: LORazepam 1 MG/0.5 ML VIAL IV PRN ×2 (06:14→12:06)
[2025-04-15] MEDS: LORazepam 1 MG TAB PO PRN ×3 (07:30→20:39)
--- NOTE | 2025-04-15 09:48 | P.CN ---
Psychiatric Consult - . Consult date: 04/15/25 Consult:: 04/15/25 09:28 IDENTIFYING DATA: This patient is a 60-year-old male currently on disability who lives by himself. REASON FOR REFERRAL: Depression Chief complaint: "I cannot quit drinking" HISTORY OF PRESENT ILLNESS: The psychiatry was consulted for Depression. Consult note from 02/[address] Sagastume was reviewed prior to meeting the patient. The patient notes a history of depression 18 years ago after his left him. He notes that his depression as well as his anxiety are severe at this point. He notes that his [id number] brought him into the hospital due to concerns over his drinking and his lack of activity. The patient has been drinking heavy for the past 2 years and notes recently switching schnapps and has been drinking roughly a pint a day. He notes that his depression was there prior to his heavy drinking but is unsure whether he drinks because he is depressed before he is depressed because of his drinking. He does note that he enjoys drinking. He notes on average he only gets 2 hours of sleep at night related to pain issues. He notes that his energy and appetite are low. He notes that his concentration is good. Overall he feels worthless. He notes bouts of crying and feelings of guilt and shame. He denies any suicidal ideation or homicidal ideations. He notes that he has access to guns but they are not in his house. Collateral: While the patient was in the emergency room attempt to get collateral from his 2 daughters Key and Suzanne was unsuccessful. Review of psychiatric systems: Bipolar disorder-negative OCD-negative PTSD-negative Anxiety-chronic worrywart, problems initiating and maintaining sleep, muscle tension, and irritability. Psychosis-negative PAST PSYCHIATRIC HISTORY: The patient has a a history of Depression and severe alcohol use disorder. The patient is currently not on any medication but has had past trials of Mirtazapine, Bupropion, and Trazodone. Patient denies any previous psychiatric hospitalizations. Patient denies any psychiatric outpatient follow-up. Patient denies any history of suicide attempts in the past. The patient notes no sexual, verbal or physical abuse in childhood. He notes 1 prior DUI and denies any history of violence. PAST MEDICAL HISTORY: Multiple surgeries and injuries ALLERGIES: Celebrex, seasonal allergies, cats and dogs CHEMICAL DEPENDENCY HISTORY: Tobacco-chews Alcohol-first drink at the age of 9. Notes that he was drinking 3-4 beers daily until 2 years ago and switched to hard liquor whiskey about 5th daily and then switching to Schnapps. The patient has had 5 detoxes over the last year and 1 rehab. He has 1 prior DUI. Has never been on any sobriety medications. He notes going through withdrawal no DTs or seizures but notes that he has tremors, decreased appetite and GI issues. FAMILY PSYCHIATRIC/SUBSTANCE USE HISTORY: The patient's mother suffered from alcoholism SOCIAL HISTORY: The patient was born and raised in [place] and notes that his childhood was "fulfilling". He completed the 12th grade with below average grades. He worked for the [employer] until he was placed on disability due to injuries. He was for 22 years currently and has 3 adult daughters. He lives by himself. He was raised Jehovah'S Witness and considers himself rastafari. He denies any service. MENTAL STATUS EXAM: General Appearance: Patient appears to be stated age is alert, pleasant, and cooperative. Patient appears to have fair hygiene and grooming wearing hospital gown with fair eye contact. Behavior: Patient is calmly lying in bed without any agitated behavior. Speech: Patient's speech is fluent and nonpressured. Mood/Affect: Patient reports their mood is "depressed", affect is congruent Suicidality/Homicidality: Patient denies having any suicidal or homicidal ideation intent or plan. Perceptions: Patient denies any visual hallucinations and denies any auditory hallucinations Though content/process: There is no evidence of any delusional thought content and thought process is linear and goal-directed. Memory and concentration: AOX3, grossly intact for the purposes of this session. Can spell "WORLD" backwards Judgment and insight: Poor/Fair Diagnoses: Alcohol use disorder severe Alcohol withdrawal Major depressive disorder moderate Generalized anxiety disorder Tobacco use disorder Assessment: 60-year-old male presenting to the emergency room due to family members concerned over his drinking. He patient has had several admissions recently with depression. He is currently not on any antidepressants or sobriety medications. The patient notes no suicidal or homicidal ideations. He has no firearms at home. He recognizes that he needs help with his drinking but is fearful of returning to the rehab place he was before because of lack of sanitary conditions. He is in favor of sobriety medications as well as antidepressants. He does not meet level of care for inpatient psychiatric admission at this time. PLAN: -At this time patient DOES NOT meet criteria for inpatient psychiatric admission. -Would recommend the following medication changes/additions: Zoloft 50 mg take tablet by mouth once daily for depression/anxiety. Have the patient's been explained the risk and benefits of the medication. Zoloft is good for alcoholic depression. Naltrexone 50 mg take 1 tablet by mouth once daily for sobriety. -CIWA protocol with PRN Ativan for alcohol withdrawal. Continue to monitor vital signs. -sand worker to provide patient with outpatient mental health/psychiatry resources for appropriate follow up upon discharge -Sales Administrator spoke with patient about substance abuse and the harmful effects on medical and mental health, patient verbally understood and agreed. -sand worker to provide patient substance use treatment resources including AA/NA meetings in the community. -sand worker to provide patient with access line number to call for inpatient substance rehab -Communicated plan to patient's nurse -Psychiatry will sign off at this time -Please contact with any questions. 04/15/25 09:34
[2025-04-15 10:34] LABS: ALT 264 U/L (10-49); AST 465 U/L (14-35); Albumin 4.0 g/dL (3.8-4.9); Albumin/Globulin Ratio 2.11 Ratio (1.60-3.17); Alkaline Phosphatase 88 U/L (41-126); Anion Gap 10.80 mmol/L (4.00-12.00); BUN/Creat Ratio 19.75 Ratio (12.00-20.00); Blood Urea Nitrogen 15.8 mg/dL (9.0-27.0); Calcium 8.1 mg/dL (8.7-10.3); Carbon Dioxide 26.2 mmol/L (21.6-31.8); Chloride 102 mmol/L (96-109); Globulin 1.9 g/dL (1.6-3.3); Glucose 185 mg/dL (70-110); Magnesium 1.9 mg/dL (1.5-2.4); Potassium 3.8 mmol/L (3.5-5.5); Sodium 139 mmol/L (135-145); Total Protein 5.9 g/dL (6.2-8.2)
[2025-04-15 10:52] LABS: Basophils # (A) 0.09 X 10*3/uL (0.00-0.10); Basophils % (A) 1.3 %; Eosinophils # (A) 0.01 X 10*3/uL (0.04-0.35); Eosinophils % (A) 0.1 %; HCT 44.2 % (39.6-50.0); HGB 15.3 g/dL (13.0-17.0); Immature Grans, Automated 0.40 %; Lymphocytes # (A) 0.92 X 10*3/uL (0.90-5.00); Lymphocytes % (A) 12.9 %; MCH 34.2 pg (27.0-32.0); MCHC 34.6 g/dL (32.0-37.0); MCV 98.7 FL (80.0-97.0); Monocytes # (A) 0.77 X 10*3/uL (0.20-1.00); Monocytes % (A) 10.8 %; NRBC Per 100 WBC 0 X 10*3/uL (0.00-0.01); Neutrophils # (A) 5.29 X 10*3/uL (1.80-7.70); Neutrophils % (A) 74.5 %; Platelet Count 258 X 10*3/uL (140-440); RBC 4.48 X 10*6/uL (4.40-5.60); RDW 13.0 % (11.5-14.5); WBC 7.11 X 10*3/uL (4.50-10.00)
[2025-04-15] MEDS: PANTOPRAZOLE 40 MG TABLET PO SCH (19:08)
[2025-04-15] MEDS: THIAMINE 100 MG TAB PO SCH (20:36)
[2025-04-15] MEDS: MIRTAZAPINE 15 MG TAB PO SCH (20:36)
[2025-04-15] MEDS: MONTELUKAST 10 MG TAB PO SCH (20:36)
[2025-04-15] MEDS: oxyCODONE-APAP 7.5-325MG 1 EACH TAB PO PRN (23:38)
--- NOTE | 2025-04-16 00:47 | HP ---
HISTORY AND PHYSICAL CHIEF COMPLAINT: Acute alcohol intoxication. HISTORY OF PRESENT ILLNESS: This is another admission for this 60-year-old white male, who has been in and out of the hospital for several times over the last year for drunkenness. He has a lot of difficulty with depression. REVIEW OF SYSTEMS: He denies abdominal pain, vomiting, melena, hematochezia, hematemesis, etc. Past medical history, family history, personal and social histories are otherwise unremarkable, noncontributory or unchanged. PHYSICAL EXAM: VITAL SIGNS: Normal. HEAD, EARS, EYES, NOSE, MOUTH, AND THROAT: Normal. CHEST: Clear. HEART: Demonstrates sinus rhythm. ABDOMEN: Protuberant, soft, and nontender. EXTREMITIES: Normal. NEUROLOGICAL: Intact. DIAGNOSES: He is admitting to the hospital with diagnoses of: 1. Acute alcohol intoxication. 2. Chronic alcoholism. 3. Impending delirium tremens. PLAN: 1. Bed rest. 2. IV fluids. 3. [facility] protocol. MMZAHIRA / YEIMI: [id number] /
--- NOTE | 2025-04-16 02:32 | PN ---
PROGRESS NOTE DATE OF SERVICE: 04/15/2025 CHIEF COMPLAINT: Acute alcohol intoxication. HISTORY OF PRESENT ILLNESS: This gentleman is awake and alert. PHYSICAL EXAM: Chest is clear. Cardiac exam is normal. The abdomen is protuberant, soft and nontender. IMPRESSION: 1. Acute alcohol intoxication. 2. Chronic alcoholism. PLAN: Bedrest with [facility] protocol. MMODL / IJN: [id number] /
[2025-04-16] MEDS: LOSARTAN 50 MG TAB PO SCH ×2 (08:47→12:03)
[2025-04-16 12:30] LABS: Eosinophils % (A) 1.7 %; HCT 41.1 % (39.6-50.0); Lymphocytes % (A) 21.5 %; MCH 33.6 pg (27.0-32.0); MCHC 35.3 g/dL (32.0-37.0); MCV 95.4 fL (80.0-97.0); Monocytes % (A) 10.4 %; Neutrophils % (A) 65.3 %; Platelet Count 235 10*3/uL (140-440); RBC 4.31 10*6/uL (4.40-5.60); RDW 12.3 % (11.5-14.5); WBC 5.99 10*3/uL (4.50-10.00)
[2025-04-16 12:31] LABS: Basophils # (A) 0.05 10*3/uL (0.00-0.10); Basophils % (A) 0.8 %; Eosinophils # (A) 0.10 10*3/uL (0.04-0.35); Lymphocytes # (A) 1.29 10*3/uL (0.90-5.00); Monocytes # (A) 0.62 10*3/uL (0.20-1.00); Neutrophils # (A) 3.91 10*3/uL (1.80-7.70)
[2025-04-16 12:32] LABS: HGB 14.5 g/dL (13.0-17.0)
[2025-04-16 12:46] LABS: ALT 218 U/L (4-49); AST 248 U/L (17-59); African American GFR (CKD) >90 (>60 ml/min/1.73 sqM); Albumin 4.0 g/dL (3.5-5.0); Albumin/Globulin Ratio 1.6; Alkaline Phosphatase 147 U/L (38-126); Anion Gap 9 mmol/L; Blood Urea Nitrogen 11 mg/dL (9-20); Calcium 9.1 mg/dL (8.4-10.2); Carbon Dioxide 26 mmol/L (22-30); Chloride 101 mmol/L (98-107); Globulin 2.5 g/dL; Glucose 129 mg/dL (74-99); Non-African American GFR(CKD) >90 (>60 ml/min/1.73 sqM); Potassium 3.8 mmol/L (3.5-5.1); Sodium 136 mmol/L (137-145); Total Protein 6.5 g/dL (6.3-8.2)
--- NOTE | 2025-04-16 19:54 | PN ---
PROGRESS NOTE CHIEF COMPLAINT: Acute alcohol intoxication and DTs. HISTORY OF PRESENT ILLNESS: This gentleman is doing fairly well, but he still feels a little tremulous and little bit shaky. His blood sugar is slightly elevated. Liver function studies are still significantly elevated. PHYSICAL EXAMINATION: VITAL SIGNS: Blood pressure is 158/93. CHEST: Clear. CARDIAC: Normal. GENERAL: He seems a little uneasy, but he is not tremulous. IMPRESSION: 1. Acute alcohol intoxication. 2. History of hypertension. 3. Slight increase in his liver function studies. PLAN: Continue to monitor him throughout his hospitalizations. It is expected he may be able to go home tomorrow. MMODL / IJN: [id number] /
[2025-04-17 07:12] VITALS: BP 138/89; PULSE 76; RESP 16; TEMP 98.3
--- NOTE | 2025-04-18 02:29 | DS ---
DISCHARGE SUMMARY CHIEF COMPLAINT: Acute alcohol intoxication and impending DTs. HISTORY OF PRESENT ILLNESS AND PHYSICAL EXAMINATION: Details of this man's history and physical can be found in the initial workup. LABORATORY STUDIES: While he was in the hospital, he had laboratory studies, details of which can be found in the laboratory section of his chart. COURSE IN THE HOSPITAL: After admission, he was placed on bedrest, started on intravenous fluids and CIWA protocol. After 48 hours, he became more stable and was doing well. It was felt that he could be discharged. He will go home on his regular activities and be followed up in the office in several days. FINAL DIAGNOSES: 1. Acute alcohol intoxication. 2. Delirium tremens. 3. Chronic alcoholism. 4. Hypertension. 5. Depression. OPERATIONS: None. CONSULTATIONS: None. CONDITION: He is improved. MMFLAQUITOL / YEIMI: [id number] /
== END 2025-04-17 11:19 | disposition home or self-care (01) ==
LOC: EC 16:49 → 6NMEDSUR 18:57
PROVIDERS: ADMIT Family Medicine; ATTEND Family Medicine
DX: F10.231 Alcohol dependence with withdrawal delirium (principal); F10.229 Alcohol dependence with intoxication, unspecified; F32.1 Major depressive disorder, single episode, moderate; F41.1 Generalized anxiety disorder; I10 Essential (primary) hypertension; R45.851 Suicidal ideations; F17.200 Nicotine dependence, unspecified, uncomplicated; Z79.899 Other long term (current) drug therapy; Z88.6 Allergy status to analgesic agent; Z91.048 Other nonmedicinal substance allergy status
CPT/HCPCS: 96376 ×4; 82075; 96361 ×2; 96374; 96375; 99285; 36415; 80053 ×3; 83690; 83735 ×2; 84100 ×2; 85025 ×3; 85610; 80320; G0378 ×4; J2060 ×2; J2405 ×3

== ENCOUNTER 2025-05-17 21:26 | Emergency (ER) | payer MEDICARE ==
--- NOTE | 2025-05-17 22:05 | ED ---
General Adult HPI - General Chief complaint: Alcohol Stated complaint: ETOH Time Seen by Provider: 05/17/25 21:37 Source: patient Mode of arrival: wheelchair Limitations: no limitations - History of Present Illness Initial comments: Dictation was produced using [email or web address][employer] dictation software. please excuse any grammatical, word or spelling errors. Chief Complaint: 60-year-old male with alcohol intoxication and hallucinations History of Present Illness: Patient 60-year-old male with alcohol dependence states he drinks 1/5 of liquor and 12 beers daily. States that he drank 2-3 fifths today and states that he is having hallucinations states that he is seeing things that are not there. He also complains of abdominal pain. Denies any nausea vomiting. Patient states that he feels like he wants to quit alcohol. The ROS documented in this emergency department record has been reviewed and confirmed by me. Those systems with pertinent positive or negative responses have been documented in the HPI. All other systems are other negative and/or noncontributory. - Related Data Home Medications Medication Instructions Recorded Confirmed oxyCODONE HCL/ACETAMINOPHEN 1 tab PO QID PRN 03/29/23 04/14/25 [Percocet 7.5-325 mg] Montelukast [Singulair] 10 mg PO HS 12/23/24 04/14/25 cloNIDine HCL [Catapres] 0.1 mg PO TID 02/19/25 04/14/25 Losartan [Cozaar] 50 mg PO DAILY 04/14/25 04/14/25 Pantoprazole [Protonix] 40 mg PO BID 04/14/25 04/14/25 Previous Rx's Medication Instructions Recorded Thiamine [Vitamin B-1] 100 mg PO BID #60 tab 12/26/24 Allergies Allergy/AdvReac Type Severity Reaction Status Date / Time celecoxib [From Celebrex] Allergy Rash/Hives Verified 05/17/25 21:37 Review of Systems ROS Statement: Those systems with pertinent positive or pertinent negative responses have been documented in the HPI. ROS Other: All systems not noted in ROS Statement are negative. Past Medical History Past Medical History: Asthma, Hyperlipidemia Additional Past Medical History / Comment(s): chronic back pain History of Any Multi-Drug Resistant Organisms: None Reported Past Surgical History: Back Surgery, Joint Replacement, Orthopedic Surgery Additional Past Surgical History / Comment(s): shoulders, femur, R hip Past Anesthesia/Blood Transfusion Reactions: No Reported Reaction Past Psychological History: Anxiety, Depression Smoking Status: Never smoker, Smoker, current status unknown Past Alcohol Use History: Abuse, Daily, Heavy Past Drug Use History: Marijuana - Past Family History Father Family Medical History: Cancer Additional Family Medical History / Comment(s): Father from metastatic cancer/lung cancer. Mother Family Medical History: Renal Disease Additional Family Medical History / Comment(s): Mother was on dialysis. She is . General Exam - General Exam Comments Initial Comments: PHYSICAL EXAM: General Impression: Alert and oriented x3, not in acute distress HEENT: Normocephalic atraumatic, extra-ocular movements intact, pupils equal and reactive to light bilaterally, mucous membranes moist. Cardiovascular: Heart regular rate and rhythm Chest: Able to complete full sentences, no retractions, no tachypnea Abdomen: abdomen soft, non-tender, non-distended, no organomegaly Musculoskeletal: Pulses present and equal in all extremities, no peripheral edema Motor: no focal deficits noted Neurological: CN II-XII grossly intact, no focal motor or sensory deficits noted Skin: Intact with no visualized rashes Psych: Normal affect and mood Limitations: no limitations Course Vital Signs 05/17/25 05/17/25 05/17/25 21:34 22:30 22:31 Temperature 98.2 F Pulse Rate 119 H 113 H Respiratory 20 20 Rate Blood Pressure 159/80 135/97 O2 Sat by Pulse 96 97 Oximetry 05/17/25 05/17/25 22:56 23:04 Temperature Pulse Rate 75 76 Respiratory Rate Blood Pressure O2 Sat by Pulse Oximetry EKG Findings - EKG Comments: EKG Findings:: My EKG interpretation: Ventricular rate 100, sinus tachycardia, NJ 149, cures 134, QTc 427. No NJ prolongation, no QTC prolongation, no ST or T- wave changes noted. Right bundle branch block overall, this EKG is unremarkable Medical Decision Making - Medical Decision Making Was pt. sent in by a medical professional or institution (, PA, [employer], urgent care, hospital, or half-way...) When possible be specific @ -No Did you speak to anyone other than the patient for history (EMS, parent, family, police, friend...)? What history was obtained from this source @ -No Did you review nursing and triage notes (agree or disagree)? Why? @ -I reviewed and agree with nursing and triage notes Were old charts reviewed (outside hosp., previous admission, EMS record, old EKG, old radiological studies, urgent care reports/EKG's, half-way records)? Report findings @ -No old charts were reviewed Differential Diagnosis (chest pain, altered mental status, abdominal pain women, abdominal pain men, vaginal bleeding, musculoskeletal, weakness, fever, dyspnea, syncope, headache, dizziness, GI bleed, back pain, seizure, CVA, palpatations, mental health)? @ -Differential Abdominal Pain Men: Appendicitis, cholecystitis, diverticulosis, ischemic bowel, pancreatitis, hepatitis, UTI, gastroenteritis, AAA, incarcerated hernia, bowel obstruction, constipation, inflammatory bowel, hepatitis, peptic ulcer disease, splenic infarction, perforated viscus, testicular torsion, this is not meant to be an all-inclusive list EKG interpreted by me (3pts min.). @ -See above X-rays interpreted by me (1pt min.). @ -None done CT interpreted by me (1pt min.). @ -CT shows colitis U/S interpreted by me (1pt. min.). @ -None done What testing was considered but not performed or refused? (CT, X-rays, U/S, labs)? Why? @ -None What meds were considered but not given or refused? Why? @ -None Was smoking cessation discussed for >3mins.? @ -No Were there social determinants of health that impacted care today? How? (Homelessness, low income, unemployed, alcoholism, drug addiction, transportation, low edu. Level, literacy, decrease access to med. care, snf, rehab)? @ -Alcohol dependence Was there de-escalation of care discussed even if they declined (Discuss DNR or withdrawal of care, Hospice)? DNR status @ -No What co-morbidities impacted this encounter? (DM, HTN, Smoking, COPD, CAD, Cancer, CVA, ARF, Chemo, Hep., AIDS, mental health diagnosis, sleep apnea, morbid obesity)? @ -None Was patient admitted / discharged? Hospital course, mention meds given and route, prescriptions, significant lab abnormalities, going to OR and other pertinent info. @ -60-year-old male presents with alcohol tox occasion and abdominal pain. Vital signs upon arrival are within acceptable limits. Patient has tender though nonsurgical abdomen. Laboratory evaluation obtained. Serum alcohol is 365 rest of labs within acceptable limits. Patient clinically sober at this time. Still continued to have abdominal pain. CT abdomen shows no colitis of the sigmoid ascending and descending colon. Patient still in significant pain will be admitted observation. Patient ordered for CIWA protocol. Case discussed with hospitalist for admission. General surgery consulted for abdominal pain Did you discuss the management of the patient with other professionals (lacie mancilla i.e. , PA, [employer], lab, RT, psych nurse, social work msw, employee benefits coordinator, teacher, safety and security officer, shoe parts caser)? Give summary @ -See above Was critical care preformed (if so, how long)? @ -No Undiagnosed new problem with uncertain prognosis? @ -No Drug Therapy requiring intensive monitoring for toxicity (Heparin, Nitro, Insulin, Cardizem)? @ -No Were any procedures done? @ -No Diagnosis/symptom? Acute, or Chronic, or Acute on Chronic? Uncomplicated (without systemic symptoms) or Complicated (systemic symptoms)? @ -Intractable abdominal pain Side effects of treatment? @ -No Exacerbation, Progression, or Severe Exacerbation? @ -No Poses a threat to life or bodily function? How? (Chest pain, [place], [place], pneumonia, PE, COPD, DKA, ARF, appy, cholecystitis, CVA, Diverticulitis, Homicidal, S uicidal, threat to staff... and all critical care pts) @ -yes - Lab Data Result diagrams: 05/17/25 22:06 05/17/25 22:06 Lab Results 05/17/25 05/17/25 Range/Units 22:06 22:06 WBC 7.30 (4.50-10.00) 10*3/uL RBC 5.29 (4.40-5.60) 10*6/uL Hgb 18.2 H D (13.0-17.0) g/dL Hct 48.6 (39.6-50.0) % MCV 91.9 (80.0-97.0) fL MCH 34.4 H (27.0-32.0) pg MCHC 37.4 H (32.0-37.0) g/dL Plt Count 347 (140-440) 10*3/uL MPV 8.8 L (9.5-12.2) fL Immature Gran % (Auto) 0.4 % Neutrophils % 71.9 % Lymphocytes % 17.4 % Monocytes % 9.0 % Eosinophils % 0.5 % Basophils % 0.8 % Immature Gran # 0.03 (0.00-0.04) 10*3/uL Neutrophils # 5.24 (1.80-7.70) 10*3/uL Lymphocytes # 1.27 (0.90-5.00) 10*3/uL Monocytes # 0.66 (0.20-1.00) 10*3/uL Eosinophils # 0.04 (0.04-0.35) 10*3/uL Basophils # 0.06 (0.00-0.10) 10*3/uL Sodium 135 L (137-145) mmol/L Potassium 4.1 (3.5-5.1) mmol/L Chloride 95 L (98-107) mmol/L Carbon Dioxide 20 L (22-30) mmol/L Anion Gap 20 mmol/L BUN 17 (9-20) mg/dL Creatinine 0.69 (0.66-1.25) mg/dL Est GFR (CKD-EPI)AfAm >90 (>60 ml/min/1.73 sqM) Est GFR (CKD-EPI)NonAf >90 (>60 ml/min/1.73 sqM) Glucose 205 H (74-99) mg/dL Calcium 8.9 (8.4-10.2) mg/dL Magnesium 1.9 (1.6-2.3) mg/dL Total Bilirubin 1.2 (0.2-1.3) mg/dL AST 57 (17-59) U/L ALT 30 (4-49) U/L Alkaline Phosphatase 114 (38-126) U/L Total Protein 7.5 (6.3-8.2) g/dL Albumin 4.5 (3.5-5.0) g/dL Lipase 153 (23-300) U/L Serum Alcohol 365 H* mg/dL Disposition Clinical Impression: Intractable abdominal pain Disposition: ADMITTED IP TO THIS [facility] Condition: Fair Referrals: Vinod Salazar MD [Primary Care Provider] - 1-2 days Decision Time: 02:51
[2025-05-17 22:19] LABS: Basophils # (A) 0.06 10*3/uL (0.00-0.10); Basophils % (A) 0.8 %; Eosinophils # (A) 0.04 10*3/uL (0.04-0.35); Eosinophils % (A) 0.5 %; HCT 48.6 % (39.6-50.0); Lymphocytes # (A) 1.27 10*3/uL (0.90-5.00); Lymphocytes % (A) 17.4 %; MCH 34.4 pg (27.0-32.0); MCHC 37.4 g/dL (32.0-37.0); MCV 91.9 fL (80.0-97.0); Monocytes # (A) 0.66 10*3/uL (0.20-1.00); Monocytes % (A) 9.0 %; Neutrophils # (A) 5.24 10*3/uL (1.80-7.70); Neutrophils % (A) 71.9 %; Platelet Count 347 10*3/uL (140-440); RBC 5.29 10*6/uL (4.40-5.60); RDW 11.9 % (11.5-14.5); WBC 7.30 10*3/uL (4.50-10.00)
[2025-05-17 22:21] LABS: HGB 18.2 g/dL (13.0-17.0)
[2025-05-17] MEDS: MORPHINE SULFATE 4 MG/ML SYRINGE IVP PRN (22:35)
[2025-05-17] MEDS: IPRATROPIUM-ALBUTEROL 3 ML NEB INHALATION STA (22:53)
[2025-05-17 22:58] LABS: ALT 30 U/L (4-49); AST 57 U/L (17-59); African American GFR (CKD) >90 (>60 ml/min/1.73 sqM); Albumin 4.5 g/dL (3.5-5.0); Alkaline Phosphatase 114 U/L (38-126); Anion Gap 20 mmol/L; Blood Urea Nitrogen 17 mg/dL (9-20); Calcium 8.9 mg/dL (8.4-10.2); Carbon Dioxide 20 mmol/L (22-30); Chloride 95 mmol/L (98-107); Glucose 205 mg/dL (74-99); Magnesium 1.9 mg/dL (1.6-2.3); Non-African American GFR(CKD) >90 (>60 ml/min/1.73 sqM); Potassium 4.1 mmol/L (3.5-5.1); Sodium 135 mmol/L (137-145); Total Protein 7.5 g/dL (6.3-8.2)
[2025-05-17 23:11] LABS: Lipase 153 U/L (23-300)
[2025-05-18] MEDS ORDERED: LORazepam 1 MG/0.5 ML VIAL IV PRN ×2 (01:47→01:48)
[2025-05-18] MEDS: LORazepam 1 MG/0.5 ML VIAL IV PRN (02:01)
[2025-05-18 03:00] VITALS: BP 147/82; PULSE 96; RESP 18; TEMP 98.1
--- NOTE | 2025-05-18 07:53 | CT ---
EXAM: CT Abdomen and Pelvis With Intravenous Contrast CLINICAL HISTORY: Patient states that he drank too much MASS ON KIDNEY POSSIBLY TECHNIQUE: Axial computed tomography images of the abdomen and pelvis with intravenous contrast. CTDI is 26.6 mGy and DLP is 1192.5 mGy-cm. This CT exam was performed using one or more of the following dose reduction techniques: automated exposure control, adjustment of the mA and/or kV according to patient size, and/or use of iterative reconstruction technique. COMPARISON: No relevant prior studies available. FINDINGS: Lung bases: Unremarkable. No mass. No consolidation. ABDOMEN: Liver: Hepatic steatosis. Gallbladder and bile ducts: Cholecystectomy. No ductal dilation. Pancreas: Unremarkable. No mass. No ductal dilation. Spleen: Unremarkable. No splenomegaly. Adrenals: Unremarkable. No mass. Kidneys and ureters: Unremarkable. No solid mass. No hydronephrosis. Stomach and bowel: Wall thickening of the transverse, descending, and sigmoid colon, concerning for colitis. No obstruction. PELVIS: Appendix: No findings to suggest acute appendicitis. Bladder: Unremarkable. No mass. Reproductive: Unremarkable as visualized. ABDOMEN and PELVIS: Intraperitoneal space: Unremarkable. No free air. No significant fluid collection. Bones/joints: Right hip arthroplasty. No acute fracture. No dislocation. Soft tissues: Unremarkable. Vasculature: Unremarkable. No abdominal aortic aneurysm. Lymph nodes: Unremarkable. No enlarged lymph nodes. IMPRESSION: Wall thickening of the transverse, descending, and sigmoid colon, concerning for colitis. No definite renal mass. Recommend MRI, if clinically indicated.
--- NOTE | 2025-05-18 11:26 | HP ---
HISTORY AND PHYSICAL CHIEF COMPLAINT: Abdominal pain and acute alcohol intoxication. HISTORY OF PRESENT ILLNESS: This is another admission for this gentleman, who has been having a great deal of difficulty controlling his alcoholism. He presented at this time to the emergency room intoxicated, with epigastric pain. It was felt that this was related to pancreatitis. He has had no hematemesis, melena, hematochezia, jaundice, syncope, or seizures, etc. Past medical history, family history, personal and social histories are all otherwise unchanged. PHYSICAL EXAMINATION: VITAL SIGNS: Normal. HEAD, EARS, EYES, NOSE, MOUTH AND THROAT: Normal. CHEST: Clear. CARDIAC: Normal. ABDOMEN: Slightly protuberant. He is tender over the epigastrium. There are no masses. Bowel sounds are present. EXTREMITIES: Normal. NEUROLOGICAL: He is intact. IMPRESSION: 1. Alcoholic pancreatitis. 2. Acute alcohol intoxication. 3. Chronic alcoholism. 4. Impending delirium tremens. PLAN: 1. Bed rest. 2. IV fluids. 3. [facility] protocol. MMZAHIRA / WALDON: [id number] /
--- NOTE | 2025-05-18 14:06 | PN ---
PROGRESS NOTE DATE OF SERVICE: 05/18/2025 CHIEF COMPLAINT: Pancreatitis and alcoholism. HISTORY OF PRESENT ILLNESS: This gentleman is fairly comfortable. He has had no vomiting. PHYSICAL EXAMINATION: CHEST: Clear. CARDIAC: Exam is normal. ABDOMEN: Slightly distended. He is tender over the epigastrium. IMPRESSION: 1. Acute alcohol intoxication. 2. Chronic alcoholism. 3. Alcoholic pancreatitis. PLAN: Continue with IV fluids and CIWA protocol. MMODL / IJN: [id number] /
--- NOTE | 2025-05-19 19:41 | PN ---
PROGRESS NOTE DATE OF SERVICE: 05/19/2025 CHIEF COMPLAINT: Acute alcohol intoxication, chronic alcohol alcoholism and pancreatitis. HISTORY OF PRESENT ILLNESS: This gentleman is still somewhat tremulous. He is still having epigastric discomfort and also dysphagia. PHYSICAL EXAMINATION: CHEST: Clear. CARDIAC: Normal. He is tender over the epigastrium. IMPRESSION: 1. Alcoholic pancreatitis. 2. Acute alcohol intoxication and chronic alcoholism. PLAN: Continue with IV fluids and analgesics. MMODL / IJN: [id number] /
== END 2025-05-18 03:59 | disposition other institution (70) ==
LOC: EC 21:26
DX: R10.9 Unspecified abdominal pain (principal); F17.200 Nicotine dependence, unspecified, uncomplicated; Z88.6 Allergy status to analgesic agent; Y90.8 Blood alcohol level of 240 mg/100 ml or more; Y90.9 Presence of alcohol in blood, level not specified
CPT/HCPCS: 36415; 94640; 93005; 80053; 83690; 83735; 85025; 80320; 74177; 99285; 96374; 96375; J2060; J2270; Q9967